=== PATIENT | female | born 1950 | race Caucasian/White ===

== ENCOUNTER 2019-06-12 11:58 | Outpatient (CLI) | payer MEDICARE, MEDICAID, SELFPAY ==
--- NOTE | 2019-06-12 12:01 | US_ITS ---
WS: [id number] ULTRASOUND-GUIDED LEFT BREAST BIOPSY CLINICAL INFORMATION: ABNORMAL MAMMOGRAM COMPARISON: None. FINDINGS: The procedure including risks, benefits, and complications were discussed with the patient who agreed to proceed. Using sterile technique patient was prepped and draped in the usual sterile fashion. Aft er 1% lidocaine utilizing real-time ultrasound guidance 7 14-gauge cores were obtained of the left br east lesion at the 10 o'clock position. Subsequently a titanium clip was placed in the biopsy cavity. No immediate complications. Area of biopsy was noted to be in the area of prior surgery with dense s car tissue in this area. Pathology demonstrates benign breast tissue and dense fibrosis. No malignancy identified. US/[place] [id number] IMPRESSION: 1. Uncomplicated ultrasound-guided left breast biopsy. 2. The pathology demonstrates benign breast tissue and dense fibrosis. No alba gnancy identified. Recommend 6 month follow-up diagnostic mammogram and ultraso und postbiopsy. BI-RADS: 3-Probably Benign FOLLOW UP: 6 Month Follow-up
[2019-06-12 12:35] LABS: INR 1.02 (0.8-1.2)
== END 2019-06-12 11:59 | disposition home or self-care (01) ==
LOC: RAD 11:58
PROVIDERS: Family Provider Family Medicine; PCP Family Medicine; Visit Provider Surgery
DX: Z01.812 Encounter for preprocedural laboratory examination (principal); R92.8 Other abnormal and inconclusive findings on diagnostic imaging of breast; N63.22 Unspecified lump in the left breast, upper inner quadrant
CPT/HCPCS: 19083; 36415; 85610; 88305; J2001

== ENCOUNTER → 2019-06-19 13:59 | Outpatient (BNVA) | payer MEDICARE, MEDICAID, SELFPAY | PROVIDERS: Family Provider Family Medicine; PCP Family Medicine; Visit Provider Anesthesiology | DX: M48.062 Spinal stenosis, lumbar region with neurogenic claudication (principal); M43.10 Spondylolisthesis, site unspecified; M54.2 Cervicalgia; M62.830 Muscle spasm of back; M79.671 Pain in right foot; M79.672 Pain in left foot; M17.12 Unilateral primary osteoarthritis, left knee; M25.561 Pain in right knee; Z79.891 Long term (current) use of opiate analgesic | CPT/HCPCS: 99214 ==

== ENCOUNTER → 2019-07-09 14:09 | Outpatient (BNVA) | payer MEDICARE, MEDICAID, SELFPAY | PROVIDERS: Family Provider Family Medicine; PCP Family Medicine; Visit Provider Family Medicine | DX: R19.7 Diarrhea, unspecified (principal) | CPT/HCPCS: 87493; 87505 ==

== ENCOUNTER → 2019-07-13 16:11 | Outpatient (BNVA) | payer MEDICARE, MEDICAID, SELFPAY | PROVIDERS: Family Provider Family Medicine; PCP Family Medicine; Visit Provider Family Medicine | DX: R19.7 Diarrhea, unspecified (principal) | CPT/HCPCS: 87505 ==

== ENCOUNTER → 2019-07-24 09:23 | Outpatient (BNVA) | payer MEDICARE, MEDICAID, SELFPAY | PROVIDERS: Family Provider Family Medicine; PCP Family Medicine; Visit Provider Family Medicine | DX: E03.9 Hypothyroidism, unspecified (principal); I10 Essential (primary) hypertension; E78.5 Hyperlipidemia, unspecified; Z87.39 Personal history of other diseases of the musculoskeletal system and connective tissue; K21.9 Gastro-esophageal reflux disease without esophagitis | CPT/HCPCS: 80053; 80061; 82044; 84443; 84550; 85025 ==

== ENCOUNTER → 2019-08-07 09:46 | Outpatient (BNVA) | payer MEDICARE, MEDICAID, SELFPAY | PROVIDERS: Family Provider Family Medicine; PCP Family Medicine; Visit Provider Nurse Practitioner | DX: Z76.89 Persons encountering health services in other specified circumstances (principal) | CPT/HCPCS: 99213 ==

== ENCOUNTER → 2019-11-27 13:20 | Outpatient (BNVA) | payer MEDICARE, MEDICAID, SELFPAY | PROVIDERS: Family Provider Family Medicine; PCP Family Medicine; Visit Provider Anesthesiology | DX: M54.41 Lumbago with sciatica, right side (principal); M48.062 Spinal stenosis, lumbar region with neurogenic claudication; M54.2 Cervicalgia; M43.10 Spondylolisthesis, site unspecified; Z79.891 Long term (current) use of opiate analgesic | CPT/HCPCS: 99214 ==

== ENCOUNTER → 2020-01-04 14:52 | Outpatient (BNVA) | payer MEDICARE, MEDICAID, SELFPAY | PROVIDERS: Family Provider Family Medicine; PCP Family Medicine; Referring Provider Surgery; Visit Provider Internal Medicine | DX: E03.9 Hypothyroidism, unspecified (principal); I10 Essential (primary) hypertension; I95.2 Hypotension due to drugs; R00.2 Palpitations; R11.0 Nausea | CPT/HCPCS: 84439; 84443; 99204 ==

== ENCOUNTER 2020-01-04 15:49 | Outpatient (CLI) | payer MEDICARE, MEDICAID, SELFPAY ==
[2020-01-04 17:09] LABS: Free T4 Free Thyroxine 1.66 ng/dL (0.82-1.77); Thyroid Stimulating Hormone 1.79 uIU/mL (0.27-4.20)
== END 2020-01-04 15:50 | disposition home or self-care (01) ==
LOC: LAB 15:54
PROVIDERS: PCP Family Medicine; Visit Provider Internal Medicine
DX: E03.9 Hypothyroidism, unspecified (principal)
CPT/HCPCS: 84439; 84443; 86376

== ENCOUNTER → 2020-01-15 13:39 | Outpatient (BNVA) | payer MEDICARE, MEDICAID, SELFPAY | PROVIDERS: PCP Family Medicine; Visit Provider Family Medicine | DX: I10 Essential (primary) hypertension (principal) | CPT/HCPCS: 80053; 80061 ==

== ENCOUNTER → 2020-01-27 13:26 | Outpatient (BNVA) | payer MEDICARE, MEDICAID, SELFPAY | PROVIDERS: Family Provider Family Medicine; PCP Family Medicine; Visit Provider Nurse Practitioner | DX: M48.062 Spinal stenosis, lumbar region with neurogenic claudication (principal); M54.41 Lumbago with sciatica, right side; M54.42 Lumbago with sciatica, left side; M54.2 Cervicalgia; M43.6 Torticollis; M25.561 Pain in right knee; M25.562 Pain in left knee; Z79.891 Long term (current) use of opiate analgesic | CPT/HCPCS: 99213; 99214 ==

== ENCOUNTER → 2020-01-29 15:08 | Outpatient (BNVA) | payer MEDICARE, MEDICAID, SELFPAY | PROVIDERS: Family Provider Family Medicine; PCP Family Medicine; Visit Provider Surgery | DX: Z20.828 Contact with and (suspected) exposure to other viral communicable diseases (principal) | CPT/HCPCS: 87635 ==

== ENCOUNTER 2020-01-30 13:43 | Inpatient (IN) | payer MEDICARE, MEDICAID, SELFPAY ==
[2020-01-30] VITALS (10 sets, daily range): BP systolic 103–121; BP diastolic 63–85; PULSE 68–168; RESP 16–96; TEMP 36.4–37.7; O2SAT 92–98; BMI 29.0
--- NOTE | 2020-01-30 13:55 | CTR_ITS ---
PROCEDURE INFORMATION: Exam: CT Angiography Abdomen and Pelvis With Contrast Exam date and time: 01/30/2020 2:34 PM Age: 69 years old Clinical indication: Abnormal findings; Abnormal lab test; Prior surgery; Surgery date: 6+ months; Surgery type: Hyst; Patient HX: C/O lower abd/pelvic pain w low h&h; Additional info: Abdominal pain TECHNIQUE: Imaging protocol: Computed tomographic angiography of the abdomen and pelvis with intravenous contrast material. 3D rendering (Not supervised by radiologist): MIP and/or 3D reconstructed images were created by the technologist. Radiation optimization: All CT scans at this facility use at least one of these dose optimization techniques: automated exposure control; mA and/or kV adjustment per patient size (includes targeted exams where dose is matched to clinical indication); or iterative reconstruction. Contrast material: OMNI 350; Contrast volume: 95 ml; Contrast route: INTRAVENOUS (IV); COMPARISON: No relevant prior studies available. RADIATION DOSE METRICS: Total DLP (mGy-cm): 1004.33 FINDINGS: Aorta: Scattered atherosclerotic plaque. No aortic aneurysm. No aortic dissection. Celiac trunk and mesenteric arteries: There is mild atherosclerotic plaque at the origin of the inferior mesenteric artery without significant stenosis or occlusion. No occlusion or significant stenosis. Renal arteries: No occlusion or significant stenosis. Right iliac arteries: No occlusion or significant stenosis. Left iliac arteries: No occlusion or significant stenosis. Liver: No mass. Gallbladder and bile ducts: Unremarkable. No calcified stones. No ductal dilation. Pancreas: Unremarkable. No mass. No ductal dilation. Spleen: Unremarkable. No splenomegaly. Adrenals: Unremarkable. No mass. Kidneys and ureters: Unremarkable. No solid mass. No hydronephrosis. Stomach and bowel: Multiple colonic diverticula. There is bowel wall thickening descending and rectosigmoid colon with adjacent mesenteric stranding. Appendix: No evidence of appendicitis. Intraperitoneal space: Unremarkable. No free air. No significant fluid collection. Lymph nodes: Unremarkable. No enlarged lymph nodes. Bladder: There is a small focus of air in the bladder, likely iatrogenic in nature. Reproductive: The uterus is not visualized, consistent with hysterectomy. Bones/joints: There are severe degenerative changes in the visualized spine. Lumbar levoscoliosis. Multilevel lumbar disc osteophyte complexes contribute to canal and bilateral neural foraminal narrowing. Soft tissues: Tiny fat containing umbilical hernia. Small fat containing right inguinal hernia. CT/CT angio abdomen pelvis [id number] IMPRESSION: There is bowel wall thickening of the descending and rectosigmoid colon. In the setting of a low H&H, submucosal hemorrhage is a consideration. Differential includes nonspecific colitis as well. Radiation Dose CTDIVOL = (mGy): DLP = 1004.33 (mGy-cm)
--- NOTE | 2020-01-30 14:10 | W.ED.NAVMDI ---
HPI - Nausea/Vomiting/Diarrhea General: Chief complaint: Nausea/Vomiting/Diarrhea Stated complaint: abd pain/n Time Seen by Provider: 01/30/20 13:47 Source: patient Mode of arrival: ambulatory Limitations: no limitations History of Present Illness: HPI Narrative: Lexii maxwell 69-year-old female who comes in complaining of nausea along with diarrhea and abdominal pain. Patient states her diarrhea has been loose and mucus in nature. She is had no blood in her stool but she has hemorrhoids and blood on the toilet paper when she wipes. She is not been vomiting. She denies any fevers or chills. She does not report any urinary symptoms such as dysuria or urinary frequency/urgency. She has not reported any vaginal discharge or bleeding. Patient states approximately 1 year ago she had shigellosis and was treated with antibiotics but since that time she has had problems with her bowels. The to live in the past 3 days that things have gotten worse. She is scheduled for a follow-up colonoscopy but has not had this done yet. States she has abdominal cramping with this that is intermittent in nature. It waxes and wanes in intensity when it comes on. She is unaware of anything at home that makes her symptoms better or worse. Associated nausea: Yes Associated symtoms: Reports nausea; Denies change in vision, chest pain, diaphoresis, dizziness, dysuria, fatigue, headache(s), malaise, palpitations or syncope Review of Systems Const: Denies: fever(s), chills, body aches, fatigue, malaise or diaphoresis Eyes: Denies: change in vision, blurry vision, photophobia, eye discomfort, eye discharge, eye redness or yellow eyes ENMT: Denies: throat pain, odynophagia, hoarseness, swelling of lips/tongue, ear or mastoid pain, ear discharge, change in hearing or nasal discharge Card: Denies: chest pain, palpitations, irregular heart rhythm, edema, lightheadedness, syncope, pre-syncope, dyspnea on exertion or orthopnea Resp: Denies: dyspnea, productive cough, non-productive cough, wheezing, hemoptysis or chest congestion GI: Reports: abdominal pain, nausea and diarrhea; Denies: vomiting, hematemesis, coffee ground emesis, heartburn, constipation, GI cramping, hematochezia or melena : Denies: flank pain, dysuria, urinary frequency, urinary urgency or hematuria Musc: Denies: neck pain, back pain, extremity pain, extremity swelling, joint pain, joint swelling, joint redness, joint warmth or joint stiffness Skin/Breast: Denies: rash, pruritus, erythema, skin pain or skin tenderness Neuro: Denies: headache(s), numbness in extremities, weakness in extremities, sensory changes, lack of coordination, difficulty walking, dizziness, vertigo, confusion, Slurred speech present or seizure-like activity Zach/Lymph: Denies: easy bruising, easy bleeding, petechiae, purpura or enlarged lymph nodes All/Imm: Denies: urticaria, throat swelling, tongue swelling, facial swelling or acute wheezing PFSH ED PFSH: Medical History (Updated 01/30/20 @ 22:32 by Daxa Mcmahon) Abnormal mammogram Acute bilateral knee pain Acute neck pain Arthritis of knee, left Benign essential HTN Bilateral foot pain Bladder incontinence Constipation Diverticular disease Dyslipidemia Encounter for long-term use of opiate analgesic History of gout History of shingles Hx of diabetes mellitus HX: breast cancer Hypothyroidism Lumbar paraspinal muscle spasm Pain amplification syndrome Polyneuropathy, unspecified Restless legs syndrome Retrolisthesis of vertebrae Shigellosis, unspecified Spinal stenosis, lumbar region with neurogenic claudication Surgical History H/O colonoscopy H/O: hysterectomy History of lumpectomy of left breast Hx of arthroscopy of knee Hx of cataract surgery Family History Other Cancer Diabetes Denies family history of Anesthesia complication Bleeding disorder Social History Smoking and tobacco status: former smoker Second hand smoke exposure: No Alcohol intake: never Lives independently: Yes Marital status: Single Current occupational status: retired History of recent travel: No Physical Exam Const: COMMON NORMALS: no acute distress, patient oriented x3, no limitations and alert GENERAL APPEARANCE: cooperative HENMT: COMMON NORMALS: normocephalic, atraumatic, external ears normal, EAC's normal and Normal external nose present HEAD & SCALP: normal to inspection, normocephalic and atraumatic FACE & SINUS: normal facial exam and face symmetric NOSE: Normal external nose present and Normal nares present EXTERNAL EAR: Yes external ears normal EXTERNAL AUDITORY CANAL: EAC's normal MOUTH: Normal oral and palatal mucosa present, lip normal and tongue normal Eye: COMMON NORMALS: Equal, round and reactive pupils present and conjunctivae normal GENERAL EYE: appearance normal, both eyes and all related structures ALIGNMENT: Yes alignment normal PERIORBITAL: periorbital findings normal EYELID: eyelids normal CONJUNCTIVA: Yes conjunctivae normal SCLERA: sclerae normal PUPIL: Yes Equal, round and reactive pupils present Neck/C-Spine: COMMON NORMALS: full ROM, no lymphadenopathy, supple, no meningeal signs and no JVD GENERAL: Yes normal visual inspection and Yes trachea midline Chest: COMMONS NORMALS: normal inspection of the chest and normal palpation of entire chest wall Resp: COMMON NORMALS: normal respiratory effort, No retractions, No use of accessory muscles and clear to auscultation bilaterally EFFORT & INSPECTION: Yes able to speak in complete sentences and Yes symmetric chest movement AUSCULTATION: clear to auscultation bilaterally, no crackles, no rales, no rhonchi and no wheezes Cardio: COMMON NORMALS: no JVD, regular rate, regular rhythm, S1 normal heart sound present and S2 normal heart sound present RATE: regular rate RHYTHM: regular rhythm HEART SOUNDS: S1 normal heart sound present, S2 normal heart sound present, no click, no gallops, no murmurs and no rubs GI: COMMON NORMALS: Soft to palpation and No hepatosplenomegaly present PALPATION: Yes Soft to palpation, Yes Tenderness to palpation present (GI) (Mild tenderness in the left upper quadrant and left lower quadrant. No rebound or guarding.), No Guarding due to palpation present (GI), No Rigid due to palpation, Yes No hepatosplenomegaly present, No Hernia present, No Palpable mass present and No Pulsatile mass present RECTAL EXAM: heme positive stool (Stool was light brown in color there was no gross blood present.) trace and External hemorrhoid(s) present : COMMON NORMALS: Yes no CVA tenderness BLADDER/KIDNEY EXAM: Yes no CVA tenderness EXTERNAL FEMALE EXAM: No Hernia present Back/Pelvis: COMMON NORMALS: no CVA tenderness, thoracic and lumbar spine normal to inspection, no thoracic nor lumbar tenderness and thoraco-lumbar ROM normal Extremity: COMMON NORMALS: normal to inspection, full ROM, capillary refill normal, no joint enlargement, no clubbing, cyanosis or edema and no calf tenderness Neuro: COMMON NORMALS: patient oriented x3, CN's II-XII intact bilaterally, moves all extremities, no focal motor deficits and no sensory deficits noted SENSORIUM/ORIENTATION: Yes alert MENINGEAL SIGNS: Yes no meningeal signs SPEECH: speech normal Psych: COMMON NORMALS: mental status grossly normal, Normal thought process present, cooperative, normal affect, speech normal and activity/motor behavior normal SPEECH: Yes normal speech THOUGHT PROCESS: Normal thought process present Skin: COMMON NORMALS: no rashes or lesions noted, turgor normal, no jaundice, no petechiae and no mottling GENERAL SKIN EXAM: no rashes or lesions noted and turgor normal Course ED course: 1530 -patient states she felt palpitations when she came back from CT. She felt the start when her the IV dye was given. Patient was found to be in SVT on the monitor. We tried vagal maneuvers but she did not respond. After 6 mg of adenosine her heart converted back to normal sinus rhythm. Patient denied any chest pain or shortness of breath with this but she did feel the palpitations. When she was converted she states all of her palpitations were gone. 0 -patient has a delta of 19 on her cardiac enzymes. 30 EKG shows no sign of ST segment elevation. Patient has no chest pain. I believe this elevation is likely due to the SVT that she had. I informed Dr. Gibbs that he is aware. Vital Signs: Vital signs: Vital Signs Temperature 99.8 F H 01/30/20 22:00 Pulse Rate 72 01/30/20 22:19 Respiratory Rate 18 01/30/20 22:19 Blood Pressure 116/64 01/30/20 22:19 Pulse Oximetry 98 01/30/20 22:19 MDM - Nausea/Vomiting/Diarrhea MDM Narrative: Medical decision making narrative: The patient was going to be discharged but she states she cannot handle the nausea and she is too weak. The case was discussed with Dr. Krause he agreed to come evaluate the patient for possible admission. He is aware about the patient's SVT and conversion. Lab Data: Labs: Lab Results 01/30/20 01/30/20 01/30/20 Range/Units 14:23 14:23 14:23 WBC 8.9 (4.0-10.0) 10^3/ uL RBC 4.44 (4.1-5.3) 10^6/u L Hgb 11.1 L (11.5-15.3) g/dL Hct 35.1 L (37.0-47.0) % MCV 79.1 L (81-99) fL MCH 25.0 L (28.0-34.0) pg MCHC 31.6 (30.0-36.0) g/dL RDW 15.9 H (12.1-15.1) % Plt Count 448 H (130-400) 10^3/c mm MPV 8.7 (7.4-10.4) fL Neut % (Auto) 74.5 % Lymph % (Auto) 8.8 % [place] % (Auto) 13.1 % Eos % (Auto) 2.3 % Baso % (Auto) 0.8 % Neut # (Auto) 6.63 (1.8-7.7) 10^3/u L Lymph # (Auto) 0.8 (0.8-4.8) 10^3/u L [place] # (Auto) 1.2 H (0.2-0.9) 10^3/u L Eos # (Auto) 0.2 (0.0-0.8) 10^3/u L Baso # (Auto) 0.1 (0.0-0.1) 10^3/u L Nucleated RBC % (a uto) 0 % Nucleated RBCs # 0.0 /100WBC Sodium 133 L (136-145) mmol/L Potassium 3.8 (3.5-5.1) mmol/L Chloride 98 (98-107) mmol/L Carbon Dioxide 25 (22-29) mmol/L Anion Gap 13.8 (5-19) BUN 11 (8-23) mg/dL Creatinine 1.0 H (0.5-0.9) mg/dL GFR Calculation 55.0 L (90-130) mL/min Glucose 133 H (65-115) mg/dL Estimat Average Gl ucose Hemoglobin A1c (4.0-6.0) % Calculated Osmolal ity 277 L (285-295) mOsm/k g Lactic Acid 1.1 (0.5-2.2) mmol/L Calcium 9.0 (8.5-10.5) mg/dL Magnesium 2.0 (1.7-2.3) mg/dL Total Bilirubin 0.3 (0.15-1.2) mg/dL AST 9 (0-32) U/L ALT 8 (0-33) U/L Alkaline Phosphata se 100 (35-105) IU/L Troponin T Baselin e (0-10) ng/L Troponin T 120 Min [place] band (0-10) ng/L Delta Troponin T (0-10) ABS# Total Protein 7.6 (6.6-8.7) g/dL Albumin 3.2 L (3.5-5.2) g/dL Globulin 4.4 (1.3-4.6) g/dL Lipase 13 (13-60) U/L Urine Color (Yellow) Urine Appearance (CLEAR) Urine pH (5-7) Ur Specific Gravit y (1.005-1.030) Urine Protein (Negative) Urine Glucose (UA) (Normal) Urine Ketones (Negative) Urine Blood (Negative) Urine Nitrate (Negative) Urine Bilirubin (Negative) Urine Urobilinogen (Negative) mg/dL Ur Leukocyte Carol ase (Negative) Urine RBC (0-2) /hpf Urine WBC (0-5) /hpf Ur Squamous Epith Cells (0-5) /hpf Amorphous Sediment Urine Bacteria (NONE) /hpf 01/30/20 01/30/20 01/30/20 Range/Units 14:23 14:23 16:08 WBC (4.0-10.0) 10^3/ uL RBC (4.1-5.3) 10^6/u L Hgb (11.5-15.3) g/dL Hct (37.0-47.0) % MCV (81-99) fL MCH (28.0-34.0) pg MCHC (30.0-36.0) g/dL RDW (12.1-15.1) % Plt Count (130-400) 10^3/c mm MPV (7.4-10.4) fL Neut % (Auto) % Lymph % (Auto) % [place] % (Auto) % Eos % (Auto) % Baso % (Auto) % Neut # (Auto) (1.8-7.7) 10^3/u L Lymph # (Auto) (0.8-4.8) 10^3/u L [place] # (Auto) (0.2-0.9) 10^3/u L Eos # (Auto) (0.0-0.8) 10^3/u L Baso # (Auto) (0.0-0.1) 10^3/u L Nucleated RBC % (a uto) % Nucleated RBCs # /100WBC Sodium (136-145) mmol/L Potassium (3.5-5.1) mmol/L Chloride (98-107) mmol/L Carbon Dioxide (22-29) mmol/L Anion Gap (5-19) BUN (8-23) mg/dL Creatinine (0.5-0.9) mg/dL GFR Calculation (90-130) mL/min Glucose (65-115) mg/dL Estimat Average Gl ucose 123 Hemoglobin A1c 5.9 (4.0-6.0) % Calculated Osmolal ity (285-295) mOsm/k g Lactic Acid (0.5-2.2) mmol/L Calcium (8.5-10.5) mg/dL Magnesium (1.7-2.3) mg/dL Total Bilirubin (0.15-1.2) mg/dL AST (0-32) U/L ALT (0-33) U/L Alkaline Phosphata se (35-105) IU/L Troponin T Baselin e 6 (0-10) ng/L Troponin T 120 Min [place] band (0-10) ng/L Delta Troponin T (0-10) ABS# Total Protein (6.6-8.7) g/dL Albumin (3.5-5.2) g/dL Globulin (1.3-4.6) g/dL Lipase (13-60) U/L Urine Color Straw (Yellow) Urine Appearance Hazy A (CLEAR) Urine pH 7 (5-7) Ur Specific Gravit y 1.000 L (1.005-1.030) Urine Protein Neg (Negative) Urine Glucose (UA) Norm (Normal) Urine Ketones 1+ H (Negative) Urine Blood 2+ H (Negative) Urine Nitrate Positive H (Negative) Urine Bilirubin Neg (Negative) Urine Urobilinogen Norm (Negative) mg/dL Ur Leukocyte Carol ase Negative (Negative) Urine RBC 0-4 H (0-2) /hpf Urine WBC 10-15 H (0-5) /hpf Ur Squamous Epith Cells 0-4 H (0-5) /hpf Amorphous Sediment Not Reportable Urine Bacteria 3+ H (NONE) /hpf 01/30/20 Range/Units 16:22 WBC (4.0-10.0) 10^3/ uL RBC (4.1-5.3) 10^6/u L Hgb (11.5-15.3) g/dL Hct (37.0-47.0) % MCV (81-99) fL MCH (28.0-34.0) pg MCHC (30.0-36.0) g/dL RDW (12.1-15.1) % Plt Count (130-400) 10^3/c mm MPV (7.4-10.4) fL Neut % (Auto) % Lymph % (Auto) % [place] % (Auto) % Eos % (Auto) % Baso % (Auto) % Neut # (Auto) (1.8-7.7) 10^3/u L Lymph # (Auto) (0.8-4.8) 10^3/u L [place] # (Auto) (0.2-0.9) 10^3/u L Eos # (Auto) (0.0-0.8) 10^3/u L Baso # (Auto) (0.0-0.1) 10^3/u L Nucleated RBC % (a uto) % Nucleated RBCs # /100WBC Sodium (136-145) mmol/L Potassium (3.5-5.1) mmol/L Chloride (98-107) mmol/L Carbon Dioxide (22-29) mmol/L Anion Gap (5-19) BUN (8-23) mg/dL Creatinine (0.5-0.9) mg/dL GFR Calculation (90-130) mL/min Glucose (65-115) mg/dL Estimat Average Gl ucose Hemoglobin A1c (4.0-6.0) % Calculated Osmolal ity (285-295) mOsm/k g Lactic Acid (0.5-2.2) mmol/L Calcium (8.5-10.5) mg/dL Magnesium (1.7-2.3) mg/dL Total Bilirubin (0.15-1.2) mg/dL AST (0-32) U/L ALT (0-33) U/L Alkaline Phosphata se (35-105) IU/L Troponin T Baselin e (0-10) ng/L Troponin T 120 Min [place] band 6.27 (0-10) ng/L Delta Troponin T 0.27 (0-10) ABS# Total Protein (6.6-8.7) g/dL Albumin (3.5-5.2) g/dL Globulin (1.3-4.6) g/dL Lipase (13-60) U/L Urine Color (Yellow) Urine Appearance (CLEAR) Urine pH (5-7) Ur Specific Gravit y (1.005-1.030) Urine Protein (Negative) Urine Glucose (UA) (Normal) Urine Ketones (Negative) Urine Blood (Negative) Urine Nitrate (Negative) Urine Bilirubin (Negative) Urine Urobilinogen (Negative) mg/dL Ur Leukocyte Carol ase (Negative) Urine RBC (0-2) /hpf Urine WBC (0-5) /hpf Ur Squamous Epith Cells (0-5) /hpf Amorphous Sediment Urine Bacteria (NONE) /hpf EKG Data^: EKG 1: Attestation: I personally reviewed and interpreted this EKG as follows: EKG interpretation date: 01/30/20 EKG interpretation time: 15:28 Interpretation: Supraventricular tachycardia with a ventricular rate of 173 beats a minute, normal axis, normal QTC. EKG 2: Attestation: I personally reviewed and interpreted this EKG as follows: EKG interpretation date: 01/30/20 EKG interpretation time: 15:58 Interpretation: Ectopic atrial rhythm with ventricular rate of 79 beats a minute, nonspecific ST and T wave changes. Discharge Plan Discharge Patient Disposition: Placed in Observation Admit Provider: Willie Krause Clinical Impression: Colitis, SVT (supraventricular tachycardia) Condition: Stable Referrals: Adela Phillips DO [Primary Care Provider] - 1-3 days Patient Instructions: Infectious Colitis (ED) Additional Instructions: Please return to the ER immediately for any of the signs or symptoms listed on your discharge instruction sheets, worsening/changing of your symptoms, you are not getting better as quickly as expected, or for ANY other cause or concerns. Stop your tizanidine while you are taking the ciprofloxacin for your bowel infection. Return your stool sample to the hospital so analysis can be performed. Follow a clear liquid diet and advance it as you can tolerate as your pain resolves. Follow-up with Dr. Phillips for results of your stool studies and for recheck of your symptoms. Return to the ER for fever, vomiting, increased pain, blood in your stools, or for any other cause for concern. Interventions: ED Discharge Assessment Last Done: 01/30/20 22:19 ED Charges Last Done: 01/30/20 22:19 Discharge Date/Time: 01/30/20 22:10 Coding Level of Care Code ED Enterprise Software Engineer for Chg Fwd Exam Comprehensive
[2020-01-30 14:32] LABS: Basophils # 0.1 10^3/uL (0.0-0.1); Basophils % 0.8 %; Eosinophils # 0.2 10^3/uL (0.0-0.8); Eosinophils % 2.3 %; Hematocrit 35.1 % (37.0-47.0); Hemoglobin 11.1 g/dL (11.5-15.3); Lymphocytes # 0.8 10^3/uL (0.8-4.8); Lymphocytes % 8.8 %; Mean Corpuscular HGB Conc 31.6 g/dL (30.0-36.0); Mean Corpuscular Volume 79.1 fL (81-99); Mean Platelet Volume 8.7 fL (7.4-10.4); Monocytes # 1.2 10^3/uL (0.2-0.9); Monocytes % 13.1 %; Neutrophils # 6.63 10^3/uL (1.8-7.7); Neutrophils % 74.5 %; Nucleated Red Blood Cells % 0 %; Platelet Count 448 10^3/cmm (130-400); Red Blood Count 4.44 10^6/uL (4.1-5.3); Red Cell Distribution Width 15.9 % (12.1-15.1); White Blood Count 8.9 10^3/uL (4.0-10.0)
[2020-01-30] MEDS: morphine 4 mg/mL SDV 1 mL IVP ×2 (14:46→17:24)
[2020-01-30] MEDS: ondansetron 2 mg/ML SDV 2 mL 4 MG IVP ×3 (14:46→17:25)
[2020-01-30] MEDS: sodium chloride 0.9% 1,000 ML 100 ML IV ×2 (14:47→23:48)
[2020-01-30] MEDS: iohexol 350 mg/mL 100 mL Btl IV (14:54)
[2020-01-30 14:56] LABS: Alanine Aminotransferase 8 U/L (0-33); Albumin Level 3.2 g/dL (3.5-5.2); Alkaline Phosphatase 100 IU/L (35-105); Anion Gap 13.8 (5-19); Aspartate Amino Transferase 9 U/L (0-32); Blood Urea Nitrogen 11 mg/dL (8-23); Carbon Dioxide 25 mmol/L (22-29); Chloride 98 mmol/L (98-107); Globulin 4.4 g/dL (1.3-4.6); Glucose 133 mg/dL (65-115); Lipase 13 U/L (13-60); Osmolality Calculated 277 mOsm/kg (285-295); Potassium 3.8 mmol/L (3.5-5.1); Sodium 133 mmol/L (136-145); Total Bilirubin 0.3 mg/dL (0.15-1.2); Total Protein 7.6 g/dL (6.6-8.7)
--- NOTE | 2020-01-30 15:18 | ECG_ITS ---
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 Measurements Intervals [place] Rate: 173 P: ND: -1 QRS: 38 QRSD: 90 T: 33 QT: 250 QTc: 425 Interpretive Statements SUPRAVENTRICULAR TACHYCARDIA MODERATE ST DEPRESSION [0.05+ mV ST DEPRESSION] No previous ECG available for comparison Electronically Signed On 01-30-2020 17:19:36 CDT by Ras Chambers M.D. [id number]
[2020-01-30] MEDS: sodium chloride 0.9% 1,000 ML 999 ML IV ×2 (15:21→16:00)
--- NOTE | 2020-01-30 15:23 | PC.NURSE ---
Place Electrode, rate 1698-175, informed Dr Mcmahon
[2020-01-30 15:24] LABS: Lactic Sepsis W/Reflex 1.1 mmol/L (0.5-2.2)
[2020-01-30 15:37] LABS: Troponin(5th) Baseline 6 ng/L (0-10)
[2020-01-30] MEDS: adenosine 3 mg/mL SDV 2mL 6 MG IVP (16:11)
[2020-01-30 16:29] LABS: Add Urine Microscopic? YES; Bilirubin Urine Neg (Negative); Blood Urine 2+ (Negative); Glucose Urine UA Norm (Normal); Ketones Urine 1+ (Negative); Leukocyte Esterase Urine Negative (Negative); Nitrate Urine Positive (Negative); Protein Urine Neg (Negative); Urine Appearance Hazy (CLEAR); Urine Color Straw (Yellow); Urobilinogen Urine Norm (Negative); pH Urine 7 (5-7)
[2020-01-30 16:41] LABS: Add Urine Culture? Yes; Bacteria Urine 3+ /hpf; RBC Urine 0-4 /hpf (0-2); Squamous Epithelial Cell Urine 0-4 /hpf (0-5)
[2020-01-30 17:01] LABS: Troponin 5 2HR 6.27 ng/L (0-10); Troponin 5 2HR Delta 0.27 ABS# (0-10)
--- NOTE | 2020-01-30 17:18 | ECG_ITS ---
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 Measurements Intervals [place] Rate: 79 P: -85 [place]: 156 QRS: 29 QRSD: 99 T: -77 QT: 377 QTc: 432 Interpretive Statements ECTOPIC ATRIAL RHYTHM LOW QRS VOLTAGE IN EXTREMITY LEADS [QRS DEFLECTION < 0.5 mV IN LIMB LEADS] ABNORMAL QRS-T ANGLE [QRS-T AXIS DIFFERENCE > 60] Compared to ECG 01/30/2020 15:28:38 Ectopic atrial rhythm now present Low QRS voltage now present Supraventricular tachycardia no longer present ST (T wave) deviation no longer present Electronically Signed On 01-30-2020 18:00:47 CDT by Ras Chambers M.D. [id number]
[2020-01-30] MEDS: metroNIDAZOLE 500 MG Tablet PO (17:23)
[2020-01-30] MEDS: ciprofloxacin 500 mg Tablet PO (17:23)
[2020-01-30] MEDS: piperacillin-tazobactam 3.375 GM in sodium chloride 0.9% (plus) 50 ML IV (17:24)
--- NOTE | 2020-01-30 18:01 | PC.NURSE ---
Dr Ramos in room
--- NOTE | 2020-01-30 18:11 | P.HP_ITS ---
Providers/Chief Complaint Primary Care Provider: Adela Phillips DO Chief Complaint: abd pain/n History of Present Illness Nicolette Smallwood is a 69 year old female with history of abdominal discomfort for the last year, worse in the last week. She describes nausea, passing of mucus with some flecks of blood. She states she passes the mucus about 10 times a day, and sometimes it is uncontrollable. She states bowel movements with stool are less frequent. She did have loose bowel movements over the last for 3 days. Prior to that she would pass hard stools about every 5 days. Last bowel movement this morning, hard ball of stool. She states she is so nauseated lately she cannot keep any solids down, and can only drink liquids. She had a fever about a week ago but none recently. No vomiting, hematemesis, bright red blood in stool, or black or tarry stools. She states 1 year ago she has a history of Shigella, and a colonoscopy following this was normal. She reports that surgery is planning on doing a colonoscopy on her next week. Review of Systems General: Reports: 10 or more systems reviewed and unremarkable except in HPI and below Const: Denies: fever(s) or chills Eyes: Denies: change in vision ENMT: Denies: throat pain Card: Denies: chest pain Resp: Denies: dyspnea GI: Reports: abdominal pain, nausea and constipation; Denies: vomiting : Denies: flank pain Musc: Denies: neck pain Skin/Breast: Denies: rash Neuro: Denies: headache(s) Psych: Denies: anxiety Endo: Denies: polyuria Zach/Lymph: Denies: easy bruising All/Imm: Denies: urticaria Medications/Allergies Home Medications Medication Instructions Recorded Confirmed Last Taken Type allopurinol 100 mg tablet 100 mg PO DAILY 06/19/19 01/30/20 01/29/20 History bimatoprost 0.01 % eye drops 2 drop OPHTHALMIC (EYE) BEDTIME 08/07/19 01/30/20 01/29/20 History levothyroxine 137 mcg tablet 137 mcg PO DAILY #90 tab 01/05/20 01/30/20 01/30/20 Rx hydrocodone 10 mg-acetaminophen 1 tab PO TID PRN 30 Days #90 tab 01/27/20 01/30/20 01/30/20 07:30 Rx 325 mg tablet tizanidine 4 mg tablet 4 mg PO TID PRN #90 tab 01/27/20 01/30/20 Unknown Rx esomeprazole magnesium 40 mg 40 mg PO DAILY #90 cap 01/28/20 01/30/20 01/29/20 Rx capsule,delayed release furosemide 20 mg tablet 20 mg PO DAILY PRN #30 tab 01/28/20 01/30/20 Unknown Rx montelukast 10 mg tablet 10 mg PO DAILY #90 tab 01/28/20 01/30/20 01/29/20 Rx potassium chloride 10 mEq 10 meq PO DAILY #90 tab 01/28/20 01/30/20 01/30/20 Rx tablet,extended release(part/cryst) solifenacin 10 mg tablet 10 mg PO DAILY #90 tab 01/28/20 01/30/20 01/30/20 Rx ciprofloxacin HCl [Cipro] 500 mg PO BID #20 tab 01/30/20 Unknown Rx dicyclomine 20 mg PO QID 10 Days #40 tab 01/30/20 Unknown Rx loratadine 10 mg PO DAILY 01/30/20 01/30/20 01/30/20 History losartan 50 mg PO DAILY 01/30/20 01/30/20 Unknown History metronidazole [Flagyl] 500 mg PO TID 10 Days #30 tab 01/30/20 Unknown Rx promethazine 25 mg PO Q4H PRN #20 tab 01/30/20 Unknown Rx Allergies Allergy/AdvReac Type Severity Reaction Status Date / Time meloxicam [From Mobic] Allergy myalgia Verified 01/30/20 15:10 pneumococcal 7-valent Allergy ALGY-Joint Verified 01/30/20 15:10 conjugate to Pain PFSH Acute PFSH: Medical History (Updated 01/30/20 @ 18:20 by Willie Krause MD) Abnormal mammogram Acute bilateral knee pain Acute neck pain Arthritis of knee, left Benign essential HTN Bilateral foot pain Bladder incontinence Constipation Diverticular disease Dyslipidemia Encounter for long-term use of opiate analgesic History of gout History of shingles Hx of diabetes mellitus HX: breast cancer Hypothyroidism Lumbar paraspinal muscle spasm Pain amplification syndrome Polyneuropathy, unspecified Restless legs syndrome Retrolisthesis of vertebrae Shigellosis, unspecified Spinal stenosis, lumbar region with neurogenic claudication Surgical History H/O colonoscopy H/O: hysterectomy History of lumpectomy of left breast Hx of arthroscopy of knee Hx of cataract surgery Family History Other Cancer Diabetes Denies family history of Anesthesia complication Bleeding disorder Social History Smoking and tobacco status: former smoker Second hand smoke exposure: No Alcohol intake: never Lives independently: Yes Marital status: Single Current occupational status: retired History of recent travel: No Vitals/I&O/Wt Last Vital Signs Temp 97.6 F 01/30/20 13:49 Pulse 86 01/30/20 17:22 Resp 18 01/30/20 17:24 BP 104/69 01/30/20 17:22 Pulse Ox 95 01/30/20 17:22 01/30/20 01/30/20 01/30/20 06:59 14:59 22:59 Intake Total 649.35 / 649.35 Balance 649.35 / 649.35 Weight last 48 hrs Weight 81.647 kg Physical Exam Narrative: EXAM NARRATIVE: General exam is a white female, complaining of lower abdominal pain. HEENT: Pupils equally round. Oropharynx clear. Neck is supple no lymphadenopathy or thyromegaly Cardiovascular regular rate and rhythm, no murmur Lungs clear Abdomen soft. No organomegaly. Tenderness below umbilicus bilaterally. No rebound. Positive bowel sounds. was deferred Extremities no cyanosis clubbing or edema, cap refill brisk Skin no rash Neuro no focal deficits. Data : 01/30/20 14:23 01/30/20 14:23 Other data: Lactate, LFTs, troponin all normal. Urinalysis demonstrates 10-15 whites and 0-4 reds. 3+ bacteria and positive nitrates. She has a screening nasal COVID for surgery that is pending. Chest x-ray demonstrates normal sinus rhythm, equivocal axis. Nonspecific ST-T wave flattening inferiorly CT demonstrates bowel thickening of the distal descending and rectosigmoid colon possible colitis. Diverticuli are noted. A&P Assessment and plan (1) Abdominal pain: This could be secondary to her UTI, or secondary to her constipation. There is some concerns of colitis on CT so I suppose this is possible as well. She has quite a few diverticuli. We will go ahead and get a surgery consult. She has been seeing Dr. Mjeia with a colonoscopy planned next week. Status: Acute (2) Colitis: Initiation of Cipro, Flagyl Clear liquids Status: Acute (3) Constipation: MiraLAX twice daily Colace twice daily Status: Acute (4) UTI (urinary tract infection): Cipro should cover urinary tract infection Urine culture Status: Acute (5) Anemia: Mild. Monitor. Status: Acute Additional A&P Information Mild dehydration/acute kidney injury. Fluids overnight. Chronic pain, on chronic narcotics History of hypertension. Continue home medicines Hypothyroidism continue Synthroid GERD. Protonix twice daily Gout Past history of diabetes, now diet controlled Full code Low risk for DVT. No prophylaxis currently. Observation patient. Attestations Medical Necessity Statement*: Will need less than 2 midnight stay for evaluation and treatment of abdominal pain, colitis, UTI. 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
[2020-01-30 21:14] LABS: Troponin 5 6HR 25.09 ng/L (0-10)
[2020-01-30 21:24] LABS: Troponin 5 6HR Delta 19.09 ng/L (0-12)
[2020-01-30 22:14] LABS: Estmated Average Glucose 123; Hemoglobin A1C 5.9 % (4.0-6.0)
[2020-01-30] MEDS: metroNIDAZOLE IV 500 MG/100 ML PREMIX 100 MG IV (23:51)
[2020-01-31] VITALS (7 sets, daily range): BP systolic 92–120; BP diastolic 59–76; PULSE 65–76; RESP 17–20; TEMP 36.1–37.2; O2SAT 92–97
[2020-01-31] MEDS: HYDROcodone-acetaminophen 10-325 mg Tablet 1 TAB PO ×3 (00:12→18:14)
[2020-01-31] MEDS: ondansetron 2 mg/ML SDV 2 mL 4 MG IVP ×3 (00:20→15:14)
[2020-01-31] MEDS: ciprofloxacin 400 MG/200 ML PREMIX 200 MG IV ×2 (01:08→14:18)
[2020-01-31 04:26] LABS: Basophils # 0.1 10^3/uL (0.0-0.1); Basophils % 0.9 %; Eosinophils # 0.3 10^3/uL (0.0-0.8); Eosinophils % 4.3 %; Hematocrit 29.6 % (37.0-47.0); Hemoglobin 9.3 g/dL (11.5-15.3); Lymphocytes # 0.7 10^3/uL (0.8-4.8); Lymphocytes % 10.6 %; Mean Corpuscular HGB Conc 31.4 g/dL (30.0-36.0); Mean Corpuscular Hemoglobin 25.5 pg (28.0-34.0); Mean Corpuscular Volume 81.1 fL (81-99); Mean Platelet Volume 8.7 fL (7.4-10.4); Monocytes # 1.1 10^3/uL (0.2-0.9); Monocytes % 16.9 %; Neutrophils # 4.38 10^3/uL (1.8-7.7); Neutrophils % 67.1 %; Nucleated Red Blood Cells % 0 %; Platelet Count 367 10^3/cmm (130-400); Red Blood Count 3.65 10^6/uL (4.1-5.3); Red Cell Distribution Width 15.8 % (12.1-15.1); White Blood Count 6.5 10^3/uL (4.0-10.0)
[2020-01-31] MEDS: metroNIDAZOLE IV 500 MG/100 ML PREMIX 100 MG IV ×3 (04:33→21:56)
[2020-01-31 04:49] LABS: Alanine Aminotransferase 6 U/L (0-33); Albumin Level 2.5 g/dL (3.5-5.2); Alkaline Phosphatase 75 IU/L (35-105); Anion Gap 12.8 (5-19); Aspartate Amino Transferase 7 U/L (0-32); Blood Urea Nitrogen 8 mg/dL (8-23); Calcium 7.6 mg/dL (8.5-10.5); Carbon Dioxide 24 mmol/L (22-29); Chloride 103 mmol/L (98-107); Creatinine Clr Calc Pharmacy 71.4967; Globulin 3.5 g/dL (1.3-4.6); Glucose 90 mg/dL (65-115); Osmolality Calculated 280 mOsm/kg (285-295); Potassium 3.8 mmol/L (3.5-5.1); Sodium 136 mmol/L (136-145); Total Bilirubin 0.3 mg/dL (0.15-1.2)
--- NOTE | 2020-01-31 06:35 | P.CONIM_ITS ---
Providers/Reason For Consult Consulting Physican/Specialty*: David Mejia MD Reason for Consult*: Colitis and abdominal pain Attending Physician: Willie Krause MD Primary Care Provider: Adela Phillips DO History of Present Illness History of Present Illness Chief Complaint: I am hurting History of present illness: Nicolette Smallwood is a 69 year old female known to me from previous clinical encounters, presents to the emergency department with worsening abdominal pain particularly on the left side patient has been having mucousy discharge per rectum and she is well known to have history of chronic constipation. Patient is scheduled by me to get a colonoscopy this coming Saturday CT scan of the abdomen and pelvis showed: FINDINGS: Aorta: Scattered atherosclerotic plaque. No aortic aneurysm. No aortic dissection. Celiac trunk and mesenteric arteries: There is mild atherosclerotic plaque at the origin of the inferior mesenteric artery without significant stenosis or occlusion. No occlusion or significant stenosis. Renal arteries: No occlusion or significant stenosis. Right iliac arteries: No occlusion or significant stenosis. Left iliac arteries: No occlusion or significant stenosis. Liver: No mass. Gallbladder and bile ducts: Unremarkable. No calcified stones. No ductal dilation. Pancreas: Unremarkable. No mass. No ductal dilation. Spleen: Unremarkable. No splenomegaly. Adrenals: Unremarkable. No mass. Kidneys and ureters: Unremarkable. No solid mass. No hydronephrosis. Stomach and bowel: Multiple colonic diverticula. There is bowel wall thickening descending and rectosigmoid colon with adjacent mesenteric stranding. Appendix: No evidence of appendicitis. Intraperitoneal space: Unremarkable. No free air. No significant fluid collection. Lymph nodes: Unremarkable. No enlarged lymph nodes. Bladder: There is a small focus of air in the bladder, likely iatrogenic in nature. Reproductive: The uterus is not visualized, consistent with hysterectomy. Bones/joints: There are severe degenerative changes in the visualized spine. Lumbar levoscoliosis. Multilevel lumbar disc osteophyte complexes contribute to canal and bilateral neural foraminal narrowing. Soft tissues: Tiny fat containing umbilical hernia. Small fat containing right inguinal hernia. CT/CT angio abdomen pelvis [address] IMPRESSION: There is bowel wall thickening of the descending and rectosigmoid colon. In the setting of a low H&H, submucosal hemorrhage is a consideration. Differential includes nonspecific colitis as well. General surgery was consulted for further evaluation Patient reports that her pain mostly on the left side nothing seems to make it better except by laying down, is not being referred and being dull aching, associated with nausea and passage of blood-streaked mucousy stools and she denies any other complaints except for fever about a week ago and that subsided. Review of Systems General: Reports: 10 or more systems reviewed and unremarkable except in HPI and below Meds/Allergies Home Medications and Allergies Home Medications Medication Instructions Recorded Confirmed Last Taken Type allopurinol 100 mg tablet 100 mg PO DAILY 06/19/19 01/30/20 01/29/20 History bimatoprost 0.01 % eye drops 2 drop OPHTHALMIC (EYE) BEDTIME 08/07/19 01/30/20 01/29/20 History levothyroxine 137 mcg tablet 137 mcg PO DAILY #90 tab 01/05/20 01/30/20 01/30/20 Rx hydrocodone 10 mg-acetaminophen 1 tab PO TID PRN 30 Days #90 tab 01/27/20 01/30/20 01/30/20 07:30 Rx 325 mg tablet tizanidine 4 mg tablet 4 mg PO TID PRN #90 tab 01/27/20 01/30/20 Unknown Rx esomeprazole magnesium 40 mg 40 mg PO DAILY #90 cap 01/28/20 01/30/20 01/29/20 Rx capsule,delayed release furosemide 20 mg tablet 20 mg PO DAILY PRN #30 tab 01/28/20 01/30/20 Unknown Rx montelukast 10 mg tablet 10 mg PO DAILY #90 tab 01/28/20 01/30/20 01/29/20 Rx potassium chloride 10 mEq 10 meq PO DAILY #90 tab 01/28/20 01/30/20 01/30/20 Rx tablet,extended release(part/cryst) solifenacin 10 mg tablet 10 mg PO DAILY #90 tab 01/28/20 01/30/20 01/30/20 Rx ciprofloxacin HCl [Cipro] 500 mg PO BID #20 tab 01/30/20 Unknown Rx dicyclomine 20 mg PO QID 10 Days #40 tab 01/30/20 Unknown Rx loratadine 10 mg PO DAILY 01/30/20 01/30/20 01/30/20 History losartan 50 mg PO DAILY 01/30/20 01/30/20 Unknown History metronidazole [Flagyl] 500 mg PO TID 10 Days #30 tab 01/30/20 Unknown Rx promethazine 25 mg PO Q4H PRN #20 tab 01/30/20 Unknown Rx Allergies Allergy/AdvReac Type Severity Reaction Status Date / Time meloxicam [From Mobic] Allergy myalgia Verified 01/31/20 07:03 pneumococcal 7-valent Allergy ALGY-Joint Verified 01/31/20 07:03 conjugate to Pain Current Medications Current Medications Generic Name Dose Route Start Last Admin Trade Name Freq PRN Reason Stop Dose Admin Hydrocodone Bitart/Acetaminophen 1 tab 01/30/20 22:39 01/31/20 00:12 [place] 10-325 Mg PO 1 tab TID PRN Administration pain Bimatoprost 2 drop 01/30/20 22:39 01/30/20 23:42 [place] EYE-BOTH 2 drop BEDTIME MASSIEL Administration Sodium Chloride 1,000 mls @ 100 mls/hr 01/30/20 14:00 01/30/20 23:48 Sodium Chloride 0.9% IV 100 mls/hr .Q10H MASSIEL Administration Ciprofloxacin/Dextrose 400 mg in 200 mls @ 200 mls/hr 01/30/20 22:39 01/31/20 01:08 Cipro IV 200 mls/hr Q12H MASSIEL Administration Protocol Metronidazole 500 mg in 100 mls @ 100 mls/hr 01/30/20 22:39 01/31/20 04:33 Flagyl Iv IV 100 mls/hr Q6H MASSIEL Administration Protocol Ondansetron HCl 4 mg 01/30/20 22:39 01/31/20 00:20 Zofran IVP 4 mg Q6H PRN Administration vomiting, or N/V if npo PFSH Acute PFSH: Medical History (Updated 01/31/20 @ 07:06 by David Mejia MD) Abnormal mammogram Acute bilateral knee pain Acute neck pain Arthritis of knee, left Benign essential HTN Bilateral foot pain Bladder incontinence Constipation Diverticular disease Dyslipidemia Encounter for long-term use of opiate analgesic History of gout History of shingles Hx of diabetes mellitus HX: breast cancer Hypothyroidism Lumbar paraspinal muscle spasm Pain amplification syndrome Polyneuropathy, unspecified Restless legs syndrome Retrolisthesis of vertebrae Shigellosis, unspecified Spinal stenosis, lumbar region with neurogenic claudication Surgical History H/O colonoscopy H/O: hysterectomy History of lumpectomy of left breast Hx of arthroscopy of knee Hx of cataract surgery Family History Other Cancer Diabetes Denies family history of Anesthesia complication Bleeding disorder Social History Smoking and tobacco status: former smoker Second hand smoke exposure: No Alcohol intake: never Lives independently: Yes Marital status: Single Current occupational status: retired History of recent travel: No Vitals/I&O/Wt Last Vital Signs Temp 97.6 F 01/31/20 04:00 Pulse 68 01/31/20 04:00 Resp 17 01/31/20 04:00 BP 120/76 01/31/20 04:00 Pulse Ox 97 01/31/20 04:00 01/30/20 01/30/20 01/31/20 14:59 22:59 06:59 Intake Total 649.35 / 649.35 1121.667 / 1771.017 Output Total 400 / 400 Balance 649.35 / 649.35 721.667 / 1371.017 Weight last 48 hrs Weight 180 lb Physical Exam Narrative: EXAM NARRATIVE: Patient is conscious alert oriented X3 BMI 29 Head and neck examination PERRLA no masses no cervical lymphadenopathy no jaundice Cardiac examination audible S1-S2 no murmurs no gallops no arrhythmias Chest is clear bilateral,abscence of Rhonchi or wheezes,no surgical emphysema Abdomen left sided tenderess nondistended soft no organomegaly guarding or rigidity/no signs of peritonitis Extremities no cyanosis no clubbing no edema A&P Assessment and plan (1) Colitis: After history taking physical examination and reviewing the chart and images with my personal interpretation. Ciprofloxacin and Flagyl We will postpone the colonoscopy for 6 to 8 weeks out after this episode Continue clear liquid diet for now may advance to full liquid diet through the day depends on the clinical picture No surgical intervention at at this time, once patient tolerates well p.o. intake and has no fevers can be discharged home on oral antibiotics and follow- up with me at surgery office in 2 weeks or so. Thank you for consulting general surgery to participate taking care Ms. Smallwood Assurance and education All questions have been answered and all concerns have been addressed to patient's satisfaction. Status: Acute (2) Diverticular disease: Plan of care; Review the pathology with the patient Avoid constipation Avoid seeds nuts and popcorn High Fiber diet; As Fiber softens the stool and helps prevent constipation. It also can help decrease pressure in the colon and help prevent flare-ups of diverticulitis. High-fiber foods include: ? Beans and legumes ? Bran, whole wheat bread and whole grain cereals such as oatmeal ? Brown and wild rice ? Fruits such as apples, bananas and pears ? Vegetables such as broccoli, carrots, corn and squash ? Whole wheat pasta The target is to eat 25 to 30 grams of fiber daily. Drink at least 8 cups of fluid daily. Fluid will help soften your stool.Exercise also promotes bowel movement and helps prevent constipation. Weight management Assurance and education All questions have been answered Status: Acute Consult Attestations Medical Necessity Statement: Continue hospitalization to monitor patient's abdominal pain and response to treatment Time Spent in Patient Care: (>than 50% of time spent in counselling and/or direct pt care on unit) . 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
[2020-01-31] MEDS: allopurinol 100 mg Tablet PO (09:33)
[2020-01-31] MEDS: docusate sodium 100 mg Capsule PO ×2 (09:34→18:15)
[2020-01-31] MEDS: levothyroxine 25 mcg Tablet PO (09:34)
[2020-01-31] MEDS: pantoprazole DR 40 mg Tablet PO ×2 (09:34→18:15)
[2020-01-31] MEDS: levothyroxine 112 mcg Tablet PO (09:34)
[2020-01-31] MEDS: calcium polycarbophil 625 mg Tablet PO ×2 (09:49→18:15)
[2020-01-31] MEDS: polyethylene glycol 3350 Pkt 17 gm PO (09:50)
--- NOTE | 2020-01-31 10:19 | PC.CHAP ---
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 Relational/Emotional Strength [] Patient feels connected with others/family/visitors/staff [] Distress [] Loneliness/isolation [] Abandonment Spirituality of Patient [] Person of Brigida [] Attends Voodoo of their Brigida [] Believes in Prayer [] Reads Bible or Moravian materials [] There are Spiritual issues to be addressed Stogie Packer Interventions [] Prayer [] Active listening [] Non-anxious presence [] Spiritual/emotional support [] Crisis/trauma care [] Spiritual counseling [] Bereavement support [] Provided bereavement packet [] Provided Bible/devotional materials [] Provided toy/stuffed animal, coloring book to patient or family member [] Provided Communion [] Anointing/[place] [] Salvation [] Completed spiritual assessment [] Other: Impact on Illness or Injury [] Angry [] Fearful [] Anxious [] Often cries [] Exhaustion [] Unable to work [] Unable to attend hindu [] Unable to walk/stand [] Unable to read [] Unable to drive [] Unable to eat/drink [] Unable to sleep [] Unable to be with family [] Patient intubated [] Other: Summary Patient needs follow up visit. Time spent with patient 2 minutes.
--- NOTE | 2020-01-31 11:45 | P.PN_ITS ---
Subjective Subjective: Interval history: Nicolette reports she is only minimally better. She has had several bowel movements. She reports that with the bowel movements her abdomen does feel better. Still nauseated. Medications: Reviewed: Yes Vitals/I&O/Wt Last Vital Signs Temp 99.0 F 01/31/20 11:43 Pulse 76 01/31/20 11:43 Resp 18 01/31/20 11:43 BP 99/59 01/31/20 11:43 Pulse Ox 96 01/31/20 11:43 01/30/20 01/31/20 01/31/20 22:59 06:59 14:59 Intake Total 649.35 / 649.35 1221.667 / 1871.017 240 / 240 Output Total 400 / 400 Balance 649.35 / 649.35 821.667 / 1471.017 240 / 240 Weight last 48 hrs Weight 81.647 kg Physical Exam Narrative: EXAM NARRATIVE: General exam is a white female Cardiovascular regular rate and rhythm, no murmur Lungs clear Abdomen soft. No organomegaly. Tenderness below umbilicus bilaterally. No rebound. Positive bowel sounds. Extremities no cyanosis clubbing or edema Data : 01/31/20 03:56 01/31/20 03:56 A&P Assessment and plan (1) Abdominal pain: This could be secondary to her UTI, or secondary to her constipation. There is some concerns of colitis on CT so I suppose this is possible as well. She has quite a few diverticuli. Appreciate surgical consultation Continue Flagyl, Cipro Status: Acute (2) Colitis: Initiation of Cipro, Flagyl Clear liquids currently. As improves diet can be advanced. Status: Acute (3) Constipation: MiraLAX twice daily Colace twice daily Status: Acute (4) UTI (urinary tract infection): Cipro should cover urinary tract infection Urine culture Status: Acute (5) Anemia: Mild. Monitor. Status: Acute Additional A&P Information Mild dehydration/acute kidney injury. Continue fluids Elevated troponin. Patient did not have chest discomfort. However had significant palpitations after receiving contrast for CT scan and went into SVT, requiring adenosine. This explains her elevated troponin with equivocal delta. Telemetry. Chronic pain, on chronic narcotics History of hypertension. Continue home medicines Hypothyroidism continue Synthroid GERD. Protonix twice daily Gout Past history of diabetes, now diet controlled Full code Low risk for DVT. No prophylaxis currently. Not significantly better. Continue clear liquid diet, IV antibiotics secondary to colitis not significantly improved will change to regular admission. Attestations Medical Necessity Statement*: Needs continued hospital stay for IV antibiotics secondary to colitis. 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
[2020-01-31] MEDS: sodium chloride 0.9% 1,000 ML 100 ML IV (14:19)
[2020-01-31] MEDS: scopolamine 1.5 Patch 1 PATCH TRANSDERMA (19:07)
[2020-02-01] VITALS (7 sets, daily range): BP systolic 102–126; BP diastolic 64–80; PULSE 58–74; RESP 16–18; TEMP 36.2–37.2; O2SAT 93–96
[2020-02-01] MEDS: ciprofloxacin 400 MG/200 ML PREMIX 200 MG IV ×2 (01:37→12:50)
[2020-02-01] MEDS: metroNIDAZOLE IV 500 MG/100 ML PREMIX 100 MG IV ×3 (03:11→14:39)
[2020-02-01] MEDS: ondansetron 2 mg/ML SDV 2 mL 4 MG IVP ×3 (03:14→19:37)
[2020-02-01] MEDS: sodium chloride 0.9% 1,000 ML 100 ML IV ×2 (03:14→19:43)
[2020-02-01 03:33] LABS: Basophils # 0.1 10^3/uL (0.0-0.1); Basophils % 1.1 %; Eosinophils # 0.4 10^3/uL (0.0-0.8); Eosinophils % 5.8 %; Hematocrit 29.4 % (37.0-47.0); Hemoglobin 9.2 g/dL (11.5-15.3); Lymphocytes # 0.6 10^3/uL (0.8-4.8); Lymphocytes % 9.7 %; Mean Corpuscular HGB Conc 31.3 g/dL (30.0-36.0); Mean Corpuscular Hemoglobin 24.8 pg (28.0-34.0); Mean Corpuscular Volume 79.2 fL (81-99); Mean Platelet Volume 8.7 fL (7.4-10.4); Monocytes # 0.9 10^3/uL (0.2-0.9); Monocytes % 13.9 %; Neutrophils # 4.33 10^3/uL (1.8-7.7); Neutrophils % 69.2 %; Nucleated Red Blood Cells % 0 %; Platelet Count 381 10^3/cmm (130-400); Red Blood Count 3.71 10^6/uL (4.1-5.3); White Blood Count 6.3 10^3/uL (4.0-10.0)
[2020-02-01 04:03] LABS: Anion Gap 11.4 (5-19); Blood Urea Nitrogen 5 mg/dL (8-23); Calcium 8.3 mg/dL (8.5-10.5); Carbon Dioxide 22 mmol/L (22-29); Chloride 105 mmol/L (98-107); Creatinine Clr Calc Pharmacy 71.4967; Glucose 113 mg/dL (65-115); Osmolality Calculated 278 mOsm/kg (285-295); Potassium 3.4 mmol/L (3.5-5.1); Sodium 135 mmol/L (136-145)
--- NOTE | 2020-02-01 05:44 | P.PN_ITS ---
Subjective Subjective: Interval history: Patient complains of nausea and required IV antinausea medication in addition to scopolamine patch. Patient reports loose stools and her abdominal pain is less she seems to feel better with that regard Vitals/I&O/Wt Last Vital Signs Temp 97.2 F L 02/01/20 04:00 Pulse 69 02/01/20 04:00 Resp 16 02/01/20 04:00 BP 102/66 02/01/20 04:00 Pulse Ox 95 02/01/20 04:00 01/31/20 01/31/20 02/01/20 14:59 22:59 06:59 Intake Total 1580 / 1580 320 / 1900 1100 / 3000 Balance 1580 / 1580 320 / 1900 1100 / 3000 Weight last 48 hrs Weight 180 lb Physical Exam Narrative: EXAM NARRATIVE: Patient is conscious alert oriented X3 BMI 29 Head and neck examination PERRLA no masses no cervical lymphadenopathy no jaundice Abdomen left sided tenderess less in comparison to yesterday examination nondistended soft no organomegaly guarding or rigidity/no signs of peritonitis Data : 02/01/20 03:10 02/01/20 03:10 A&P Assessment and plan (1) Colitis: On morning rounds 5:40 AM patient was on bedside commode will come later through the day for rounding. I came back at 6:20 AM to reevaluate the patient and overall from surgical standpoint of view there is no indication for surgical intervention at this point. I do believe that the patient chronic constipation related to her c hronic narcotic therapy for her musculoskeletal chronic pains will continue because an issue for the patient unless she is weaned off per pain management team. We will plan to postpone the colonoscopy due to the bout of colitis for at least 6 to 8 weeks from such an episode. Emphasis on PPI therapy to be continued as an outpatient Patient can be advanced to full liquid diet We will continue to follow on the patient's progress as an outpatient setting I would recommend to continue Cipro floxacillin and Flagyl for 10 days after discharge. Thank you for consulting general surgery to participate taking care of Ms. Smallwood Status: Acute (2) Diverticular disease: Plan of care; Review the pathology with the patient Avoid constipation Avoid seeds nuts and popcorn High Fiber diet; As Fiber softens the stool and helps prevent constipation. It also can help decrease pressure in the colon and help prevent flare-ups of diverticulitis. High-fiber foods include: ? Beans and legumes ? Bran, whole wheat bread and whole grain cereals such as oatmeal ? Brown and wild rice ? Fruits such as apples, bananas and pears ? Vegetables such as broccoli, carrots, corn and squash ? Whole wheat pasta The target is to eat 25 to 30 grams of fiber daily. Drink at least 8 cups of fluid daily. Fluid will help soften your stool.Exercise also promotes bowel movement and helps prevent constipation. Weight management Assurance and education All questions have been answered Status: Acute Attestations Medical Necessity Statement*: Will require ongoing hospitalization until resolution of nausea and tolerance of p.o. intake Time Spent in Patient Care: (>than 50% of time spent in counselling and/or direct pt care on unit) . 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
[2020-02-01] MEDS: levothyroxine 25 mcg Tablet PO (08:19)
[2020-02-01] MEDS: levothyroxine 112 mcg Tablet PO (08:19)
[2020-02-01] MEDS: pantoprazole DR 40 mg Tablet PO ×2 (08:20→17:44)
[2020-02-01] MEDS: allopurinol 100 mg Tablet PO (08:20)
[2020-02-01] MEDS: docusate sodium 100 mg Capsule PO ×2 (08:20→17:44)
--- NOTE | 2020-02-01 09:00 | PC.NURSE ---
Notified Dr Pfeiffer, patient refused Miralax and Fiber-lax and held Losartan because patient's blood pressure is 103/64.
--- NOTE | 2020-02-01 10:46 | PC.CHAP ---
Pastoral Care Encounter/Spiritual Assessment Type of Contact [] Declined market research analyst visit [] Patient/Family/Request visit [] Outpatient visit [] Follow-up visit [] Physician referral [] Code/Alert [] Routine visit [] Staff referral [] Actively dying [x] Patient sleeping [] Family support [] [] Out of room [] Palliative care [] [] Receiving care in room [] Pre-surgical visit [] Trauma [] Long length of stay [] ICU visit [] Other: Relational/Emotional Strength [] Patient feels connected with others/family/visitors/staff [] Distress [] Loneliness/isolation [] Abandonment Spirituality of Patient [] Person of Brigida [] Attends Mandaeism of their Brigida [] Believes in Prayer [] Reads Bible or Shinto materials [] There are Spiritual issues to be addressed Entry Processor Interventions [] Prayer [] Active listening [] Non-anxious presence [] Spiritual/emotional support [] Crisis/trauma care [] Spiritual counseling [] Bereavement support [] Provided bereavement packet [] Provided Bible/devotional materials [] Provided toy/stuffed animal, coloring book to patient or family member [] Provided Communion [] Anointing/[place] [] Salvation [] Completed spiritual assessment [] Other: Impact on Illness or Injury [] Angry [] Fearful [] Anxious [] Often cries [] Exhaustion [] Unable to work [] Unable to attend holiness [] Unable to walk/stand [] Unable to read [] Unable to drive [] Unable to eat/drink [] Unable to sleep [] Unable to be with family [] Patient intubated [] Other: Summary Patient was sleeping at the time of the market research analyst visit. Referred patient to the next market research analyst for a follow-up visit. Time spent with patient 3 minutes
[2020-02-01] MEDS: HYDROcodone-acetaminophen 10-325 mg Tablet 1 TAB PO (10:57)
--- NOTE | 2020-02-01 15:34 | PC.NURSE ---
rcvd verbal order from Dr Pfeiffer for GI Soft diet. senior copywriter entered diet change
--- NOTE | 2020-02-01 16:20 | PM.PN ---
Subjective Subjective: Interval history: The patient reports feeling a little better today. However she reports nausea and one episode of vomiting. She suspects that it coincided with metronidazole administration. She denies any abdominal pain. Had a bowel movement without blood in the stool. Denies fevers or chills. No chest pain, shortness of breath, cough, palpitations. Medications: Reviewed: Yes Medication Review Details: Generic Name Dose Route Start Last Admin Trade Name Freq PRN Reason Stop Dose Admin Allopurinol 100 mg 01/31/20 09:00 02/01/20 08:20 Zyloprim PO 100 mg DAILY MASSIEL Administration Bimatoprost 2 drop 01/30/20 22:39 01/31/20 20:07 Lumigan EYE-BOTH 2 drop BEDTIME MASSIEL Administration Calcium Polycarbop hil 625 mg 01/31/20 09:00 02/01/20 08:20 Fiber-Lax PO Not Given BID MASSIEL Docusate Sodium 100 mg 01/31/20 09:00 02/01/20 08:20 Colace PO 100 mg BID MASSIEL Administration Sodium Chloride 1,000 mls @ 70 ml s/hr 01/30/20 14:00 02/01/20 03:14 Sodium Chloride 0.9% IV 100 mls/hr .[id number] MASSIEL Administration Levothyroxine Sodi um 25 mcg 01/31/20 09:00 02/01/20 08:19 Synthroid PO 25 mcg DAILY MASSIEL Administration Levothyroxine Sodi um 112 mcg 01/31/20 09:00 02/01/20 08:19 Synthroid PO 112 mcg DAILY MASSIEL Administration Losartan Potassium 50 mg 01/31/20 09:00 02/01/20 08:20 Cozaar PO Not Given DAILY MASSIEL Ondansetron HCl 4 mg 01/30/20 22:39 02/01/20 09:16 Zofran IVP 4 mg Q6H PRN Administration vomiting, or N/V if npo Pantoprazole Sodiu m 40 mg 01/31/20 09:00 02/01/20 08:20 Protonix PO 40 mg BID MASSIEL Administration Polyethylene Glyco l 17 gm 01/31/20 09:00 02/01/20 08:20 Miralax PO Not Given BID MASSIEL Vitals/I&O/Wt Last Vital Signs Temp 98.4 F 02/01/20 15:20 Pulse 58 L 02/01/20 15:20 Resp 18 02/01/20 15:20 BP 126/78 02/01/20 15:20 Pulse Ox 96 02/01/20 15:20 02/01/20 02/01/20 02/01/20 06:59 14:59 22:59 Intake Total 1400 / 3300 400 / 400 Output Total 2500 / 2500 Balance -1100 / 800 400 / 400 Physical Exam Narrative: EXAM NARRATIVE: Awake alert oriented. No acute distress. Mood and affect are appropriate. Skin is warm and dry. Moist mucous membranes. Eyes PERRLA,EOMintact. Neck supple. No JVD Lungs clear bilaterally. No respiratory distress Heart S1, S2, regular Abdomen is soft, nontender, bowel sounds are present. No guarding. No rebound. Normal speech. Extremities no cyanosis, calf tenderness, edema. Moves all extremities. Data : 02/01/20 03:10 02/01/20 03:10 Micro: Microbiology 01/30/20 16:08 Urine Culture - Preliminary Urine,Clean Catch Gram Negative Rods A&P Assessment and plan (1) Abdominal pain: This could be secondary to her UTI, or secondary to her constipation. There is some concerns of colitis on CT so I suppose this is possible as well. She has quite a few diverticuli. Appreciate surgical consultation Continue Flagyl, Cipro Status: Acute (2) Colitis: Initiation of Cipro, Flagyl Clear liquids currently. As improves diet can be advanced. Status: Acute (3) Constipation: MiraLAX twice daily Colace twice daily Status: Acute (4) UTI (urinary tract infection): Cipro should cover urinary tract infection Urine culture Status: Acute (5) Anemia: Mild. Monitor. Status: Acute Additional A&P Information Mild dehydration/acute kidney injury. Continue fluids Elevated troponin. Patient did not have chest discomfort. However had significant palpitations after receiving contrast for CT scan and went into SVT, requiring adenosine. This explains her elevated troponin with equivocal delta. Telemetry. Chronic pain, on chronic narcotics History of hypertension. Continue home medicines Hypothyroidism continue Synthroid GERD. Protonix twice daily Gout Past history of diabetes, now diet controlled Full code Low risk for DVT. No prophylaxis currently. Not significantly better. Continue clear liquid diet, IV antibiotics secondary to colitis not significantly improved will change to regular admission. [place] Colitis. Overall she is doing better. However developed nausea with Flagyl. We will stop Cipro and Flagyl and start her on Zosyn. We will see how she does with diet. Will use as needed nausea medications. Will consider possibly discharging her home tomorrow. Dehydration. Will decrease IV fluid rate. We will continue monitoring her electrolytes and kidney function. SVT. Resolved. Will arrange outpatient cardiology referral. Elevated cardiac enzymes on presentation. No chest pain. Most likely was related to SVT. We will discharge her on aspirin. DVT prophylaxis. Teds and SCDs. Hyponatremia. Probably secondary to dehydration. Monitor. Hypokalemia. Replace and monitor. Anemia. Monitor. Stable. Might need outpatient follow-up. Discussed with the patient. She verbalized understanding and agreement. Discussed with Dr. Vázquez. Discussed with multidisciplinary team. Attestations Medical Necessity Statement*: Hopefully home tomorrow. 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
[2020-02-01] MEDS: potassium chloride ER 10 mEq Tablet 20 MEQ PO (17:44)
--- NOTE | 2020-02-01 17:56 | PC.NURSE ---
Patient requesting something else for nausea and stated Tramadol makes me sick notified Dr Pfeiffer. Per Dr Pfeiffer, order Phenergan 25mg PO Q6H PRN for Nausea, Stop Tramadol, Order [place] 5mg PO Q6H PRN. Wholesale Account Manager put orders in as requested.
[2020-02-01] MEDS: HYDROcodone-acetaminophen 5-325 mg Tablet 1 TAB PO (19:37)
[2020-02-01] MEDS: promethazine 25 mg Tablet PO (19:37)
[2020-02-01] MEDS: piperacillin-tazobactam 3.375 GM in sodium chloride 0.9% (plus) 50 ML IV (22:05)
[2020-02-02] VITALS (9 sets, daily range): BP systolic 107–135; BP diastolic 69–84; PULSE 59–86; RESP 16–18; TEMP 36.4–37.3; O2SAT 90–96
[2020-02-02 02:52] LABS: Basophils # 0.1 10^3/uL (0.0-0.1); Basophils % 0.9 %; Eosinophils # 0.3 10^3/uL (0.0-0.8); Eosinophils % 4.6 %; Hematocrit 31.5 % (37.0-47.0); Hemoglobin 9.7 g/dL (11.5-15.3); Lymphocytes # 0.7 10^3/uL (0.8-4.8); Lymphocytes % 10.9 %; Mean Corpuscular HGB Conc 30.8 g/dL (30.0-36.0); Mean Corpuscular Hemoglobin 25.1 pg (28.0-34.0); Mean Corpuscular Volume 81.6 fL (81-99); Mean Platelet Volume 8.6 fL (7.4-10.4); Monocytes # 0.8 10^3/uL (0.2-0.9); Monocytes % 12.3 %; Neutrophils # 4.49 10^3/uL (1.8-7.7); Neutrophils % 70.8 %; Nucleated Red Blood Cells % 0 %; Platelet Count 421 10^3/cmm (130-400); Red Blood Count 3.86 10^6/uL (4.1-5.3); Red Cell Distribution Width 16.1 % (12.1-15.1); White Blood Count 6.3 10^3/uL (4.0-10.0)
[2020-02-02 03:10] LABS: Albumin Level 2.5 g/dL (3.5-5.2); Anion Gap 13.4 (5-19); Blood Urea Nitrogen 4 mg/dL (8-23); Calcium 8.4 mg/dL (8.5-10.5); Carbon Dioxide 23 mmol/L (22-29); Chloride 105 mmol/L (98-107); Creatinine Clr Calc Pharmacy 71.4967; Glomerular Filtration Rate 71.1 mL/min (90-130); Glucose 104 mg/dL (65-115); Phosphorus 2.8 mg/dL (2.5-4.5); Potassium 3.4 mmol/L (3.5-5.1); Sodium 138 mmol/L (136-145)
[2020-02-02] MEDS: piperacillin-tazobactam 3.375 GM in sodium chloride 0.9% (plus) 50 ML IV (05:42)
[2020-02-02] MEDS: pantoprazole DR 40 mg Tablet PO ×2 (08:18→16:48)
[2020-02-02] MEDS: docusate sodium 100 mg Capsule PO ×2 (08:18→16:48)
[2020-02-02] MEDS: losartan 50 mg Tablet PO (08:18)
[2020-02-02] MEDS: promethazine 25 mg Tablet PO ×2 (08:19→16:48)
[2020-02-02] MEDS: levothyroxine 112 mcg Tablet PO (08:19)
[2020-02-02] MEDS: calcium polycarbophil 625 mg Tablet PO ×2 (08:19→16:48)
[2020-02-02] MEDS: levothyroxine 25 mcg Tablet PO (08:19)
[2020-02-02] MEDS: allopurinol 100 mg Tablet PO (08:19)
--- NOTE | 2020-02-02 08:45 | PC.NURSE ---
Patient complains of nausea throughout the night. technical writer and editor gave Phenergan this morning. Patient said her diarrhea has slowed down by still there. Patient refused Miralax this morning. Patient stated I'm eating my breakfast slow so the nausea don't get worse. Patient resting in bed, call light within reach.
[2020-02-02] MEDS: sodium chloride 0.9% 1,000 ML 100 ML IV (09:36)
[2020-02-02] MEDS: ondansetron 2 mg/ML SDV 2 mL 4 MG IVP (11:51)
[2020-02-02] MEDS: HYDROcodone-acetaminophen 5-325 mg Tablet 1 TAB PO ×2 (11:52→20:45)
[2020-02-02] MEDS: metroNIDAZOLE IV 500 MG/100 ML PREMIX 100 MG IV ×2 (13:53→20:45)
[2020-02-02] MEDS: potassium chloride premix 40 MEQ/100 ML PREMIX 25 MEQ IV (13:53)
[2020-02-02] MEDS: cefTRIAXone 1,000 MG in sodium chloride 0.9% (plus) 50 ML 100 MG IV (14:57)
[2020-02-02] MEDS: lactated ringers 1,000 ML 75 ML IV (14:58)
--- NOTE | 2020-02-02 15:56 | P.PN_ITS ---
Subjective Subjective: Interval history: The patient feels a little better. However her nausea still persists despite the fact that her antibiotics were changed. No vomiting. She is tolerating diet okay. Diarrhea. No rectal blood. No fevers or chills. No significant abdominal pain Medications: Reviewed: Yes Medication Review Details: Generic Name Dose Route Start Last Admin Trade Name Freq PRN Reason Stop Dose Admin Hydrocodone Bitart /Acetaminophen 1 tab 02/01/20 17:50 02/02/20 11:52 [place] 5-325 Mg PO 1 tab Q6H PRN Administration MODERATE PAIN Allopurinol 100 mg 01/31/20 09:00 02/02/20 08:19 Zyloprim PO 100 mg DAILY MASSIEL Administration Bimatoprost 2 drop 01/30/20 22:39 02/01/20 19:38 Lumigan EYE-BOTH 2 drop BEDTIME MASSIEL Administration Calcium Polycarbop hil 625 mg 01/31/20 09:00 02/02/20 08:19 Fiber-Lax PO 625 mg BID MASSIEL Administration Docusate Sodium 100 mg 01/31/20 09:00 02/02/20 08:18 Colace PO 100 mg BID MASSIEL Administration Potassium Chloride 40 meq in 100 mls @ 25 mls/hr 02/02/20 12:00 02/02/20 13:53 K-Yvon IV 02/02/20 15:59 25 mls/hr ONCE ONE Administration Ceftriaxone Sodium 1,000 mg/ 50 mls @ 100 mls/ hr 02/02/20 12:15 02/02/20 14:57 Sodium Chloride IV 100 mls/hr Q24H MASSIEL Administration Protocol Metronidazole 500 mg in 100 mls @ 100 mls/hr 02/02/20 12:15 02/02/20 13:53 Flagyl Iv IV 100 mls/hr Q8H MASSIEL Administration Protocol Lactated Ringer's 1,000 mls @ 75 ml s/hr 02/02/20 12:45 02/02/20 14:58 Lactated Ringers IV 75 mls/hr .[id number] MASSIEL Administration Levothyroxine Sodi um 25 mcg 01/31/20 09:00 02/02/20 08:19 Synthroid PO 25 mcg DAILY MASSIEL Administration Levothyroxine Sodi um 112 mcg 01/31/20 09:00 02/02/20 08:19 Synthroid PO 112 mcg DAILY MASSIEL Administration Losartan Potassium 50 mg 01/31/20 09:00 02/02/20 08:18 Cozaar PO 50 mg DAILY MASSIEL Administration Ondansetron HCl 4 mg 01/30/20 22:39 02/02/20 11:51 Zofran IVP 4 mg Q6H PRN Administration vomiting, or N/V if npo Pantoprazole Sodiu m 40 mg 01/31/20 09:00 02/02/20 08:18 Protonix PO 40 mg BID MASSIEL Administration Polyethylene Glyco l 17 gm 01/31/20 09:00 02/02/20 08:17 Miralax PO Not Given BID MASSIEL Promethazine HCl 25 mg 02/01/20 17:53 02/02/20 08:19 Phenergan PO 25 mg Q6H PRN Administration NAUSEA Vitals/I&O/Wt Last Vital Signs Temp 98.5 F 02/02/20 11:25 Pulse 59 L 02/02/20 11:25 Resp 16 02/02/20 11:25 BP 132/81 02/02/20 11:25 Pulse Ox 94 02/02/20 11:25 02/02/20 02/02/20 02/02/20 06:59 14:59 22:59 Intake Total 1050 / 2970 Output Total 400 / 400 Balance 1050 / 2770 -400 / -400 Physical Exam Narrative: EXAM NARRATIVE: Awake alert oriented. No acute distress. Mood and affect are appropriate. Skin is warm and dry. Moist mucous membranes. Eyes PERRLA,EOMintact. Neck supple. No JVD Lungs clear bilaterally. No respiratory distress Heart S1, S2, regular Abdomen is soft, nontender, bowel sounds are present. No guarding. No rebound. Normal speech. Extremities no cyanosis, calf tenderness, edema. Moves all extremities. Data : 02/02/20 02:40 02/02/20 02:40 Micro: Microbiology 01/30/20 16:08 Urine Culture - Final Urine,Clean Catch Escherichia coli 02/01/20 01:30 C.difficile Toxin B Gene (PCR) - Final Stool Routine Collection 01/30/20 23:35 Stool Lactoferrin - Final Stool - Stool Aspirate A&P Assessment and plan (1) Abdominal pain: This could be secondary to her UTI, or secondary to her constipation. There is some concerns of colitis on CT so I suppose this is possible as well. She has quite a few diverticuli. Appreciate surgical consultation Continue Flagyl, Cipro Status: Acute (2) Colitis: Initiation of Cipro, Flagyl Clear liquids currently. As improves diet can be advanced. Status: Acute (3) Constipation: MiraLAX twice daily Colace twice daily Status: Acute (4) UTI (urinary tract infection): Cipro should cover urinary tract infection Urine culture Status: Acute (5) Anemia: Mild. Monitor. Status: Acute Additional A&P Information Mild dehydration/acute kidney injury. Continue fluids Elevated troponin. Patient did not have chest discomfort. However had significant palpitations after receiving contrast for CT scan and went into SVT, requiring adenosine. This explains her elevated troponin with equivocal delta. Telemetry. Chronic pain, on chronic narcotics History of hypertension. Continue home medicines Hypothyroidism continue Synthroid GERD. Protonix twice daily Gout Past history of diabetes, now diet controlled Full code Low risk for DVT. No prophylaxis currently. Not significantly better. Continue clear liquid diet, IV antibiotics secondary to colitis not significantly improved will change to regular admission. [place] Colitis. Overall she is improving. Nausea has not changed significantly after we stopped Flagyl. This makes me think that Flagyl was not the cause of her nausea. I will go ahead and stop her Zosyn and start her on Rocephin and Flagyl. Rocephin would be better coverage for her urinary tract infection based on the sensitivities. UTI. Rocephin. Dehydration. Since still having diarrhea I will continue IV fluids at decreased rate. We will continue monitoring electrolytes and kidney function. SVT. Resolved. Will arrange outpatient cardiology referral. Elevated cardiac enzymes on presentation. No chest pain. Most likely was related to SVT. We will discharge her on aspirin. DVT prophylaxis. Teds and SCDs. Hyponatremia. Probably secondary to dehydration. Monitor. Hypokalemia. Replace and monitor. Anemia. Monitor. Stable. Might need outpatient follow-up. Discussed with the patient. She verbalized understanding and agreement. Attestations Medical Necessity Statement*: Plan of care requires inpatient hospitalization. 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
[2020-02-03 02:54] LABS: Basophils # 0.1 10^3/uL (0.0-0.1); Basophils % 1.3 %; Eosinophils # 0.3 10^3/uL (0.0-0.8); Eosinophils % 6.2 %; Hematocrit 30.7 % (37.0-47.0); Hemoglobin 9.8 g/dL (11.5-15.3); Mean Corpuscular HGB Conc 31.9 g/dL (30.0-36.0); Mean Corpuscular Hemoglobin 25.1 pg (28.0-34.0); Mean Corpuscular Volume 78.7 fL (81-99); Mean Platelet Volume 8.6 fL (7.4-10.4); Monocytes # 0.7 10^3/uL (0.2-0.9); Neutrophils # 3.24 10^3/uL (1.8-7.7); Neutrophils % 59.2 %; Nucleated Red Blood Cells % 0 %; Platelet Count 417 10^3/cmm (130-400); Red Cell Distribution Width 16.1 % (12.1-15.1); White Blood Count 5.5 10^3/uL (4.0-10.0)
[2020-02-03 03:15] LABS: Albumin Level 2.7 g/dL (3.5-5.2); Anion Gap 10.9 (5-19); Blood Urea Nitrogen 5 mg/dL (8-23); Calcium 7.7 mg/dL (8.5-10.5); Carbon Dioxide 25 mmol/L (22-29); Chloride 107 mmol/L (98-107); Creatinine Clr Calc Pharmacy 71.4967; Glucose 92 mg/dL (65-115); Phosphorus 2.5 mg/dL (2.5-4.5); Potassium 3.9 mmol/L (3.5-5.1); Sodium 139 mmol/L (136-145)
[2020-02-03 03:41] VITALS: BP 119/73; PULSE 59; RESP 18; TEMP 36.8; O2SAT 96
[2020-02-03] MEDS: lactated ringers 1,000 ML 75 ML IV (04:12)
[2020-02-03] MEDS: metroNIDAZOLE IV 500 MG/100 ML PREMIX 100 MG IV (04:12)
[2020-02-03 07:52] VITALS: BP 129/78; PULSE 54; RESP 18; TEMP 37.1; O2SAT 54
[2020-02-03] MEDS: levothyroxine 112 mcg Tablet PO (08:50)
[2020-02-03] MEDS: pantoprazole DR 40 mg Tablet PO (08:50)
[2020-02-03 08:51] VITALS: BP 129/78
[2020-02-03] MEDS: calcium polycarbophil 625 mg Tablet PO (08:51)
[2020-02-03] MEDS: losartan 50 mg Tablet PO (08:51)
[2020-02-03] MEDS: levothyroxine 25 mcg Tablet PO (08:52)
[2020-02-03] MEDS: allopurinol 100 mg Tablet PO (08:52)
[2020-02-03] MEDS: docusate sodium 100 mg Capsule PO (08:52)
[2020-02-03] MEDS: ondansetron 2 mg/ML SDV 2 mL 4 MG IVP (08:58)
[2020-02-03] MEDS: polyethylene glycol 3350 Pkt 17 gm PO (09:00)
[2020-02-03] MEDS: tizanidine 4 mg Tablet PO (09:15)
[2020-02-03 09:18] VITALS: PULSE 75; O2SAT 97
--- NOTE | 2020-02-03 09:22 | PC.SOCIAL ---
IMM Update Pg. 2 of IMM given and explained to patient who verbalized understanding. Original placed in chart.
[2020-02-03 10:45] VITALS: BP 107/70; PULSE 63; RESP 18; TEMP 37.2; O2SAT 91
[2020-02-03] MEDS: cefTRIAXone 1,000 MG in sodium chloride 0.9% (plus) 50 ML 100 MG IV (11:09)
--- NOTE | 2020-02-03 11:34 | P.DS_ITS ---
Discharge Providers Date of Admission: 01/31/20 11:50 Date of Discharge: February 03, 2020 Attending Provider at Admission: Willie Krause MD Attending Provider at Discharge: Edilson Pfeiffer Primary Care Provider: Adela Phillips DO Diagnoses at Discharge Discharge Diagnosis (1) Abdominal pain: Status: Acute (2) Colitis: Status: Acute (3) Constipation: Status: Acute (4) UTI (urinary tract infection): Status: Acute (5) Anemia: Status: Acute Reason for Visit Reason for Visit: abd pain/n Hospital Course Discharge Summary: this is a 69-year-old female who presented to emergency room with complaints of abdominal discomfort, diarrhea, nausea and vomiting. She was diagnosed with colitis. Failed outpatient treatments. Currently she is feeling better. Symptoms have significantly improved. Nausea and vomiting have resolved. no rectal blood. There is no fever or chills. She is eager to go home. discharge diagnoses and problem list Colitis. Overall improved. she is being discharged on Omnicef and metronidazole for additional 10 days. I chose Omnicef due to presence of UTI and the fact that urine Escherichia coli is not sensitive to Cipro.she will see Dr. Vázquez for follow-up. She will need outpatient colonoscopy for diagnosis. UTI. as above. Symptoms have resolved. Dehydration. due to diarrhea. Dehydration is resolved. She is eating and drinking. Able to maintain oral hydration. SVT. Resolved. she is being provided with outpatient referral to see Dr. Washington. Elevated cardiac enzymes on presentation. No chest pain. Most likely was related to SVT. We will discharge her on aspirin. Hyponatremia. resolved. Hypokalemia. replaced. Anemia. Stable. Outpatient monitoring by the primary care physician. Discussed with the patient. She verbalized understanding and agreement. Physical Exam Narrative: EXAM NARRATIVE: vital signs are reviewed and are stable. A febrile. Awake alert oriented. No acute distress. Mood and affect are appropriate. Skin is warm and dry. Moist mucous membranes. Eyes PERRLA,EOMintact. Neck supple. No JVD Lungs clear bilaterally. No respiratory distress Heart S1, S2, regular Abdomen is soft, nontender, bowel sounds are present. No guarding. No rebound. Normal speech. Extremities no cyanosis, calf tenderness, edema. Moves all extremities. Discharge Data Data Completed and Pending: Completed Studies During Hospitalization Category Date Time Status CT angio abdomen pelvis [id number] Stat Cat Scan 01/30/20 13:55 Completed Pending at discharge Category Date Time Status Enteric Bacterial Panel by PCR Rout ine Lab 01/30/20 23:35 Results Enteric Parasite Panel by PCR Routi ne Lab 01/30/20 23:35 Results Labs from last 24 hours 02/03/20 02/03/20 02/03/20 02:45 02:45 02:45 WBC 5.5 RBC 3.90 L Hgb 9.8 L Hct 30.7 L MCV 78.7 L MCH 25.1 L MCHC 31.9 RDW 16.1 H Plt Count 417 H MPV 8.6 Neut % (Auto) 59.2 Lymph % (Auto) 19.0 [place] % (Auto) 13.0 Eos % (Auto) 6.2 Baso % (Auto) 1.3 Neut # (Auto) 3.24 Lymph # (Auto) 1.0 [place] # (Auto) 0.7 Eos # (Auto) 0.3 Baso # (Auto) 0.1 Nucleated RBC % (a uto) 0 Nucleated RBCs # 0.0 Sodium 139 Potassium 3.9 Chloride 107 Carbon Dioxide 25 Anion Gap 10.9 BUN 5 L Creatinine 0.7 GFR Calculation 83.0 L Glucose 92 Calcium 7.7 L Phosphorus 2.5 Magnesium 2.0 Albumin 2.7 L Vitals: Last Vital Signs Temp 98.9 F 02/03/20 10:45 Pulse 63 02/03/20 10:45 Resp 18 02/03/20 10:45 BP 107/70 02/03/20 10:45 Pulse Ox 91 02/03/20 10:45 Discharge Plan Discharge Patient Disposition: Home Condition: Stable Prescriptions: New Flagyl 500 mg tablet 500 mg PO TID 10 Days Qty: 30 RF: 0 Fiber-Lax 625 mg Tablet 625 mg PO BID 30 Days Qty: 60 RF: 0 docusate sodium 100 mg Capsule 100 mg PO BID 10 Days Qty: 20 RF: 0 cefdinir 300 mg capsule 300 mg PO BID 10 Days Qty: 20 RF: 0 Zofran 4 mg tablet 4 mg PO Q6H PRN (Reason: nausea and vomiting) Qty: 20 RF: 0 Continued allopurinol 100 mg tablet 100 mg PO DAILY RF: 0 levothyroxine 137 mcg tablet 137 mcg PO DAILY Qty: 90 RF: 3 Lumigan 0.01 % drops 2 drop ophthalmic (eye) BEDTIME RF: 0 tizanidine 4 mg tablet 4 mg PO TID PRN (Reason: muscle spasticity) Qty: 90 RF: 0 hydrocodone-acetaminophen 10-325 mg tablet 1 tab PO TID PRN (Reason: pain) 30 Days Qty: 90 RF: 0 montelukast 10 mg tablet 10 mg PO DAILY Qty: 90 RF: 1 potassium chloride 10 mEq tablet,ER particles/crystals 10 meq PO DAILY Qty: 90 RF: 1 solifenacin [Vesicare] 10 mg tablet 10 mg PO DAILY Qty: 90 RF: 1 esomeprazole magnesium [Nexium] 40 mg capsule,delayed release(DR/EC) 40 mg PO DAILY Qty: 90 RF: 1 furosemide [Lasix] 20 mg tablet 20 mg PO DAILY PRN (Reason: edema) Qty: 30 RF: 0 losartan 50 mg tablet 50 mg PO DAILY RF: 0 loratadine 10 mg capsule 10 mg PO DAILY RF: 0 Discharge Orders: Discharge Order (Routine); Ordered 02/03/20 Ordered By: Edilson Pfeiffer Other Ambulatory Orders: Basic Metabolic Panel (Routine) Timeframe: 1 Week Facility: [facility] - Location: Lab - Main Lab Ordered By: Edilson Pfeiffer Complete Blood Count w/Auto (Routine) Timeframe: 1 Week Location: Determined by Patient Ordered By: Edilsno Pfeiffer Referrals: David Mejia MD [Physician] - 6 Weeks (for colonoscopy) Dipak Washington MD [Physician] - 1 week (for evaluation of episode of SVT) Adela Phillips DO [Primary Care Provider] - 1-3 days ([facility] should call you Saturday with an appointment. If you do not hear from them please call [phone]. ) Patient Instructions: Infectious Colitis (ED) Activity Restrictions/Additional Instructions: Please return to the ER immediately for any of the signs or symptoms listed on your discharge instruction sheets, worsening/changing of your symptoms, you are not getting better as quickly as expected, or for ANY other cause or concerns. Stop your tizanidine while you are taking the ciprofloxacin for your bowel infection. Return your stool sample to the hospital so analysis can be perf ormed. Follow a clear liquid diet and advance it as you can tolerate as your pain resolves. Follow-up with Dr. Phillips for results of your stool studies and for recheck of your symptoms. Return to the ER for fever, vomiting, increased pain, blood in your stools, or for any other cause for concern. Avoid constipation Avoid seeds nuts and popcorn High Fiber diet; As Fiber softens the stool and helps prevent constipation. It also can help decrease pressure in the colon and help prevent flare-ups of diverticulitis. High-fiber foods include: ? Beans and legumes ? Bran, whole wheat bread and whole grain cereals such as oatmeal ? Brown and wild rice ? Fruits such as apples, bananas and pears ? Vegetables such as broccoli, carrots, corn and squash ? Whole wheat pasta The target is to eat 25 to 30 grams of fiber daily. Drink at least 8 cups of fluid daily. Fluid will help soften your stool.Exercise also promotes bowel movement and helps prevent constipation. 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
--- NOTE | 2020-02-03 12:48 | PC.NURSE ---
discharge instructions given to patient and patient verbalized understanding of instructions. IV removed. Patient wants to shower prior to going home. shower set up.
--- NOTE | 2020-02-03 14:15 | PC.NURSE ---
patient walked to private vehicle by staff.
[2020-02-03 14:17] VITALS: BP 107/70; PULSE 63; RESP 18; TEMP 37.2; O2SAT 91
--- NOTE | 2020-02-04 09:53 | PC.NURSE ---
patient called and stated [facility] C[facility] didn't receive script for Flagyl. 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
== END 2020-02-03 14:17 | disposition home or self-care (01) | DRG 392 ==
LOC: ER 19:01 → MEDSURG 20:01
PROVIDERS: Admitting Provider Internal Medicine; Emergency Provider Emergency Medicine; PCP Family Medicine; Visit Provider Internal Medicine
DX: K52.9 Noninfective gastroenteritis and colitis, unspecified (principal); N39.0 Urinary tract infection, site not specified; N17.9 Acute kidney failure, unspecified; E87.1 Hypo-osmolality and hyponatremia; I47.1 Supraventricular tachycardia; M17.12 Unilateral primary osteoarthritis, left knee; I10 Essential (primary) hypertension; R32 Unspecified urinary incontinence; K59.09 Other constipation; K57.90 Diverticulosis of intestine, part unspecified, without perforation or abscess without bleeding; E78.5 Hyperlipidemia, unspecified; Z79.891 Long term (current) use of opiate analgesic; M10.9 Gout, unspecified; E11.9 Type 2 diabetes mellitus without complications; Z85.3 Personal history of malignant neoplasm of breast; E03.9 Hypothyroidism, unspecified; G25.81 Restless legs syndrome; Z87.891 Personal history of nicotine dependence; D64.9 Anemia, unspecified; E86.0 Dehydration; G89.29 Other chronic pain; E87.6 Hypokalemia; K21.9 Gastro-esophageal reflux disease without esophagitis
CPT/HCPCS: 12345; 36415; 74174; 80048; 80053; 80069; 81001; 83036; 83605; 83630; 83690; 83735; 84484; 85025; 87077; 87086; 87186; 87493; 87506; 87635; 93005; 96375; 99284; G0378; J0153; J0696; J0744; J2270; J2405; J2543; J3480; J7030; Q0169; Q9967; S0030

== ENCOUNTER → 2020-02-17 14:24 | Outpatient (BNVA) | payer MEDICARE, MEDICAID, SELFPAY | PROVIDERS: PCP Family Medicine; Visit Provider Family Medicine | DX: K52.9 Noninfective gastroenteritis and colitis, unspecified (principal); D64.9 Anemia, unspecified | CPT/HCPCS: 80048; 85025 ==

== ENCOUNTER → 2020-02-19 15:46 | Outpatient (BNVA) | payer MEDICARE, MEDICAID, SELFPAY | PROVIDERS: PCP Family Medicine; Visit Provider Family Medicine | DX: D64.9 Anemia, unspecified (principal) | CPT/HCPCS: 82728; 83550 ==

== ENCOUNTER → 2020-02-26 10:59 | Outpatient (BNVA) | payer MEDICARE, MEDICAID, SELFPAY | PROVIDERS: Family Provider Family Medicine; PCP Family Medicine; Visit Provider Anesthesiology | DX: M48.062 Spinal stenosis, lumbar region with neurogenic claudication (principal); M43.10 Spondylolisthesis, site unspecified; M54.2 Cervicalgia; M62.830 Muscle spasm of back; Z79.891 Long term (current) use of opiate analgesic; N30.01 Acute cystitis with hematuria; Z68.30 Body mass index [BMI] 30.0-30.9, adult; F17.211 Nicotine dependence, cigarettes, in remission; Z71.89 Other specified counseling | CPT/HCPCS: 81000; 99213; 99214 ==

== ENCOUNTER 2020-03-04 14:07 | Outpatient (CLI) | payer MEDICARE, MEDICAID, SELFPAY ==
[2020-03-04 14:55] LABS: Free T4 Free Thyroxine 1.43 ng/dL (0.82-1.77); Thyroid Stimulating Hormone 1.87 uIU/mL (0.27-4.20)
== END 2020-03-04 14:08 | disposition home or self-care (01) ==
PROVIDERS: PCP Family Medicine; Visit Provider Internal Medicine
DX: E03.9 Hypothyroidism, unspecified (principal)
CPT/HCPCS: 36415; 84439; 84443

== ENCOUNTER → 2020-03-07 15:04 | Outpatient (BNVA) | payer MEDICARE, MEDICAID, SELFPAY | PROVIDERS: PCP Family Medicine; Visit Provider Internal Medicine | DX: E03.9 Hypothyroidism, unspecified (principal); I10 Essential (primary) hypertension; I47.1 Supraventricular tachycardia | CPT/HCPCS: 99214 ==

== ENCOUNTER 2020-03-23 13:04 | Outpatient (CLI) | payer MEDICARE, MEDICAID, SELFPAY ==
--- NOTE | 2020-03-23 12:45 | USCV_ITS ---
Nicolette Smallwood Age: 69 Gender: F : 1950 Exam Date: 03/23/2020 13:28 Ordering Phys: Shiva Keith MD ([email or web address]) Technologist: Ebonie Espinoza [place] [facility] [place]: [place] BP: 126 / 74 HR: 65 Rhythm: Sinus Technical Quality: Adequate MEASUREMENTS (Male / Female) Normal Values 2D ECHO LV Diastolic Diameter PLAX 2.9 cm 4.2 - 5.9 / 3.9 - 5.3 cm LV Systolic Diameter PLAX 2.6 cm LV Chamber Size 3.8 cm IVS Diastolic Thickness 1.3 cm 0.6 - 1.0 / 0.6 - 0.9 cm IVS Systolic Thickness 1.1 cm LVPW Diastolic Thickness 1.6 cm 0.6 - 1.0 / 0.6 - 0.9 cm LVPW Systolic Thickness 2.5 cm RV Chamber Size 3.5 cm LVOT Diameter 2.0 cm LV Ejection Fraction 2D Teich 25.2 % LV Ejection Fraction MOD 2C 57.9 % LV Ejection Fraction 2C AL 56.6 % LA Diameter 3.0 cm LA Width 2.3 cm LA Height 3.3 cm RA Width 3.4 cm RA Height 3.4 cm Aorta at Sinotubular Diameter 3.1 cm M-MODE LV Diastolic Diameter MM 5.0 cm 4.2 - 5.9 / 3.9 - 5.3 cm LV Systolic Diameter MM 3.9 cm LV Ejection Fraction MM Teich 45.3 % IVS Diastolic Thickness MM 0.7 cm 0.6 - 1.0 / 0.6 - 0.9 cm IVS Systolic Thickness MM 1.0 cm LVPW Diastolic Thickness MM 1.1 cm 0.6 - 1.0 / 0.6 - 0.9 cm LVPW Systolic Thickness MM 1.1 cm Aortic Annulus Diameter 2.9 cm LA Ao Ratio MM 1.1 MV E Point Septal Separation 0.5 cm DOPPLER AV Peak Velocity 111.0 cm/s LVOT Peak Velocity 95.0 cm/s AV Area Cont Eq vti 3.1 cm squared AV Area Cont Eq pk 2.8 cm squared MV Area PHT 2.2 cm squared Mitral E to A Ratio 0.8 MV E' Velocity 28.5 cm/s Mitral E to MV E' Ratio 8.4 Mitral E to LV E' Lateral Ratio 7.4 Mitral E to LV E' Septal Ratio 9.7 TR Peak Velocity 175.5 cm/s TR Peak Gradient 12.3 mmHg TV Peak E Velocity 44.0 cm/s Right Atrial Pressure 3.0 mmHg Pulmonary Artery Systolic Pressu 15.3 mmHg PV Peak Velocity 47.0 cm/s RV Acceleration Time 0.2 s RV Ejection Time 0.4 s RV AcT/ET 0.4 FINDINGS Left Ventricle Diffuse hypokinesis of the left ventricle with ejection fraction of 45%.mild left ventricular hypertrophy.Grade I/IV diastolic dysfunction (abnormal relaxation filling pattern), normal to mildly elevated filling pressures. Right Ventricle Normal right ventricular size and systolic function. Right Atrium The right atrium is normal in size. Left Atrium The left atrium is normal in size. Mitral Valve No gross abnormalities noted Aortic Valve Thickened aortic valve. Tricuspid Valve No gross abnormalities noted Pulmonic Valve No gross abnormalities noted Pericardium Normal pericardium without effusion. Aorta Normal ascending aorta dimension. CONCLUSIONS Diffuse hypokinesis of the left ventricle with ejection fraction of 45%.mild left ventricular hypertrophy. Grade I/IV diastolic dysfunction (abnormal relaxation filling pattern), normal to mildly elevated filling pressures. Minimally thickened aortic valve There is no pericardial effusion. There are no intracardiac masses. Compared to the previous study from 02/09/2013, the drop in the LV ejection fraction appears to be new Dr Shiva Keith MD [facility] (Electronically Signed) Final Date: 23 March 2020 18:49 S
== END 2020-03-23 13:05 | disposition home or self-care (01) ==
LOC: RAD 13:09
PROVIDERS: PCP Family Medicine; Visit Provider Internal Medicine Cardiovascular Disease
DX: R01.1 Cardiac murmur, unspecified (principal)
CPT/HCPCS: 93306

== ENCOUNTER → 2020-04-06 15:45 | Outpatient (BNVA) | payer MEDICARE, MEDICAID, SELFPAY | PROVIDERS: PCP Family Medicine; Visit Provider Nurse Practitioner Family | DX: R35.0 Frequency of micturition (principal); R39.9 Unspecified symptoms and signs involving the genitourinary system; R10.9 Unspecified abdominal pain | CPT/HCPCS: 81000; 87077; 87086; 87184 ==

== ENCOUNTER 2020-04-15 07:48 | Outpatient (CLI) | payer MEDICARE, MEDICAID, SELFPAY ==
[2020-04-15 07:54] VITALS: BMI 29.8
--- NOTE | 2020-04-15 07:54 | ECG_ITS ---
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 Interpretive Statements NAME OF STUDY: LEXISCAN SESTAMIBI STRESS TEST INDICATION: Abnormal echo, PROCEDURE: At the baseline, the EKG revealed sinus bradycardia with a heart rate of 54 bpm. Poor R wave progression. The baseline blood pressure was 152/106 mm Hg with a heart rate of 54 beats/min. Lexiscan was infused over a period of 20 seconds. A total of 0.4 milligrams of Lexiscan was infused. The stress phase was continued for a total of 5 minutes. Heart rate at the end of the stress phase was 67 with a blood pressure 159/96. The EKG at the peak infusion revealed no significant changes. Sestamibi was injected 20 seconds after the Lexiscan infusion. Blood pressure at the end of the recovery phase was 159/96 with a heart rate of 67 per minute. CONCLUSION: 1. No significant EKG changes with the LexiScan infusion 2. No LexiScan induced chest pain or cardiac arrhythmia 3. Normal blood pressure and heart rate response 4. Sestamibi/sestamibi perfusion scan pending; see separate report. Electronically Signed On 04-15-2020 16:52:23 LINING MACHINE OPERATOR by Shiva Keith M.D. [id number]
--- NOTE | 2020-04-15 07:55 | NMCV_ITS ---
NM magali perf SPECT r/s* [id number] Nicolette Smallwood Age: 69 Gender: F : 1950 Exam Date: 04/15/2020 08:42 Ordering Phys: Shiva Keith MD ([email or web address]) Technologist: LISA Collins Exam Location: [facility] Indications: ABNORMAL FINDINGS STRESS TEST [facility] IMAGE PROTOCOL Rest/Stress 1 Lexiscan Day Radiopharmaceutical Dose (mCi) Administration Site Administered by Rest: Tc-99m 10.7 IV LISA Johnson Sestamibi Stress:Tc-99m 32.4 IV LISA Collins Sestamibita Rest: 15-Apr-2020 60 Discovery 630 Stress: 15-Apr-2020 30 Discovery 630 0.4mg Lexiscan. Supine position only as patient was unable to lay prone. SPECT RESULTS Technical Quality: Excellent Raw Data Analysis: Normal Image Corrections: No attenuation or motion correction applied Summed Stress Score: 3 Summed Rest Score: 4 Summed Difference Score: 1 PERFUSION FINDINGS Small area of decreased aseptic was noted in the mid and apical inferior and apical lateral regions. Subtle area of reversibility was noted in the apical lateral region FUNCTIONAL RESULTS (calculated via Gated SPECT) Stress Image LV EF (%): 70 Stress EDV (mL):112 TID: 1.11 Stress ESV (mL):34 FUNCTIONAL FINDINGS: Segmental wall motion analysis revealing no gross wall motion normalities IMPRESSIONS 1. Myocardial perfusion may revealing a small area of decreased tracer uptake in the inferior and lateral region with a subtle area of reversibility in the apical inferolateral region, suggesting myocardial scarring with the subtle area of jeff-infarction ischemia in the distribution of the right coronary artery. 2. Normal LV ejection fraction of 70%. 3. LV wall motion analysis revealing no gross wall motion normalities. 4. Normal LV volume. No similar previous studies are available for comparison Dr Shiva Keith MD [facility] (Electronically Signed) Final Date: 15 April 2020 15:53 S
[2020-04-15] MEDS: regadenoson 0.4 Mg/5 ml Syringe IVP (09:43)
[2020-04-15 10:05] VITALS: BP 165/98; PULSE 70
== END 2020-04-15 07:49 | disposition home or self-care (01) ==
LOC: CDL 07:52
PROVIDERS: PCP Family Medicine; Visit Provider Internal Medicine Cardiovascular Disease
DX: R93.1 Abnormal findings on diagnostic imaging of heart and coronary circulation (principal)
CPT/HCPCS: 78452; 93017; A9500; J2785

== ENCOUNTER → 2020-04-27 13:32 | Outpatient (BNVA) | payer MEDICARE, MEDICAID, SELFPAY | PROVIDERS: PCP Family Medicine; Visit Provider Nurse Practitioner | DX: M48.062 Spinal stenosis, lumbar region with neurogenic claudication (principal); M43.10 Spondylolisthesis, site unspecified; M54.2 Cervicalgia; M43.6 Torticollis; M62.830 Muscle spasm of back; Z79.891 Long term (current) use of opiate analgesic | CPT/HCPCS: 99213 ==

== ENCOUNTER → 2020-04-29 14:15 | Outpatient (BNVA) | payer MEDICARE, MEDICAID, SELFPAY | PROVIDERS: PCP Family Medicine; Visit Provider Obstetrics & Gynecology | DX: R10.2 Pelvic and perineal pain (principal); Z90.710 Acquired absence of both cervix and uterus | CPT/HCPCS: 76830 ==

== ENCOUNTER → 2020-05-02 13:13 | Outpatient (BNVA) | payer MEDICARE, MEDICAID, SELFPAY | PROVIDERS: PCP Family Medicine; Visit Provider Anesthesiology Pain Medicine | DX: M47.816 Spondylosis without myelopathy or radiculopathy, lumbar region (principal); M48.062 Spinal stenosis, lumbar region with neurogenic claudication; Z79.891 Long term (current) use of opiate analgesic | CPT/HCPCS: 64635; 64636; J1030 ==

== ENCOUNTER → 2020-05-07 14:53 | Outpatient (BNVA) | payer MEDICARE, MEDICAID, SELFPAY | PROVIDERS: PCP Family Medicine; Visit Provider Nurse Practitioner Family | DX: R19.8 Other specified symptoms and signs involving the digestive system and abdomen (principal); N39.0 Urinary tract infection, site not specified | CPT/HCPCS: 81000; 87077; 87086; 87184 ==

== ENCOUNTER → 2020-05-09 12:44 | Outpatient (BNVA) | payer MEDICARE, MEDICAID, SELFPAY | PROVIDERS: PCP Family Medicine; Visit Provider Anesthesiology Pain Medicine | DX: M47.816 Spondylosis without myelopathy or radiculopathy, lumbar region (principal); M48.062 Spinal stenosis, lumbar region with neurogenic claudication; Z79.891 Long term (current) use of opiate analgesic | CPT/HCPCS: 64635; 64636; J1030 ==

== ENCOUNTER 2020-05-11 12:54 | Outpatient (CLI) | payer MEDICARE, MEDICAID, SELFPAY ==
--- NOTE | 2020-05-11 13:00 | MM_ITS ---
WS: [id number] BILATERAL DIGITAL DIAGNOSTIC MAMMOGRAM MAMMOGRAPHY WITH CAD CLINICAL INFORMATION: left breast lump;Hx Lt breast ca COMPARISON: TECHNIQUE: Bilateral CC, MLO, and ML views. FINDINGS: Scattered fibroglandular densities bilaterally. Vascular calcification. Previous biopsy site with par enchymal fibrosis and punctate calcifications. Lucent centered calcifications. This is unchanged in a ppearance compared to previous. Right breast is unchanged and unremarkable. Biopsy clip as visualized . Ultrasound is pending. ULTRASOUND BREAST LEFT TECHNIQUE: Ultrasound left breast focused area of concern. CLINICAL INFORMATION: left breast lump;Hx Lt breast ca COMPARISON: and June 12, 2019 FINDINGS: Ultrasound left breast at the biopsy site. Previous biopsy demonstrated benign breast tissue and dens e fibrosis. Dense scar tissue in the area of previous biopsy. This is unchanged in appearance compare d to previous. Stable hypoechoic densely shadowing 5 x 9 mm lesion which corresponds to the previous biopsy site. Small punctate calcifications. This is unchanged. MM/[place] [id number] IMPRESSION: BI-RADS: 2-Benign FOLLOW UP: 1 Year Follow-up Recommend return to annual diagnostic mammography.
--- NOTE | 2020-05-11 14:15 | US_ITS ---
WS: [id number] BILATERAL DIGITAL DIAGNOSTIC MAMMOGRAM MAMMOGRAPHY WITH CAD CLINICAL INFORMATION: left breast lump;Hx Lt breast ca COMPARISON: TECHNIQUE: Bilateral CC, MLO, and ML views. FINDINGS: Scattered fibroglandular densities bilaterally. Vascular calcification. Previous biopsy site with par enchymal fibrosis and punctate calcifications. Lucent centered calcifications. This is unchanged in a ppearance compared to previous. Right breast is unchanged and unremarkable. Biopsy clip as visualized . Ultrasound is pending. ULTRASOUND BREAST LEFT TECHNIQUE: Ultrasound left breast focused area of concern. CLINICAL INFORMATION: left breast lump;Hx Lt breast ca COMPARISON: and June 12, 2019 FINDINGS: Ultrasound left breast at the biopsy site. Previous biopsy demonstrated benign breast tissue and dens e fibrosis. Dense scar tissue in the area of previous biopsy. This is unchanged in appearance compare d to previous. Stable hypoechoic densely shadowing 5 x 9 mm lesion which corresponds to the previous biopsy site. Small punctate calcifications. This is unchanged. US/US breast LT limited* [id number] IMPRESSION: BI-RADS: 2-Benign FOLLOW UP: 1 Year Follow-up Recommend return to annual diagnostic mammography.
== END 2020-05-11 12:55 | disposition home or self-care (01) ==
LOC: RADSHAW 12:59
PROVIDERS: PCP Family Medicine; Visit Provider Obstetrics & Gynecology
DX: N63.20 Unspecified lump in the left breast, unspecified quadrant (principal); Z85.3 Personal history of malignant neoplasm of breast; E03.9 Hypothyroidism, unspecified
CPT/HCPCS: 36415; 76642; 77066; 84439; 84443

== ENCOUNTER 2020-05-11 14:15 | Outpatient (CLI) | payer MEDICARE, MEDICAID, SELFPAY ==
[2020-05-11 15:20] LABS: Free T4 Free Thyroxine 1.04 ng/dL (0.82-1.77); Thyroid Stimulating Hormone 10.31 uIU/mL (0.27-4.20)
== END 2020-05-11 14:16 | disposition home or self-care (01) ==
PROVIDERS: PCP Family Medicine; Visit Provider Internal Medicine
DX: E03.9 Hypothyroidism, unspecified (principal)
CPT/HCPCS: 36415; 84439; 84443

== ENCOUNTER → 2020-05-25 13:09 | Outpatient (BNVA) | payer MEDICARE, MEDICAID, SELFPAY | PROVIDERS: PCP Family Medicine; Visit Provider Internal Medicine | DX: E03.9 Hypothyroidism, unspecified (principal); I10 Essential (primary) hypertension; I47.1 Supraventricular tachycardia; R35.0 Frequency of micturition | CPT/HCPCS: 81000; 81003; 87086; 99214 ==

== ENCOUNTER → 2020-06-13 15:54 | Outpatient (BNVA) | payer MEDICARE, MEDICAID, SELFPAY | PROVIDERS: PCP Family Medicine; Visit Provider Nurse Practitioner Family | DX: N39.0 Urinary tract infection, site not specified (principal) | CPT/HCPCS: 87077; 87086; 87184 ==

== ENCOUNTER 2020-06-15 10:25 | Outpatient (CLI) | payer MEDICARE, MEDICAID, SELFPAY ==
--- NOTE | 2020-06-15 10:45 | FL_ITS ---
WS: [id number] INDICATION: Barium enema. Change in bowel habits. Constipation. TECHNIQUE: Single contrast barium enema FINDINGS: Normal rapid filling of the sigmoid colon with extensive diverticulosis. No evidence of hig h-grade narrowing or obstruction. Normal hepatic and splenic flexures. Normal ileocecal valve. No gustavo dence of high-grade obstruction or filling defects to the cecum. Additional descending colon and hepa tic flexure diverticulosis. Advanced osteopenia. Moderate spondylitic changes lumbar spine. Normal postevacuation images. FL/FL barium enema [id number] IMPRESSION: 1. Unremarkable barium enema. No evidence of high-grade stricture or obstructi ng mass. 2. Extensive sigmoid diverticulosis. No strictures. 3. No suspicious findings.
== END 2020-06-15 10:26 | disposition home or self-care (01) ==
LOC: RADWPI 10:26
PROVIDERS: PCP Family Medicine; Visit Provider Surgery
DX: R19.4 Change in bowel habit (principal); K57.30 Diverticulosis of large intestine without perforation or abscess without bleeding
CPT/HCPCS: 74270

== ENCOUNTER → 2020-06-22 10:38 | Outpatient (BNVA) | payer MEDICARE, MEDICAID, SELFPAY | PROVIDERS: PCP Family Medicine; Visit Provider Nurse Practitioner | DX: M50.90 Cervical disc disorder, unspecified, unspecified cervical region (principal); M48.062 Spinal stenosis, lumbar region with neurogenic claudication; M25.561 Pain in right knee; M25.562 Pain in left knee; M62.830 Muscle spasm of back; M43.10 Spondylolisthesis, site unspecified; Z79.891 Long term (current) use of opiate analgesic | CPT/HCPCS: 99214 ==

== ENCOUNTER 2020-06-30 14:57 | Outpatient (CLI) | payer MEDICARE, MEDICAID, SELFPAY ==
[2020-06-30 15:41] LABS: Thyroid Stimulating Hormone 6.55 uIU/mL (0.27-4.20)
== END 2020-06-30 14:58 | disposition home or self-care (01) ==
LOC: LAB 15:00
PROVIDERS: PCP Family Medicine; Visit Provider Internal Medicine
DX: E03.9 Hypothyroidism, unspecified (principal)
CPT/HCPCS: 36415; 84439; 84443

== ENCOUNTER → 2020-07-20 14:26 | Outpatient (BNVA) | payer MEDICARE, MEDICAID, SELFPAY | PROVIDERS: PCP Family Medicine; Visit Provider Urology | DX: N39.0 Urinary tract infection, site not specified (principal) | CPT/HCPCS: 81003; 87077; 87086; 87184 ==

== ENCOUNTER 2020-07-22 12:39 | Outpatient (CLI) | payer MEDICARE, MEDICAID, SELFPAY ==
--- NOTE | 2020-07-22 13:00 | MR_ITS ---
WS: [id number] MRI CERVICAL SPINE NONCONTRAST TECHNIQUE: Sagittal T1, T2 and STIR imaging. Axial T2, gradient, and fiesta imaging. CLINICAL INFORMATION: M50.90 - Cervical disc disorder, unspecified, unspecified cervical region COMPARISON: None. FINDINGS: Mild exaggeration normal cervical lordosis. No high-grade central canal stenosis. Cord signal is norm al. C2-C3: Normal. C3-C4: Mild disc osteophyte complex with endplate ridging. Mild central canal stenosis. Slight contac t of the cervical cord. Mild left greater than right bony foraminal narrowing. Mild facet arthropathy . C4-C5: Disc osteophyte complex with endplate ridging. Moderate central canal stenosis. Slight contact and compression of the cervical cord. Moderate left and mild right foraminal narrowing. Moderate fac et arthropathy. C5-C6: Disc osteophyte complex with endplate ridging. Spinal canal is patent. Moderate right foramina l narrowing. Moderate facet arthropathy. C6-C7: Disc osteophyte complex with endplate ridging. Mild central canal stenosis. Moderate left and mild right bony foraminal narrowing. Mild facet arthropathy. C7-T1: Normal. Visualized brain stem structures: Normal. Prevertebral soft tissues: Normal. MR/MR cervical spin wo con* [id number] IMPRESSION: 1. Moderate spondylitic changes cervical spine. Cord signal is normal. 2. Mild to moderate central canal stenosis C3-C4 C4-C5 and C6-C7 worse at C4-C 5 with slight indentation on the cervical cord. 3. Multilevel moderate bony foraminal narrowing worse at left C4-5, right C5-6 , and left C6-7.
== END 2020-07-22 12:40 | disposition home or self-care (01) ==
LOC: RADSHAW 12:41
PROVIDERS: PCP Family Medicine; Visit Provider Nurse Practitioner
DX: M50.90 Cervical disc disorder, unspecified, unspecified cervical region (principal); M48.00 Spinal stenosis, site unspecified
CPT/HCPCS: 72141

== ENCOUNTER 2020-07-25 14:17 | Outpatient (CLI) | payer MEDICARE, MEDICAID, SELFPAY ==
[2020-07-25 15:07] LABS: Free T4 Free Thyroxine 1.36 ng/dL (0.82-1.77); Thyroid Stimulating Hormone 7.47 uIU/mL (0.27-4.20)
== END 2020-07-25 14:18 | disposition home or self-care (01) ==
PROVIDERS: PCP Family Medicine; Visit Provider Internal Medicine
DX: E03.9 Hypothyroidism, unspecified (principal); I10 Essential (primary) hypertension; I47.1 Supraventricular tachycardia
CPT/HCPCS: 84439; 84443; 99215

== ENCOUNTER → 2020-08-19 13:06 | Outpatient (BNVA) | payer MEDICARE, MEDICAID, SELFPAY | PROVIDERS: PCP Family Medicine; Visit Provider Nurse Practitioner | DX: M48.062 Spinal stenosis, lumbar region with neurogenic claudication (principal); M54.2 Cervicalgia; M43.10 Spondylolisthesis, site unspecified; M17.0 Bilateral primary osteoarthritis of knee; M79.671 Pain in right foot; M79.672 Pain in left foot; M62.830 Muscle spasm of back; Z79.891 Long term (current) use of opiate analgesic | CPT/HCPCS: 99212 ==

== ENCOUNTER → 2020-09-07 15:51 | Outpatient (BNVA) | payer MEDICARE, MEDICAID, SELFPAY | PROVIDERS: PCP Family Medicine; Visit Provider Urology | DX: N39.0 Urinary tract infection, site not specified (principal) | CPT/HCPCS: 81003; 87077; 87086; 87184 ==

== ENCOUNTER → 2020-10-19 14:08 | Outpatient (BNVA) | payer MEDICARE, MEDICAID, SELFPAY | PROVIDERS: PCP Family Medicine; Visit Provider Urology | DX: N39.0 Urinary tract infection, site not specified (principal) | CPT/HCPCS: 81003 ==

== ENCOUNTER → 2020-10-26 12:52 | Outpatient (BNVA) | payer MEDICARE, MEDICAID, SELFPAY | PROVIDERS: PCP Family Medicine; Visit Provider Nurse Practitioner | DX: M48.062 Spinal stenosis, lumbar region with neurogenic claudication (principal); M54.2 Cervicalgia; M25.561 Pain in right knee; M25.562 Pain in left knee; M62.830 Muscle spasm of back; M43.10 Spondylolisthesis, site unspecified; M17.0 Bilateral primary osteoarthritis of knee; Z79.891 Long term (current) use of opiate analgesic; Z87.891 Personal history of nicotine dependence | CPT/HCPCS: 99212; 99213 ==

== ENCOUNTER 2020-12-09 12:17 | Outpatient (CLI) | payer MEDICARE, MEDICAID, SELFPAY ==
--- NOTE | 2020-12-09 12:45 | USCV_ITS ---
Nicolette Smallwood Age: 70 Gender: F : 1950 Exam Date: 12/09/2020 12:35 Ordering Phys: Shiva Keith MD ([email or web address]) Technologist: Miriam Salas Exam Location: [facility] [place] Indication: AMAUROSIS FUGAX Risk Factors: Unknown Previous Vascular Surgery: None Right Brachial BP: / Left Brachial BP: / Right Left Velocity (cm/s) Spectral Plaque Velocity (cm/s) Spectral Plaque Syst/Diast Broadening Syst/Diast Broadening 63.90/ 14.30 Prox CCA 62.60 / 20.40 59.50/ 17.60 Mid CCA 83.70 / 26.40 52.00/ 16.30 Distal CCA 75.40 / 27.10 53.50/ 20.50 Prox ICA 59.00 / 23.30 67.40/ 28.60 Mid ICA 53.60 / 27.20 59.40/ 25.90 Distal ICA 58.90 / 27.60 54.40 ECA 46.30 1.13 ICA/CCA 0.71 Antegrade Vertebral Antegrade 55.10/ 24.10 cm/s 47.30/ 13.80 cm/s Bi Subclavian Tri 77.70 49.40 FINDINGS Comparison: none available. No significant elevation of systolic or diastolic velocities. Waveforms are normal. Mild bilateral atherosclerotic plaque. CONCLUSIONS Bilateral ICA stenosis less than 50%. Dr. Radha Pandya DO (Electronically Signed) Final Date: 16 December 2020 08:17 S
== END 2020-12-09 12:18 | disposition home or self-care (01) ==
LOC: RAD 12:20
PROVIDERS: PCP Family Medicine; Visit Provider Internal Medicine Cardiovascular Disease
DX: G45.3 Amaurosis fugax (principal); H53.9 Unspecified visual disturbance
CPT/HCPCS: 93880

== ENCOUNTER 2020-12-10 11:34 | Emergency (ER) | payer MEDICARE, MEDICAID, SELFPAY ==
[2020-12-10 12:41] VITALS: BP 113/60; PULSE 67; RESP 19; TEMP 36.7; O2SAT 98; BMI 28.5
--- NOTE | 2020-12-10 13:04 | CTR_ITS ---
PROCEDURE INFORMATION: Exam: CT Abdomen And Pelvis Without Contrast Exam date and time: 12/10/2020 1:04 PM Age: 70 years old Clinical indication: Abdominal pain/colic. Prior hysterectomy. History of breast cancer and diverticulitis. TECHNIQUE: Imaging protocol: Computed tomography of the abdomen and pelvis without contrast. Radiation optimization: All CT scans at this facility use at least one of these dose optimization techniques: automated exposure control; mA and/or kV adjustment per patient size (includes targeted exams where dose is matched to clinical indication); or iterative reconstruction. COMPARISON: CT angio abdomen pelvis [id number] 01/30/2020 2:41 PM RADIATION DOSE METRICS: Total DLP (mGy-cm): 1690.6 FINDINGS: Lungs: There is minimal scarring or atelectasis at the lung bases. Very small pericardial effusion. No hiatal hernia. Liver: The liver is unremarkable. Gallbladder and bile ducts: The gallbladder is unremarkable. Pancreas: The pancreas is unremarkable. Spleen: Multiple calcified splenic granulomata are noted. Adrenal glands: The adrenal glands are unremarkable. Kidneys and ureters: The kidneys are unremarkable. Stomach and bowel: The stomach and small bowel are unremarkable.; There is wall thickening involving the descending colon, sigmoid colon and rectum compatible with proctocolitis. Colonic diverticulosis is seen without definite evidence of acute diverticulitis. Appendix: The appendix is unremarkable. Intraperitoneal space: No free intraperitoneal air is seen. Vasculature: No abdominal aortic aneurysm. Lymph nodes: No retroperitoneal lymphadenopathy. Urinary bladder: The bladder is partially decompressed. Reproductive: There has been prior hysterectomy. Bones/joints: No acute fracture is seen. Soft tissues: Small fat containing umbilical hernia. CT/CT abdomen pelvis wo con [id number] IMPRESSION: 1. There is wall thickening involving the descending/sigmoid colon and rectum with surrounding edema compatible with proctocolitis. 2. Colonic diverticulosis is seen without definite evidence of acute diverticulitis. 3. Very small pericardial effusion. Radiation Dose CTDIVOL = (mGy): DLP = 1690.6 (mGy-cm)
--- NOTE | 2020-12-10 13:06 | W.ED.ABDPA2 ---
HPI - Abdominal Pain General: Chief Complaint: Abdominal Pain Stated Complaint: Nausea, weak, Time Seen by Provider: 12/10/20 12:48 History of Present Illness: HPI narrative: The patient is a 70-year-old female with past medical history of diverticulosis, chronic pain syndrome comes to the ER complaining of abdominal crampy pain. She says she has had Shigella about a year ago and then after she recovered from that started getting episodes of diverticulitis. She saw her primary care doctor recently and was placed on amoxicillin and Flagyl she thinks. She says she has not been eating or drinking very much and is losing weight. She complains of increased constipation and external hemorrhoids as well. MD elicited complaint: abdominal pain Pertinent past history: diverticulitis Location: Diffuse Severity: moderate Quality: cramping Radiation: none Exacerbating factors: eating Relieving factors: nothing Associated Symptoms: Reports constipation and GI cramping; Denies nausea and vomiting Review of Systems General: Reports: 10 or more systems reviewed and unremarkable except in HPI and below Const: Denies: fatigue Eyes: Denies: change in vision, blurry vision or eye redness ENMT: Denies: throat pain, swelling of lips/tongue, ear or mastoid pain or nasal congestion Card: Denies: chest pain, palpitations, irregular heart rhythm, edema, dyspnea on exertion or orthopnea Resp: Denies: dyspnea, productive cough or non-productive cough GI: Reports: abdominal pain, constipation and GI cramping; Denies: nausea or vomiting : Denies: flank pain, difficulty voiding, urinary frequency or urinary urgency Musc: Denies: neck pain, back pain, extremity pain, joint pain, joint redness, limited range of motion or muscle weakness Skin/Breast: Denies: rash, pruritus, erythema, skin pain or skin tenderness Neuro: Denies: headache(s), numbness in extremities, weakness in extremities, sensory changes, difficulty walking, dizziness, confusion or Slurred speech present Psych: Denies: anxiety or depression Endo: Denies: polyuria All/Imm: Denies: urticaria, throat swelling or tongue swelling PFSH ED PFSH: Medical History Abnormal cardiovascular stress test Abnormal mammogram Acute bilateral knee pain Acute neck pain Arthritis of knee, left Benign essential HTN Bilateral foot pain Bladder incontinence Bloody diarrhea Change in bowel habit Constipation Diverticular disease Dyslipidemia Elevated blood pressure reading Encounter for long-term use of opiate analgesic Heart murmur Hemorrhoids History of DVT (deep vein thrombosis) History of gout History of shingles Hx of diabetes mellitus HX: breast cancer Hypothyroidism Leg swelling Lumbar paraspinal muscle spasm Pain amplification syndrome Polyneuropathy, unspecified Restless legs syndrome Retrolisthesis of vertebrae Shigellosis, unspecified Spinal stenosis, lumbar region with neurogenic claudication Supraventricular tachycardia Surgical History H/O colonoscopy H/O: hysterectomy History of lumpectomy of left breast Hx of arthroscopy of knee Hx of cataract surgery Family History Mother Diabetes Family/Other Diabetes maternal aunt, nephew Thyroid condition cousin Breast cancer maternal aunt, diagnosed in her 70's or 80's Father Throat cancer Other Cancer Denies family history of Colon cancer Ovarian cancer Clotting disorder Heart disease Hyperlipidemia Anesthesia complication Bleeding disorder Hypertension Uterine cancer Stroke Social History Smoking and tobacco status: never smoked Alcohol intake: never History of recent travel: No Physical Exam Const: COMMON NORMALS: no acute distress, average body habitus, patient oriented x3, no limitations, healthy appearing, alert and well nourished GENERAL APPEARANCE: cooperative, comfortable, well kempt and well developed ORIENTATION/CONSCIOUSNESS: Yes awake, Yes oriented to person, Yes oriented to place and Yes oriented to time HENMT: COMMON NORMALS: normocephalic, external ears normal and Normal external nose present HEAD & SCALP: normal to inspection and normocephalic NOSE: Normal external nose present EXTERNAL EAR: Yes external ears normal MOUTH: Normal oral and palatal mucosa present THROAT: posterior oropharynx normal Eye: COMMON NORMALS: Equal, round and reactive pupils present and EOMs intact bilaterally GENERAL EYE: appearance normal, both eyes and all related structures PUPIL: Yes Equal, round and reactive pupils present Neck/C-Spine: COMMON NORMALS: full ROM, no lymphadenopathy, no meningeal signs and no JVD GENERAL: Yes normal visual inspection Lymph: LYMPHATIC: no lymphadenopathy noted Chest: COMMONS NORMALS: normal inspection of the chest and normal palpation of entire chest wall Resp: COMMON NORMALS: normal respiratory effort, No retractions, No use of accessory muscles, clear to auscultation bilaterally and percussion normal EFFORT & INSPECTION: Yes able to speak in complete sentences AUSCULTATION: clear to auscultation bilaterally PERCUSSION: percussion normal Cardio: COMMON NORMALS: no JVD, regular rate, regular rhythm, S1 normal heart sound present, S2 normal heart sound present and Peripheral pulses 2+ throughout RATE: regular rate RHYTHM: regular rhythm HEART SOUNDS: S1 normal heart sound present and S2 normal heart sound present PERIPHERAL PULSES: Peripheral pulses 2+ throughout GI: COMMON NORMALS: Normal to inspection, nondistended, normoactive bowel sounds present, Soft to palpation, non-tender and no masses INSPECTION: Yes normal to inspection PALPATION: Yes Soft to palpation : COMMON NORMALS: Yes no CVA tenderness BLADDER/KIDNEY EXAM: Yes no CVA tenderness Back/Pelvis: COMMON NORMALS: no CVA tenderness, thoracic and lumbar spine normal to inspection, no thoracic nor lumbar tenderness and thoraco-lumbar ROM normal Extremity: COMMON NORMALS: normal to inspection, full ROM, capillary refill normal, no joint enlargement and no pedal edema GENERAL: Yes normal exam except as noted Neuro: COMMON NORMALS: patient oriented x3, CN's II-XII intact bilaterally, moves all extremities, no focal motor deficits, no sensory deficits noted and gait normal SENSORIUM/ORIENTATION: Yes alert, Yes oriented to person, Yes oriented to place and Yes oriented to time MENINGEAL SIGNS: Yes no meningeal signs Psych: COMMON NORMALS: mental status grossly normal, Normal thought process present, cooperative, normal affect and speech normal APPEARANCE: Yes well kempt ATTITUDE: Yes calm SPEECH: Yes normal speech THOUGHT PROCESS: Normal thought process present Skin: COMMON NORMALS: no rashes or lesions noted GENERAL SKIN EXAM: no rashes or lesions noted Course Vital Signs: Vital signs: Vital Signs Temperature 98.1 F 12/10/20 12:41 Pulse Rate 66 12/10/20 17:11 Respiratory Rate 13 12/10/20 17:11 Blood Pressure 113/60 12/10/20 12:41 Pulse Oximetry 96 12/10/20 17:11 MDM - Abdominal Pain MDM Narrative: Medical decision making narrative: The patient came in with abdominal pain nonspecific and constipation as well as complaining of external hemorrhoids. She does have external hemorrhoids on exam and I will send her home with Anusol. Recommended she follow-up with a GI doctor. Placed a case management referral to help her get an appointment. Also CT shows she has colitis. She has diverticulitis in the past. I recommended she take Cipro and Flagyl for 10 days and return to the ER with worsening symptoms. Follow-up with primary care doctor next week and set up with GI within a couple weeks. Lab Data: Labs: Lab Results 12/10/20 12/10/20 12/10/20 Range/Units 12:00 13:25 13:25 WBC 8.9 (4.0-10.0) 10^3/ uL RBC 4.84 (4.1-5.3) 10^6/u L Hgb 12.7 (11.5-15.3) g/dL Hct 39.8 (37.0-47.0) % MCV 82.2 (81-99) fL MCH 26.2 L (28.0-34.0) pg MCHC 31.9 (30.0-36.0) g/dL RDW 15.4 H (12.1-15.1) % Plt Count 437 H (130-400) 10^3/c mm MPV 9.1 (7.4-10.4) fL Neut % (Auto) 77.2 % Lymph % (Auto) 9.7 % Grainger % (Auto) 9.2 % Eos % (Auto) 2.2 % Baso % (Auto) 0.9 % Neut # (Auto) 6.90 (1.8-7.7) 10^3/u L Lymph # (Auto) 0.9 (0.8-4.8) 10^3/u L Grainger # (Auto) 0.8 (0.2-0.9) 10^3/u L Eos # (Auto) 0.2 (0.0-0.8) 10^3/u L Baso # (Auto) 0.1 (0.0-0.1) 10^3/u L Nucleated RBC % (a uto) 0 % Nucleated RBCs # 0.0 /100WBC Sodium 137 (136-145) mmol/L Potassium 4.5 (3.5-5.1) mmol/L Chloride 99 (98-107) mmol/L Carbon Dioxide 26 (22-29) mmol/L Anion Gap 16.5 (5-19) BUN 10 (8-23) mg/dL Creatinine 0.8 (0.5-0.9) mg/dL GFR Calculation 70.9 L (90-130) mL/min Glucose 83 (65-115) mg/dL Calculated Osmolal ity 282 L (285-295) mOsm/k g Lactate (0.5-2.2) mmol/L Calcium 8.8 (8.5-10.5) mg/dL Total Bilirubin 0.3 (0.15-1.2) mg/dL AST 15 (0-32) U/L ALT 14 (0-33) U/L Alkaline Phosphata se 94 (35-105) IU/L Total Protein 6.7 (6.6-8.7) g/dL Albumin 3.4 L (3.5-5.2) g/dL Globulin 3.3 (1.3-4.6) g/dL Lipase 14 (13-60) U/L Urine Color (Yellow) Urine Appearance (CLEAR) Urine pH (5-7) Ur Specific Gravit y (1.005-1.030) Urine Protein (Negative) Urine Glucose (UA) (Normal) Urine Ketones (Negative) Urine Blood (Negative) Urine Nitrate (Negative) Urine Bilirubin (Negative) Urine Urobilinogen (Negative) mg/dL Ur Leukocyte Carol ase (Negative) Urine RBC (0-2) /hpf Urine WBC (0-5) /hpf Ur Squamous Epith Cells (0-5) /hpf Amorphous Sediment Urine Bacteria (NONE) /hpf Hyaline Casts /lpf Urine Mucus /hpf SARS-CoV-2 Ag (Rap id) Negative (Negative) 12/10/20 12/10/20 Range/Units 13:25 15:06 WBC (4.0-10.0) 10^3/ uL RBC (4.1-5.3) 10^6/u L Hgb (11.5-15.3) g/dL Hct (37.0-47.0) % MCV (81-99) fL MCH (28.0-34.0) pg MCHC (30.0-36.0) g/dL RDW (12.1-15.1) % Plt Count (130-400) 10^3/c mm MPV (7.4-10.4) fL Neut % (Auto) % Lymph % (Auto) % Grainger % (Auto) % Eos % (Auto) % Baso % (Auto) % Neut # (Auto) (1.8-7.7) 10^3/u L Lymph # (Auto) (0.8-4.8) 10^3/u L Grainger # (Auto) (0.2-0.9) 10^3/u L Eos # (Auto) (0.0-0.8) 10^3/u L Baso # (Auto) (0.0-0.1) 10^3/u L Nucleated RBC % (a uto) % Nucleated RBCs # /100WBC Sodium (136-145) mmol/L Potassium (3.5-5.1) mmol/L Chloride (98-107) mmol/L Carbon Dioxide (22-29) mmol/L Anion Gap (5-19) BUN (8-23) mg/dL Creatinine (0.5-0.9) mg/dL GFR Calculation (90-130) mL/min Glucose (65-115) mg/dL Calculated Osmolal ity (285-295) mOsm/k g Lactate 0.8 (0.5-2.2) mmol/L Calcium (8.5-10.5) mg/dL Total Bilirubin (0.15-1.2) mg/dL AST (0-32) U/L ALT (0-33) U/L Alkaline Phosphata se (35-105) IU/L Total Protein (6.6-8.7) g/dL Albumin (3.5-5.2) g/dL Globulin (1.3-4.6) g/dL Lipase (13-60) U/L Urine Color Yellow (Yellow) Urine Appearance Hazy A (CLEAR) Urine pH 7 (5-7) Ur Specific Gravit y 1.010 (1.005-1.030) Urine Protein Neg (Negative) Urine Glucose (UA) Norm (Normal) Urine Ketones 1+ H (Negative) Urine Blood 2+ H (Negative) Urine Nitrate Negative (Negative) Urine Bilirubin 1+ H (Negative) Urine Urobilinogen 1 H (Negative) mg/dL Ur Leukocyte Carol ase Trace H (Negative) Urine RBC 10-15 H (0-2) /hpf Urine WBC 5-10 H (0-5) /hpf Ur Squamous Epith Cells 0-4 H (0-5) /hpf Amorphous Sediment Not Reportable Urine Bacteria 1+ H (NONE) /hpf Hyaline Casts 5-10 H /lpf Urine Mucus 2+ /hpf SARS-CoV-2 Ag (Rap id) (Negative) Discharge Plan Discharge Patient Disposition: Home Clinical Impression: Colitis Condition: Stable Prescriptions: New ciprofloxacin HCl 500 mg tablet 500 mg PO Q12H Qty: 20 RF: 0 Flagyl 500 mg tablet 500 mg PO Q8H 10 Days Qty: 30 RF: 0 Anusol-HC 2.5 % cream with perineal applicator 1 applic IA Q8H PRN (Reason: hemorrhoids) 21 Days RF: 0 Held tizanidine 4 mg tablet 4 mg PO TID PRN (Reason: muscle spasticity) Qty: 90 RF: 1 Hold Instructions: Resume on 12/20/20. hold while taking ciprofloxacin Discontinued cefuroxime axetil 500 mg tablet 500 mg PO BID Qty: 60 RF: 2 No Action docusate sodium [Colace] 100 mg capsule 100 mg PO DAILY RF: 0 Adult Probiotic 3 billion cell capsule 3,000 mmu cells PO DAILY RF: 0 aspirin [Adult Low Dose Aspirin] 81 mg tablet,delayed release (DR/EC) 81 mg PO DAILY 30 Days Qty: 30 RF: 3 ibuprofen 800 mg tablet 800 mg PO TID PRN (Reason: fever or pain) RF: 0 levothyroxine 112 mcg capsule 112 mcg PO DAILY RF: 0 flecainide 50 mg tablet 50 mg PO Q12H 30 Days Qty: 60 RF: 5 metoprolol tartrate 50 mg tablet 50 mg PO BID 30 Days Qty: 60 RF: 5 hydrocodone-acetaminophen 10-325 mg tablet 1 tab PO TID PRN (Reason: pain) 30 Days Qty: 90 RF: 0 hydrocodone-acetaminophen 10-325 mg tablet 1 tab PO TID PRN (Reason: pain) 30 Days Qty: 90 RF: 0 Lumigan 0.01 % drops 2 drop ophthalmic (eye) BEDTIME RF: 0 furosemide [Lasix] 20 mg tablet 20 mg PO DAILY PRN (Reason: edema) Qty: 30 RF: 2 loratadine 10 mg capsule 10 mg PO DAILY Qty: 90 RF: 2 esomeprazole magnesium [Nexium] 40 mg capsule,delayed release(DR/EC) 40 mg PO DAILY Qty: 30 RF: 5 montelukast 10 mg tablet 10 mg PO DAILY Qty: 30 RF: 5 solifenacin [Vesicare] 10 mg tablet 10 mg PO DAILY Qty: 30 RF: 5 allopurinol 100 mg tablet 100 mg PO DAILY Qty: 30 RF: 0 potassium chloride 10 mEq tablet,ER particles/crystals 10 meq PO DAILY Qty: 30 RF: 0 Discharge Orders: Discharge ED (Routine); Ordered 12/10/20 Ordered By: Santiago Boyer Referrals: Dandre Mcintyre MD [Primary Care Provider] - Discharge Diet: Advance as tolerated Discharge Activity: Resume usual activity Patient Instructions: Opioid Safety Activity Restrictions/Additional Instructions: You have belly pain which is most likely caused by colitis and hemorrhoids. Please use the Anusol as directed to help with your symptoms for the hemorrhoids and follow-up with a GI doctor to discuss further. You must keep your stool soft as even one constipated bowel will cause them to flareup. Return to the ER at any times with worsening symptoms. Also you have a infection of your colon called colitis. Please take the ciprofloxacin and Flagyl to help with this infection and discuss with your primary care doctor next week. Return to the ER at anytime with worsening symptoms. 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
[2020-12-10 14:00] LABS: Basophils # 0.1 10^3/uL (0.0-0.1); Basophils % 0.9 %; Eosinophils # 0.2 10^3/uL (0.0-0.8); Eosinophils % 2.2 %; Hematocrit 39.8 % (37.0-47.0); Hemoglobin 12.7 g/dL (11.5-15.3); Lymphocytes # 0.9 10^3/uL (0.8-4.8); Lymphocytes % 9.7 %; Mean Corpuscular HGB Conc 31.9 g/dL (30.0-36.0); Mean Corpuscular Hemoglobin 26.2 pg (28.0-34.0); Mean Corpuscular Volume 82.2 fL (81-99); Mean Platelet Volume 9.1 fL (7.4-10.4); Monocytes # 0.8 10^3/uL (0.2-0.9); Monocytes % 9.2 %; Neutrophils % 77.2 %; Nucleated Red Blood Cells % 0 %; Platelet Count 437 10^3/cmm (130-400); Red Blood Count 4.84 10^6/uL (4.1-5.3); Red Cell Distribution Width 15.4 % (12.1-15.1); White Blood Count 8.9 10^3/uL (4.0-10.0)
[2020-12-10 14:28] LABS: Alanine Aminotransferase 14 U/L (0-33); Albumin Level 3.4 g/dL (3.5-5.2); Alkaline Phosphatase 94 IU/L (35-105); Anion Gap 16.5 (5-19); Aspartate Amino Transferase 15 U/L (0-32); Blood Urea Nitrogen 10 mg/dL (8-23); Calcium 8.8 mg/dL (8.5-10.5); Carbon Dioxide 26 mmol/L (22-29); Chloride 99 mmol/L (98-107); Globulin 3.3 g/dL (1.3-4.6); Glomerular Filtration Rate 70.9 mL/min (90-130); Glucose 83 mg/dL (65-115); Lactate (Lactic Acid level) 0.8 mmol/L (0.5-2.2); Lipase 14 U/L (13-60); Osmolality Calculated 282 mOsm/kg (285-295); Potassium 4.5 mmol/L (3.5-5.1); Sodium 137 mmol/L (136-145); Total Bilirubin 0.3 mg/dL (0.15-1.2); Total Protein 6.7 g/dL (6.6-8.7)
[2020-12-10 16:05] LABS: Urine Appearance Hazy (CLEAR); Urine Color Yellow (Yellow); pH Urine 7 (5-7)
[2020-12-10 16:06] LABS: Add Urine Microscopic? YES; Bilirubin Urine 1+ (Negative); Blood Urine 2+ (Negative); Glucose Urine UA Norm (Normal); Ketones Urine 1+ (Negative); Leukocyte Esterase Urine Trace (Negative); Nitrate Urine Negative (Negative); Protein Urine Neg (Negative); Urobilinogen Urine 1 mg/dL (Negative)
[2020-12-10 16:08] LABS: Mucus Urine 2+ /hpf; Squamous Epithelial Cell Urine 0-4 /hpf (0-5)
[2020-12-10 16:09] LABS: Add Urine Culture? Yes; Bacteria Urine 1+ /hpf
[2020-12-10 17:01] LABS: SARS Covid-2 Antigen Negative (Negative)
[2020-12-10] MEDS: metroNIDAZOLE 500 MG Tablet PO (17:06)
[2020-12-10] MEDS: ciprofloxacin 500 mg Tablet PO (17:06)
[2020-12-10 17:11] VITALS: PULSE 66; RESP 13; O2SAT 96
--- NOTE | 2020-12-12 16:20 | DCPLANNER ---
automotive center manager had message to schedule a follow up appointment for patient with general surgery. automotive center manager emailed patients information to both Cheryl and Anastasia at [facility] General Surgery. Patients information will be printed and reviewed. Clinic will call patient with appointment information.
--- NOTE | 2020-12-14 13:03 | DCPLANNER ---
probation manager had message to schedule a follow up appointment with Dr. Ulloa. probation manager called the office of Dr. Ulloa, spoke with Catherine a follow up appointment was scheduled for December at 2:[address] Ulloa. Clinic will call patient with appointment information.
== END 2020-12-10 17:17 | disposition home or self-care (01) ==
PROVIDERS: Emergency Provider Family Medicine; PCP Family Medicine
DX: K52.9 Noninfective gastroenteritis and colitis, unspecified (principal); K64.4 Residual hemorrhoidal skin tags; I10 Essential (primary) hypertension; E78.5 Hyperlipidemia, unspecified; E03.9 Hypothyroidism, unspecified; E11.9 Type 2 diabetes mellitus without complications
CPT/HCPCS: 74176; 80053; 81001; 83605; 83690; 85025; 87086; 87426; 99283

== ENCOUNTER 2020-12-12 11:50 | Emergency (ER) | payer MEDICARE, MEDICAID, SELFPAY ==
--- NOTE | 2020-12-12 12:08 | XRR_ITS ---
PROCEDURE INFORMATION: Exam: XR Chest Exam date and time: 12/12/2020 12:08 PM Age: 70 years old Clinical indication: Prior surgery; Patient HX: Cough, irregular heartbeat, HX of breast cancer TECHNIQUE: Imaging protocol: XR of the chest. Views: 1 view. COMPARISON: CT abdomen pelvis con [id number] 12/10/2020 3:09 PM FINDINGS: Lungs: Unremarkable. No consolidation. Pleural spaces: Unremarkable. No pleural effusion. No pneumothorax. Heart/Mediastinum: Stable cardiomediastinal silhouette. Bones/joints: Degenerative changes of the spine seen. XR/XR chest 1V portable [id number] IMPRESSION: No acute findings.
--- NOTE | 2020-12-12 12:09 | ECG_ITS ---
[facility] ED Test Date: 2020-12-12 Pat Name: Nicolette Smallwood Department: Room: Gender: Female [employer] Worker: : 1950 Requested By: Edison Rosenthal Order Number: [id number] [place] MD: Sabi Laguna M.D. Measurements Intervals [place] Rate: 137 P: 249 AR: 162 QRS: 29 QRSD: 116 T: 70 QT: 298 QTc: 451 Interpretive Statements SUPRAVENTRICULAR TACHYCARDIA MODERATE INTRAVENTRICULAR CONDUCTION DELAY [110+ ms QRS DURATION] ABNORMAL RHYTHM ECG Compared to ECG 01/30/2020 15:58:23 Intraventricular conduction delay now present Ectopic atrial rhythm no longer present Electronically Signed On 12-30-2020 18:23:10 CDT by Sabi Laguna M.D. [email or web address]
[2020-12-12 12:11] VITALS: BP 137/100; PULSE 146; RESP 28; TEMP 36.6; O2SAT 100; BMI 28.2
--- NOTE | 2020-12-12 12:12 | ED_ITS ---
HPI - Chest Pain General: Chief Complaint: Chest Pain Stated Complaint: Chest Pain, weak Time Seen by Provider: 12/12/20 12:02 History of Present Illness: HPI narrative: This patient is a 70-year-old female with a history of sinus tachycardia presents to the emergency department for palpitations shortness of breath. Patient states she has felt nauseous for the past couple days but did not take her morning medications which included metoprolol and flecainide for SVT. Patient states around 11 she started having some SVT symptoms and palpitations and at that time she did take her medications. Upon arrival in the emergency department patient had a sinus tachycardic rhythm on EKG with a heart rate of 137. And the rate would get into the around 140. P.o. tablets and IV and lab draw. Patient's heart rate spontaneously converted now is a sinus rhythm with a heart rate of 70. Patient states she normally takes her medications first thing in the morning but did not this morning because of nausea did not take them till about an hour ago. We will do medical evaluation treat as needed we will continue to monitor the patient's heart rate. MD complaint: chest discomfort Pertinent past history: coronary artery disease Timing of current episode: constant Prior episodes: Yes Pain radiation: none Severity: moderate Relieving factors: medication-other Exacerbating factors: nothing Associated symptoms: Reports dyspnea and palpitations; Deny abdominal pain, fever(s), nausea or vomiting Treatment prior to arrival: none Review of Systems General: Reports: 10 or more systems reviewed and unremarkable except in HPI and below Const: Denies: fever(s), chills, body aches or fatigue Eyes: Denies: change in vision or blurry vision ENMT: Denies: throat pain, hoarseness or mouth pain Card: Reports: palpitations and dyspnea on exertion Resp: Reports: dyspnea GI: Denies: abdominal pain, nausea or vomiting : Denies: flank pain, difficulty voiding, dysuria, urinary frequency, urinary urgency or urinary hesitancy Musc: Denies: neck pain, back pain, extremity pain, extremity swelling, joint pain, joint swelling, joint redness, joint warmth or limited range of motion Skin/Breast: Denies: rash, pruritus, erythema or skin tenderness Neuro: Denies: headache(s), numbness in extremities or weakness in extremities Psych: Denies: anxiety or depression PFSH ED PFSH: Medical History Abnormal cardiovascular stress test Abnormal mammogram Acute bilateral knee pain Acute neck pain Arthritis of knee, left Benign essential HTN Bilateral foot pain Bladder incontinence Bloody diarrhea Change in bowel habit Constipation Diverticular disease Dyslipidemia Elevated blood pressure reading Encounter for long-term use of opiate analgesic Heart murmur Hemorrhoids History of DVT (deep vein thrombosis) History of gout History of shingles Hx of diabetes mellitus HX: breast cancer Hypothyroidism Leg swelling Lumbar paraspinal muscle spasm Pain amplification syndrome Polyneuropathy, unspecified Restless legs syndrome Retrolisthesis of vertebrae Shigellosis, unspecified Spinal stenosis, lumbar region with neurogenic claudication Supraventricular tachycardia Surgical History H/O colonoscopy H/O: hysterectomy History of lumpectomy of left breast Hx of arthroscopy of knee Hx of cataract surgery Family History Mother Diabetes Family/Other Diabetes maternal aunt, nephew Thyroid condition cousin Breast cancer maternal aunt, diagnosed in her 70's or 80's Father Throat cancer Other Cancer Denies family history of Colon cancer Ovarian cancer Clotting disorder Heart disease Hyperlipidemia Anesthesia complication Bleeding disorder Hypertension Uterine cancer Stroke Social History Smoking and tobacco status: never smoked Alcohol intake: never History of recent travel: No Physical Exam Const: COMMON NORMALS: no acute distress, average body habitus, patient oriented x3, no limitations, healthy appearing, alert and well nourished HENMT: COMMON NORMALS: normocephalic, atraumatic, hearing grossly normal bilaterally, external ears normal, EAC's normal, TM's normal bilaterally, Normal external nose present, Normal nasal mucous membranes and turbinates present, moist oral mucous membranes, oropharynx normal, dentition normal and gingiva normal HEAD & SCALP: normocephalic and atraumatic NOSE: Normal external nose present and Normal nasal mucous membranes and turbinates present EXTERNAL EAR: Yes external ears normal EXTERNAL AUDITORY CANAL: EAC's normal TYMPANIC MEMBRANE: TM's normal bilaterally Neck/C-Spine: COMMON NORMALS: full ROM, no lymphadenopathy, supple, no meningeal signs, no JVD, Thyroid normal and No carotid bruits THYROID: Thyroid normal Chest: COMMONS NORMALS: normal inspection of the chest, normal palpation of entire chest wall, normal inspection of the breasts and normal palpation of the breasts Breast/axilla inspection: Yes normal inspection of the breasts BREAST/AXILLA PALPATION: Yes normal palpation of the breasts Resp: COMMON NORMALS: normal respiratory effort, No retractions, No use of accessory muscles, clear to auscultation bilaterally and percussion normal AUSCULTATION: clear to auscultation bilaterally PERCUSSION: percussion normal Cardio: COMMON NORMALS: no JVD, regular rhythm, S1 normal heart sound present, S2 normal heart sound present, No gallops present (Cardio), No clicks present (Cardio), No murmurs present (Cardio), No rub (Cardio) and Peripheral pulses 2+ throughout RATE: tachycardic RHYTHM: regular rhythm HEART SOUNDS: S1 normal heart sound present and S2 normal heart sound present PERIPHERAL PULSES: Peripheral pulses 2+ throughout GI: COMMON NORMALS: Normal to inspection, nondistended, normoactive bowel sounds present, Soft to palpation, non-tender, No hepatosplenomegaly present, no masses and no bruits PALPATION: Yes Soft to palpation and Yes No hepatosplenomegaly present : COMMON NORMALS: Yes no CVA tenderness, Yes normal external appearance, Yes normal appearance of the vagina, Yes normal appearance of the cervix, Yes normal bimanual exam, Yes No adnexal tenderness and Yes no masses BLADDER/KIDNEY EXAM: Yes no CVA tenderness BIMANUAL EXAM - VAGINA & UTERUS: Yes normal bimanual exam Back/Pelvis: COMMON NORMALS: no CVA tenderness, thoracic and lumbar spine normal to inspection, no thoracic nor lumbar tenderness, thoraco-lumbar ROM normal and straight leg raise negative bilaterally Extremity: COMMON NORMALS: normal to inspection, full ROM, capillary refill normal, no joint enlargement, no clubbing, cyanosis or edema, no calf tenderness and no pedal edema Neuro: COMMON NORMALS: patient oriented x3 SENSORIUM/ORIENTATION: Yes alert MENINGEAL SIGNS: Yes no meningeal signs Course Reevaluation(s): Reevaluation #1: Patient doing well no complaints. Blood pressure 128/84 heart rate 66 patient had spontaneous resolution of tachycardia. Incidental finding of UTI. Patient be started on antibiotics. Patient is encouraged to continue all home medications follow-up with primary care physician and cardiology as needed. Time: 14:16 Vital Signs: Vital signs: Vital Signs Temperature 97.8 F 12/12/20 12:49 Pulse Rate 65 12/12/20 13:49 Respiratory Rate 16 12/12/20 13:49 Blood Pressure 105/73 12/12/20 13:49 Pulse Oximetry 93 12/12/20 13:49 MDM - Chest Pain MDM Narrative: Medical decision making narrative: This patient is a 70-year-old female with a history of sinus tachycardia presents to the emergency department for palpitations shortness of breath. Patient states she has felt nauseous for the past couple days but did not take her morning medications which included metoprolol and flecainide for SVT. Patient states around 11 she started having some SVT symptoms and palpitations and at that time she did take her medications. Upon arrival in the emergency department patient had a sinus tachycardic rhythm on EKG with a heart rate of 137. And the rate would get into the around 140. P.o. tablets and IV and lab draw. Patient's heart rate spontaneously converted now is a sinus rhythm with a heart rate of 70. Patient states she normally takes her medications first thing in the morning but did not this morning because of nausea did not take them till about an hour ago. We will do medical evaluation treat as needed we will continue to monitor the patient's heart rate. Patient doing well no complaints. Blood pressure 128/84 heart rate 66 patient had spontaneous resolution of tachycardia. Incidental finding of UTI. Patient be started on antibiotics. Patient is encouraged to continue all home medications follow-up with primary care physician and cardiology as needed. Lab Data: Labs: Lab Results 12/12/20 12/12/20 12/12/20 Range/Units 12:15 12:15 12:15 WBC 9.0 (4.0-10.0) 10^3/ uL RBC 5.33 H (4.1-5.3) 10^6/u L Hgb 13.6 (11.5-15.3) g/dL Hct 43.3 (37.0-47.0) % MCV 81.2 (81-99) fL MCH 25.5 L (28.0-34.0) pg MCHC 31.4 (30.0-36.0) g/dL RDW 15.3 H (12.1-15.1) % Plt Count 488 H (130-400) 10^3/c mm MPV 9.1 (7.4-10.4) fL Neut % (Auto) 74.9 % Lymph % (Auto) 13.2 % [place] % (Auto) 8.8 % Eos % (Auto) 1.7 % Baso % (Auto) 0.8 % Neut # (Auto) 6.74 (1.8-7.7) 10^3/u L Lymph # (Auto) 1.2 (0.8-4.8) 10^3/u L [place] # (Auto) 0.8 (0.2-0.9) 10^3/u L Eos # (Auto) 0.2 (0.0-0.8) 10^3/u L Baso # (Auto) 0.1 (0.0-0.1) 10^3/u L Nucleated RBC % (a uto) 0 % Nucleated RBCs # 0.0 /100WBC PT 15.00 H (12.1-14.9) SECO NDS INR 1.15 (0.8-1.2) APTT 32.5 (23.9-36.7) SECO NDS Sodium 137 (136-145) mmol/L Potassium 3.9 (3.5-5.1) mmol/L Chloride 98 (98-107) mmol/L Carbon Dioxide 22 (22-29) mmol/L Anion Gap 20.9 H (5-19) BUN 7 L (8-23) mg/dL Creatinine 0.8 (0.5-0.9) mg/dL GFR Calculation 70.9 L (90-130) mL/min Glucose 120 H (65-115) mg/dL Calculated Osmolal ity 283 L (285-295) mOsm/k g Calcium 8.7 (8.5-10.5) mg/dL Total Bilirubin 0.3 (0.15-1.2) mg/dL AST 12 (0-32) U/L ALT 12 (0-33) U/L Alkaline Phosphata se 108 H (35-105) IU/L Troponin T Baselin e (0-10) ng/L NT-Pro-B Natriuret Pep 291 H (0-125) pg/mL Total Protein 7.0 (6.6-8.7) g/dL Albumin 3.5 (3.5-5.2) g/dL Globulin 3.5 (1.3-4.6) g/dL Urine Color (Yellow) Urine Appearance (CLEAR) Urine pH (5-7) Ur Specific Gravit y (1.005-1.030) Urine Protein (Negative) Urine Glucose (UA) (Normal) Urine Ketones (Negative) Urine Blood (Negative) Urine Nitrate (Negative) Urine Bilirubin (Negative) Urine Urobilinogen (Negative) mg/dL Ur Leukocyte Carol ase (Negative) Urine RBC (0-2) /hpf Urine WBC (0-5) /hpf Ur Squamous Epith Cells (0-5) /hpf Amorphous Sediment Urine Bacteria (NONE) /hpf 12/12/20 12/12/20 Range/Units 12:15 13:30 WBC (4.0-10.0) 10^3/ uL RBC (4.1-5.3) 10^6/u L Hgb (11.5-15.3) g/dL Hct (37.0-47.0) % MCV (81-99) fL MCH (28.0-34.0) pg MCHC (30.0-36.0) g/dL RDW (12.1-15.1) % Plt Count (130-400) 10^3/c mm MPV (7.4-10.4) fL Neut % (Auto) % Lymph % (Auto) % [place] % (Auto) % Eos % (Auto) % Baso % (Auto) % Neut # (Auto) (1.8-7.7) 10^3/u L Lymph # (Auto) (0.8-4.8) 10^3/u L [place] # (Auto) (0.2-0.9) 10^3/u L Eos # (Auto) (0.0-0.8) 10^3/u L Baso # (Auto) (0.0-0.1) 10^3/u L Nucleated RBC % (a uto) % Nucleated RBCs # /100WBC PT (12.1-14.9) SECO NDS INR (0.8-1.2) APTT (23.9-36.7) SECO NDS Sodium (136-145) mmol/L Potassium (3.5-5.1) mmol/L Chloride (98-107) mmol/L Carbon Dioxide (22-29) mmol/L Anion Gap (5-19) BUN (8-23) mg/dL Creatinine (0.5-0.9) mg/dL GFR Calculation (90-130) mL/min Glucose (65-115) mg/dL Calculated Osmolal ity (285-295) mOsm/k g Calcium (8.5-10.5) mg/dL Total Bilirubin (0.15-1.2) mg/dL AST (0-32) U/L ALT (0-33) U/L Alkaline Phosphata se (35-105) IU/L Troponin T Baselin e 6 (0-10) ng/L NT-Pro-B Natriuret Pep (0-125) pg/mL Total Protein (6.6-8.7) g/dL Albumin (3.5-5.2) g/dL Globulin (1.3-4.6) g/dL Urine Color Yellow (Yellow) Urine Appearance Clear (CLEAR) Urine pH 7 (5-7) Ur Specific Gravit y 1.010 (1.005-1.030) Urine Protein 1+ H (Negative) Urine Glucose (UA) Norm (Normal) Urine Ketones 1+ H (Negative) Urine Blood 2+ H (Negative) Urine Nitrate Negative (Negative) Urine Bilirubin Neg (Negative) Urine Urobilinogen Neg (Negative) mg/dL Ur Leukocyte Carol ase 1+ H (Negative) Urine RBC 10-15 H (0-2) /hpf Urine WBC 0-4 H (0-5) /hpf Ur Squamous Epith Cells 0-4 H (0-5) /hpf Amorphous Sediment Not Reportable Urine Bacteria 4+ H (NONE) /hpf EKG Data^: EKG 1: Attestation: I personally reviewed and interpreted this EKG as follows: EKG interpretation date: 12/12/20 EKG interpretation time: 12:06 Prior EKG tracings: available for review Ischemic changes: non-specific ST-T wave changes Interpretation: Sinus tachycardia heart rate 137 moderate interventricular conduction delay. Nonspecific EKG changes. Discharge Plan Discharge Patient Disposition: Home Clinical Impression: Paroxysmal sinus tachycardia, Nausea, Palpitations, UTI (urinary tract infection) Condition: Stable Prescriptions: New cephalexin 500 mg capsule 500 mg PO BID 7 Days Qty: 14 RF: 0 No Action tizanidine 4 mg tablet 4 mg PO TID PRN (Reason: muscle spasticity) Qty: 90 RF: 1 Hold Instructions: Resume on 12/20/20. hold while taking ciprofloxacin docusate sodium [Colace] 100 mg capsule 100 mg PO DAILY RF: 0 Adult Probiotic 3 billion cell capsule 3,000 mmu cells PO DAILY RF: 0 aspirin [Adult Low Dose Aspirin] 81 mg tablet,delayed release (DR/EC) 81 mg PO DAILY 30 Days Qty: 30 RF: 3 ibuprofen 800 mg tablet 800 mg PO TID PRN (Reason: fever or pain) RF: 0 levothyroxine 112 mcg capsule 112 mcg PO DAILY RF: 0 flecainide 50 mg tablet 50 mg PO Q12H 30 Days Qty: 60 RF: 5 metoprolol tartrate 50 mg tablet 50 mg PO BID 30 Days Qty: 60 RF: 5 hydrocodone-acetaminophen 10-325 mg tablet 1 tab PO TID PRN (Reason: pain) 30 Days Qty: 90 RF: 0 Lumigan 0.01 % drops 2 drop ophthalmic (eye) BEDTIME RF: 0 furosemide [Lasix] 20 mg tablet 20 mg PO DAILY PRN (Reason: edema) Qty: 30 RF: 2 loratadine 10 mg capsule 10 mg PO DAILY Qty: 90 RF: 2 esomeprazole magnesium [Nexium] 40 mg capsule,delayed release(DR/EC) 40 mg PO DAILY Qty: 30 RF: 5 montelukast 10 mg tablet 10 mg PO DAILY Qty: 30 RF: 5 solifenacin [Vesicare] 10 mg tablet 10 mg PO DAILY Qty: 30 RF: 5 allopurinol 100 mg tablet 100 mg PO DAILY Qty: 30 RF: 0 potassium chloride 10 mEq tablet,ER particles/crystals 10 meq PO DAILY Qty: 30 RF: 0 ciprofloxacin HCl 500 mg tablet 500 mg PO Q12H Qty: 20 RF: 0 metronidazole [Flagyl] 500 mg tablet 500 mg PO Q8H 10 Days Qty: 30 RF: 0 hydrocortisone [Anusol-HC] 2.5 % cream with perineal applicator 1 applic RI Q8H PRN (Reason: hemorrhoids) 21 Days RF: 0 ondansetron HCl 4 mg tablet 4 mg PO Q4H RF: 0 Discharge Orders: Discharge ED (Routine); Ordered 12/12/20 Ordered By: Edison Rosenthal Referrals: Dandre Mcintyre MD [Primary Care Provider] - Discharge Diet: Advance as tolerated Discharge Activity: Resume usual activity Patient Instructions: Opioid Safety Activity Restrictions/Additional Instructions: Encourage p.o. fluids. Take medications as instructed. Continue all home medications as scheduled. Follow-up with primary care physician or PCP cardiology as needed. Return to the emergency department symptoms fail to improve or worsen. Coding Level of Care Code ED Rock Crusher Operator for Chg Fwd Exam Comprehensive
[2020-12-12 12:22] LABS: Basophils # 0.1 10^3/uL (0.0-0.1); Basophils % 0.8 %; Eosinophils # 0.2 10^3/uL (0.0-0.8); Eosinophils % 1.7 %; Hematocrit 43.3 % (37.0-47.0); Hemoglobin 13.6 g/dL (11.5-15.3); Lymphocytes # 1.2 10^3/uL (0.8-4.8); Lymphocytes % 13.2 %; Mean Corpuscular HGB Conc 31.4 g/dL (30.0-36.0); Mean Corpuscular Hemoglobin 25.5 pg (28.0-34.0); Mean Corpuscular Volume 81.2 fL (81-99); Mean Platelet Volume 9.1 fL (7.4-10.4); Monocytes # 0.8 10^3/uL (0.2-0.9); Monocytes % 8.8 %; Neutrophils # 6.74 10^3/uL (1.8-7.7); Neutrophils % 74.9 %; Nucleated Red Blood Cells % 0 %; Platelet Count 488 10^3/cmm (130-400); Red Blood Count 5.33 10^6/uL (4.1-5.3); Red Cell Distribution Width 15.3 % (12.1-15.1)
[2020-12-12 12:42] LABS: INR 1.15 (0.8-1.2)
[2020-12-12 12:43] LABS: Partial Thromboplastin Time 32.5 SECONDS (23.9-36.7)
[2020-12-12 12:49] VITALS: BP 120/86; PULSE 74; RESP 18; TEMP 36.6; O2SAT 98
[2020-12-12 12:52] LABS: Troponin(5th) Baseline 6 ng/L (0-10)
[2020-12-12 12:54] LABS: Alanine Aminotransferase 12 U/L (0-33); Albumin Level 3.5 g/dL (3.5-5.2); Alkaline Phosphatase 108 IU/L (35-105); Anion Gap 20.9 (5-19); Aspartate Amino Transferase 12 U/L (0-32); Blood Urea Nitrogen 7 mg/dL (8-23); Calcium 8.7 mg/dL (8.5-10.5); Carbon Dioxide 22 mmol/L (22-29); Chloride 98 mmol/L (98-107); Creatinine Clr Calc Pharmacy 69.5526; Globulin 3.5 g/dL (1.3-4.6); Glomerular Filtration Rate 70.9 mL/min (90-130); Glucose 120 mg/dL (65-115); NT Pro B Type Natriuretic Pept 291 pg/mL (0-125); Osmolality Calculated 283 mOsm/kg (285-295); Potassium 3.9 mmol/L (3.5-5.1); Sodium 137 mmol/L (136-145); Total Bilirubin 0.3 mg/dL (0.15-1.2)
[2020-12-12 13:49] VITALS: BP 105/73; PULSE 65; RESP 16; O2SAT 93
[2020-12-12 14:00] VITALS: BP 110/76; PULSE 67; RESP 16; TEMP 36.6; O2SAT 93
[2020-12-12 14:11] LABS: Add Urine Microscopic? YES; Bilirubin Urine Neg (Negative); Blood Urine 2+ (Negative); Glucose Urine UA Norm (Normal); Ketones Urine 1+ (Negative); Leukocyte Esterase Urine 1+ (Negative); Nitrate Urine Negative (Negative); Protein Urine 1+ (Negative); Urine Appearance Clear (CLEAR); Urine Color Yellow (Yellow); Urobilinogen Urine Neg (Negative); pH Urine 7 (5-7)
[2020-12-12 14:12] LABS: Add Urine Culture? Yes; Bacteria Urine 4+ /hpf; Squamous Epithelial Cell Urine 0-4 /hpf (0-5); WBC Urine 0-4 /hpf (0-5)
[2020-12-12 14:15] VITALS: BP 110/76; PULSE 67; RESP 16; TEMP 36.6; O2SAT 93
[2020-12-12 14:23] VITALS: BP 109/77; PULSE 65; RESP 20; O2SAT 96
--- NOTE | 2020-12-30 14:50 | DCPLANNER ---
Patient had a follow up appointment scheduled for 12.22.[address] Ulloa - appointment was cancelled.
== END 2020-12-12 14:20 | disposition home or self-care (01) ==
PROVIDERS: Emergency Provider Emergency Medicine; PCP Family Medicine
DX: I47.1 Supraventricular tachycardia (principal); R00.2 Palpitations; R11.0 Nausea; N39.0 Urinary tract infection, site not specified; Z79.82 Long term (current) use of aspirin; I10 Essential (primary) hypertension; E78.5 Hyperlipidemia, unspecified; E11.9 Type 2 diabetes mellitus without complications; Z85.3 Personal history of malignant neoplasm of breast
CPT/HCPCS: 71045; 80053; 81001; 83880; 84484; 85025; 85610; 85730; 87086; 93005; 99283

== ENCOUNTER 2020-12-17 10:36 | Emergency (ER) | payer MEDICARE, MEDICAID, SELFPAY ==
[2020-12-17 10:46] VITALS: BP 99/65; PULSE 73; RESP 13; O2SAT 94; BMI 28.2
[2020-12-17 11:04] VITALS: BP 99/65; PULSE 75; RESP 13; O2SAT 95
--- NOTE | 2020-12-17 11:07 | ECG_ITS ---
[facility] ED Test Date: 2020-12-17 Pat Name: Nicolette Smallwood Department: Room: Gender: Female Ict Managers: : 1950 Requested By: Yosef Courtney Order Number: [id number] Alma MD: Sabi Laguna M.D. Measurements Intervals [place] Rate: 70 P: 80 DC: 191 QRS: -10 QRSD: 112 T: 51 QT: 424 QTc: 460 Interpretive Statements SINUS RHYTHM MODERATE INTRAVENTRICULAR CONDUCTION DELAY [110+ ms QRS DURATION] Compared to ECG 12/12/2020 12:06:47 Sinus tachycardia no longer present Electronically Signed On 12-22-2020 9:39:39 CDT by Sabi Laguna M.D. [id number]
--- NOTE | 2020-12-17 11:08 | XRR_ITS ---
PROCEDURE INFORMATION: Exam: XR Chest Exam date and time: 12/17/2020 11:08 AM Age: 70 years old Clinical indication: Dyspnea/cough TECHNIQUE: Imaging protocol: XR of the chest. Views: 1 view. COMPARISON: CR XR chest 1V portable [id number] 12/12/2020 12:15 PM FINDINGS: Lungs: No pneumonia or pulmonary edema. Calcified right hilar lymph nodes from prior granulomatous disease. Pleural spaces: No pleural effusion or pneumothorax. Heart/Mediastinum: The cardiac silhouette is not enlarged. The mediastinal contours are normal. Bones/joints: There are multilevel bridging osteophytes in the spine. XR/XR chest 1V portable [id number] IMPRESSION: No acute finding.
--- NOTE | 2020-12-17 11:16 | W.ED.GENADLT ---
HPI - General Adult General: Chief complaint: General Medical Stated complaint: RAPID HEART RATE Time Seen by Provider: 12/17/20 10:42 History of Present Illness: HPI narrative: 70-year-old female presents emergency room via EMS. At home she was having heart rates into the 180s. She has had this problem before and actually was even here earlier this week with similar symptoms.Additionally 1 week ago she was seen and had a CT of the abdomen done that showed colitis. There was no clear evidence of diverticulitis. She was started on oral antibiotics and continues to take both. EMS found her to be in SVT when he first arrived she converted on the first dose of adenosine. Onset (ago): minute(s) Location: chest Radiation: non-radiation Severity: mild Relieving factors: medication Exacerbating factors: none Associated symptoms: Reports decreased appetite and palpitations; Deny chest pain, confusion, cough, diaphoresis, dyspnea, fevers/chills, headache(s), malaise, nausea, rash, seizures, short of breath, syncope, vomiting or weakness Treatments prior to arrival: none Review of Systems Const: Denies: malaise or diaphoresis ENMT: Denies: throat pain, ear or mastoid pain, nasal discharge or nasal congestion Card: Reports: palpitations; Denies: chest pain or syncope Resp: Denies: dyspnea GI: Denies: nausea or vomiting : Denies: flank pain, difficulty voiding, dysuria, urinary frequency or urinary urgency Skin/Breast: Denies: rash Neuro: Denies: headache(s) or confusion PFS ED PFSH: Medical History Abnormal cardiovascular stress test Abnormal mammogram Acute bilateral knee pain Acute neck pain Arthritis of knee, left Benign essential HTN Bilateral foot pain Bladder incontinence Bloody diarrhea Change in bowel habit Constipation Diverticular disease Dyslipidemia Elevated blood pressure reading Encounter for long-term use of opiate analgesic Heart murmur Hemorrhoids History of DVT (deep vein thrombosis) History of gout History of shingles Hx of diabetes mellitus HX: breast cancer Hypothyroidism Leg swelling Lumbar paraspinal muscle spasm Pain amplification syndrome Polyneuropathy, unspecified Restless legs syndrome Retrolisthesis of vertebrae Shigellosis, unspecified Spinal stenosis, lumbar region with neurogenic claudication Supraventricular tachycardia Surgical History H/O colonoscopy H/O: hysterectomy History of lumpectomy of left breast Hx of arthroscopy of knee Hx of cataract surgery Family History Mother Diabetes Family/Other Diabetes maternal aunt, nephew Thyroid condition cousin Breast cancer maternal aunt, diagnosed in her 70's or 80's Father Throat cancer Other Cancer Denies family history of Colon cancer Ovarian cancer Clotting disorder Heart disease Hyperlipidemia Anesthesia complication Bleeding disorder Hypertension Uterine cancer Stroke Social History Smoking and tobacco status: never smoked Alcohol intake: never History of recent travel: No Physical Exam Const: COMMON NORMALS: no acute distress GENERAL APPEARANCE: cooperative and comfortable HENMT: COMMON NORMALS: normocephalic, atraumatic and hearing grossly normal bilaterally HEAD & SCALP: normocephalic and atraumatic Neck/C-Spine: COMMON NORMALS: no JVD Resp: COMMON NORMALS: normal respiratory effort, No retractions, No use of accessory muscles and clear to auscultation bilaterally AUSCULTATION: clear to auscultation bilaterally Cardio: COMMON NORMALS: no JVD, regular rate, regular rhythm and No murmurs present (Cardio) RATE: regular rate RHYTHM: regular rhythm GI: COMMON NORMALS: Soft to palpation and No hepatosplenomegaly present AUSCULTATION: Yes normoactive bowel sounds PALPATION: Yes Soft to palpation, No Tenderness to palpation present (GI), No Guarding due to palpation present (GI) and Yes No hepatosplenomegaly present Extremity: COMMON NORMALS: normal to inspection, capillary refill normal, no clubbing, cyanosis or edema, no calf tenderness and no pedal edema Skin: COMMON NORMALS: no rashes or lesions noted GENERAL SKIN EXAM: no rashes or lesions noted Course Vital Signs: Vital signs: Vital Signs Pulse Rate 75 12/17/20 11:04 Respiratory Rate 13 12/17/20 11:04 Blood Pressure 99/65 12/17/20 11:04 Pulse Oximetry 95 12/17/20 11:04 MDM - General Adult MDM Narrative: Medical decision making narrative: Reviewed EKG. Initial EKG in the ER showed a sinus rhythm with no acute ST changes noted patient has been monitored for a time she continues to be mildly bradycardic and asymptomatic. We will go ahead and discharge home continue previously prescribed medications return if has problems follow-up with cardiology next week. Lab Data: Labs: Lab Results 12/17/20 12/17/20 12/17/20 Range/Units 11:35 11:35 11:35 WBC 7.9 (4.0-10.0) 10^3/ uL RBC 4.38 (4.1-5.3) 10^6/u L Hgb 11.3 L (11.5-15.3) g/dL Hct 35.4 L (37.0-47.0) % MCV 80.8 L (81-99) fL MCH 25.8 L (28.0-34.0) pg MCHC 31.9 (30.0-36.0) g/dL RDW 15.7 H (12.1-15.1) % Plt Count 392 (130-400) 10^3/c mm MPV 8.9 (7.4-10.4) fL Neut % (Auto) 78.4 % Lymph % (Auto) 10.5 % [place] % (Auto) 8.6 % Eos % (Auto) 1.3 % Baso % (Auto) 0.6 % Neut # (Auto) 6.17 (1.8-7.7) 10^3/u L Lymph # (Auto) 0.8 (0.8-4.8) 10^3/u L [place] # (Auto) 0.7 (0.2-0.9) 10^3/u L Eos # (Auto) 0.1 (0.0-0.8) 10^3/u L Baso # (Auto) 0.1 (0.0-0.1) 10^3/u L Nucleated RBC % (a uto) 0 % Nucleated RBCs # 0.0 /100WBC Sodium 140 (136-145) mmol/L Potassium 3.8 (3.5-5.1) mmol/L Chloride 108 H (98-107) mmol/L Carbon Dioxide 23 (22-29) mmol/L Anion Gap 12.8 (5-19) BUN 8 (8-23) mg/dL Creatinine 0.8 (0.5-0.9) mg/dL GFR Calculation 70.9 L (90-130) mL/min Glucose 83 (65-115) mg/dL Calculated Osmolal ity 287 (285-295) mOsm/k g Calcium 7.4 L (8.5-10.5) mg/dL Total Bilirubin 0.2 (0.15-1.2) mg/dL AST 8 (0-32) U/L ALT < 5 (0-33) U/L Alkaline Phosphata se 68 (35-105) IU/L Troponin T Baselin e 10 (0-10) ng/L Total Protein 5.1 L (6.6-8.7) g/dL Albumin 2.6 L (3.5-5.2) g/dL Globulin 2.5 (1.3-4.6) g/dL Discharge Plan Discharge Patient Disposition: Home Clinical Impression: Supraventricular tachycardia Condition: Stable Prescriptions: No Action tizanidine 4 mg tablet 4 mg PO TID PRN (Reason: muscle spasticity) Qty: 90 RF: 1 Hold Instructions: Resume on 12/20/20. hold while taking ciprofloxacin docusate sodium [Colace] 100 mg capsule 100 mg PO DAILY PRN (Reason: Constipation) RF: 0 Adult Probiotic 3 billion cell capsule 3,000 mmu cells PO DAILY RF: 0 aspirin [Adult Low Dose Aspirin] 81 mg tablet,delayed release (DR/EC) 81 mg PO DAILY 30 Days Qty: 30 RF: 3 ibuprofen 800 mg tablet 800 mg PO TID PRN (Reason: fever or pain) RF: 0 levothyroxine 112 mcg capsule 112 mcg PO DAILY RF: 0 flecainide 50 mg tablet 50 mg PO Q12H 30 Days Qty: 60 RF: 5 metoprolol tartrate 50 mg tablet 50 mg PO BID 30 Days Qty: 60 RF: 5 hydrocodone-acetaminophen 10-325 mg tablet 1 tab PO TID PRN (Reason: pain) 30 Days Qty: 90 RF: 0 Lumigan 0.01 % drops 2 drop ophthalmic (eye) BEDTIME RF: 0 furosemide [Lasix] 20 mg tablet 20 mg PO DAILY PRN (Reason: edema) Qty: 30 RF: 2 loratadine 10 mg capsule 10 mg PO DAILY Qty: 90 RF: 2 esomeprazole magnesium [Nexium] 40 mg capsule,delayed release(DR/EC) 40 mg PO DAILY Qty: 30 RF: 5 montelukast 10 mg tablet 10 mg PO DAILY Qty: 30 RF: 5 solifenacin [Vesicare] 10 mg tablet 10 mg PO DAILY Qty: 30 RF: 5 allopurinol 100 mg tablet 100 mg PO DAILY Qty: 30 RF: 0 potassium chloride 10 mEq tablet,ER particles/crystals 10 meq PO DAILY Qty: 30 RF: 0 ciprofloxacin HCl 500 mg tablet 500 mg PO Q12H Qty: 20 RF: 0 metronidazole [Flagyl] 500 mg tablet 500 mg PO Q8H 10 Days Qty: 30 RF: 0 hydrocortisone [Anusol-HC] 2.5 % cream with perineal applicator 1 applic [place] Q8H PRN (Reason: hemorrhoids) 21 Days RF: 0 ondansetron HCl 4 mg tablet 4 mg PO Q4H PRN (Reason: Nausea) RF: 0 cephalexin 500 mg capsule 500 mg PO BID 7 Days Qty: 14 RF: 0 Discharge Orders: Discharge ED (Routine); Ordered 12/17/20 Ordered By: Yosef Mullen Referrals: Dandre Mcintyre MD [Primary Care Provider] - Patient Instructions: Opioid Safety Activity Restrictions/Additional Instructions: Return to the emergency room if you have any difficulty or recurrence of symptoms. Highly recommend that you follow-up with your day care aide within the next week. Coding Level of Care Code ED Disease And Insect Control Boss for Rodriguezg Fwd Exam Comprehensive
[2020-12-17 11:49] LABS: Basophils # 0.1 10^3/uL (0.0-0.1); Basophils % 0.6 %; Eosinophils # 0.1 10^3/uL (0.0-0.8); Eosinophils % 1.3 %; Hematocrit 35.4 % (37.0-47.0); Hemoglobin 11.3 g/dL (11.5-15.3); Lymphocytes # 0.8 10^3/uL (0.8-4.8); Lymphocytes % 10.5 %; Mean Corpuscular HGB Conc 31.9 g/dL (30.0-36.0); Mean Corpuscular Hemoglobin 25.8 pg (28.0-34.0); Mean Corpuscular Volume 80.8 fL (81-99); Mean Platelet Volume 8.9 fL (7.4-10.4); Monocytes # 0.7 10^3/uL (0.2-0.9); Monocytes % 8.6 %; Neutrophils # 6.17 10^3/uL (1.8-7.7); Neutrophils % 78.4 %; Nucleated Red Blood Cells % 0 %; Platelet Count 392 10^3/cmm (130-400); Red Blood Count 4.38 10^6/uL (4.1-5.3); Red Cell Distribution Width 15.7 % (12.1-15.1); White Blood Count 7.9 10^3/uL (4.0-10.0)
[2020-12-17 12:16] LABS: Troponin(5th) Baseline 10 ng/L (0-10)
[2020-12-17 12:18] LABS: Alanine Aminotransferase < 5 U/L (0-33); Albumin Level 2.6 g/dL (3.5-5.2); Alkaline Phosphatase 68 IU/L (35-105); Anion Gap 12.8 (5-19); Aspartate Amino Transferase 8 U/L (0-32); Blood Urea Nitrogen 8 mg/dL (8-23); Calcium 7.4 mg/dL (8.5-10.5); Carbon Dioxide 23 mmol/L (22-29); Chloride 108 mmol/L (98-107); Creatinine Clr Calc Pharmacy 69.5526; Globulin 2.5 g/dL (1.3-4.6); Glomerular Filtration Rate 70.9 mL/min (90-130); Glucose 83 mg/dL (65-115); Osmolality Calculated 287 mOsm/kg (285-295); Potassium 3.8 mmol/L (3.5-5.1); Sodium 140 mmol/L (136-145); Total Bilirubin 0.2 mg/dL (0.15-1.2); Total Protein 5.1 g/dL (6.6-8.7)
--- NOTE | 2020-12-17 13:07 | ECG_ITS ---
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 Measurements Intervals [place] Rate: 62 P: 72 NM: 193 QRS: -12 QRSD: 109 T: 29 QT: 448 QTc: 457 Interpretive Statements SINUS RHYTHM WARNING: DATA QUALITY MAY AFFECT INTERPRETATION Compared to ECG 12/17/2020 11:21:05 Intraventricular conduction delay no longer present Electronically Signed On 12-22-2020 10:07:12 CDT by Sabi Laguna M.D. [id number]
[2020-12-17 14:32] VITALS: PULSE 73; RESP 15
== END 2020-12-17 14:33 | disposition home or self-care (01) ==
PROVIDERS: Emergency Provider Family Medicine; PCP Family Medicine
DX: I47.1 Supraventricular tachycardia (principal); Z79.82 Long term (current) use of aspirin; I10 Essential (primary) hypertension; E78.5 Hyperlipidemia, unspecified; Z85.3 Personal history of malignant neoplasm of breast; E11.42 Type 2 diabetes mellitus with diabetic polyneuropathy
CPT/HCPCS: 71045; 80053; 84484; 85025; 93005; 99283

== ENCOUNTER → 2020-12-23 13:02 | Outpatient (BNVA) | payer MEDICARE, MEDICAID, SELFPAY | PROVIDERS: PCP Family Medicine; Visit Provider Anesthesiology | DX: G89.29 Other chronic pain (principal); M48.062 Spinal stenosis, lumbar region with neurogenic claudication; M54.2 Cervicalgia; M43.6 Torticollis; M43.10 Spondylolisthesis, site unspecified; Z79.891 Long term (current) use of opiate analgesic; Z87.891 Personal history of nicotine dependence | CPT/HCPCS: 99214 ==

== ENCOUNTER → 2021-02-01 14:35 | Outpatient (BNVA) | payer MEDICARE, MEDICAID, SELFPAY | PROVIDERS: PCP Family Medicine; Visit Provider Urology | DX: N39.0 Urinary tract infection, site not specified (principal) | CPT/HCPCS: 81003 ==

== ENCOUNTER 2021-02-13 13:48 | Outpatient (CLI) | payer MEDICARE, MEDICAID, SELFPAY ==
[2021-02-13 14:48] LABS: Free T4 Free Thyroxine 1.14 ng/dL (0.82-1.77)
[2021-02-17 18:37] LABS: TSH Receptor Binding Antibody 1.23 IU/L (< OR = 2.00)
== END 2021-02-13 13:49 | disposition home or self-care (01) ==
LOC: LAB 13:53
PROVIDERS: PCP Family Medicine; Visit Provider Internal Medicine
DX: E03.9 Hypothyroidism, unspecified (principal)
CPT/HCPCS: 36415; 83516; 84439; 84443

== ENCOUNTER → 2021-03-01 13:03 | Outpatient (BNVA) | payer MEDICARE, MEDICAID, SELFPAY | PROVIDERS: PCP Family Medicine; Visit Provider Anesthesiology | DX: G89.29 Other chronic pain (principal); M48.062 Spinal stenosis, lumbar region with neurogenic claudication; M17.0 Bilateral primary osteoarthritis of knee; M43.10 Spondylolisthesis, site unspecified; M62.830 Muscle spasm of back; Z79.899 Other long term (current) drug therapy; Z79.891 Long term (current) use of opiate analgesic; Z87.891 Personal history of nicotine dependence | CPT/HCPCS: 99214 ==

== ENCOUNTER → 2021-06-01 10:50 | Outpatient (BNVA) | payer MEDICARE, MEDICAID, SELFPAY | PROVIDERS: PCP Family Medicine; Visit Provider Anesthesiology | DX: M79.671 Pain in right foot (principal); M79.672 Pain in left foot; M43.10 Spondylolisthesis, site unspecified; Z79.891 Long term (current) use of opiate analgesic | CPT/HCPCS: 99214 ==

== ENCOUNTER → 2021-06-08 16:44 | Outpatient (BNVA) | payer MEDICARE, MEDICAID, SELFPAY | PROVIDERS: PCP Family Medicine; Visit Provider Nurse Practitioner Family | DX: N39.0 Urinary tract infection, site not specified (principal) | CPT/HCPCS: 81003; 87077; 87086; 87184 ==

== ENCOUNTER → 2021-06-21 16:11 | Outpatient (BNVA) | payer MEDICARE, MEDICAID, SELFPAY | PROVIDERS: PCP Family Medicine; Visit Provider Nurse Practitioner Family | DX: N39.0 Urinary tract infection, site not specified (principal) | CPT/HCPCS: 81003; 87086 ==

== ENCOUNTER → 2021-07-17 10:58 | Outpatient (BNVA) | payer MEDICARE, MEDICAID, SELFPAY | PROVIDERS: PCP Family Medicine; Visit Provider Anesthesiology Pain Medicine | DX: G89.29 Other chronic pain (principal); M54.2 Cervicalgia; M54.50 Low back pain, unspecified; M79.604 Pain in right leg; M79.605 Pain in left leg; Z79.891 Long term (current) use of opiate analgesic; Z87.891 Personal history of nicotine dependence | CPT/HCPCS: 99205; 99215 ==

== ENCOUNTER → 2021-08-02 16:33 | Outpatient (BNVA) | payer MEDICARE, MEDICAID, SELFPAY | PROVIDERS: PCP Family Medicine; Visit Provider Nurse Practitioner Family | DX: B37.3 Candidiasis of vulva and vagina (principal); Z79.899 Other long term (current) drug therapy | CPT/HCPCS: 81003; 87086 ==

== ENCOUNTER → 2021-08-14 10:59 | Outpatient (BNVA) | payer MEDICARE, MEDICAID, SELFPAY | PROVIDERS: PCP Family Medicine; Visit Provider Anesthesiology Pain Medicine | DX: G89.29 Other chronic pain (principal); M54.50 Low back pain, unspecified; M54.2 Cervicalgia; Z87.891 Personal history of nicotine dependence; Z79.891 Long term (current) use of opiate analgesic | CPT/HCPCS: 99214 ==

== ENCOUNTER → 2021-09-11 10:45 | Outpatient (BNVA) | payer MEDICARE, MEDICAID, SELFPAY | PROVIDERS: PCP Family Medicine; Visit Provider Anesthesiology Pain Medicine | DX: G89.29 Other chronic pain (principal); M54.2 Cervicalgia; M54.50 Low back pain, unspecified; M79.604 Pain in right leg; M79.605 Pain in left leg; Z79.891 Long term (current) use of opiate analgesic; Z87.891 Personal history of nicotine dependence | CPT/HCPCS: 99214 ==

== ENCOUNTER → 2021-09-18 13:49 | Outpatient (BNVA) | payer MEDICARE, MEDICAID, SELFPAY | PROVIDERS: PCP Family Medicine; Visit Provider Internal Medicine Cardiovascular Disease | DX: I47.1 Supraventricular tachycardia (principal); I10 Essential (primary) hypertension; Z86.718 Personal history of other venous thrombosis and embolism; M79.89 Other specified soft tissue disorders; Z87.891 Personal history of nicotine dependence | CPT/HCPCS: 99213; 99214 ==

== ENCOUNTER → 2021-09-26 13:20 | Outpatient (BNVA) | payer MEDICARE, MEDICAID, SELFPAY | PROVIDERS: PCP Family Medicine; Visit Provider Urology | DX: A09 Infectious gastroenteritis and colitis, unspecified (principal); N30.20 Other chronic cystitis without hematuria; N39.0 Urinary tract infection, site not specified; N94.9 Unspecified condition associated with female genital organs and menstrual cycle; N89.8 Other specified noninflammatory disorders of vagina | CPT/HCPCS: 52000; 81003; 87493; 99213 ==

== ENCOUNTER 2021-10-12 14:47 | Outpatient (CLI) | payer MEDICARE, MEDICAID, SELFPAY ==
--- NOTE | 2021-10-12 14:55 | MM_ITS ---
WS: [id number] BILATERAL 3D TOMOSYNTHESIS DIGITAL DIAGNOSTIC MAMMOGRAPHY WITH CAD CLINICAL INFORMATION: HX OF BREAST CA COMPARISON: May 11, 2020 TECHNIQUE: Bilateral CC, MLO, and ML views. FINDINGS: Scattered fibroglandular densities bilaterally. Lumpectomy with parenchymal fibrosis LEFT breast. Punctate and lucent centered calcifications. Vascul ar calcifications. No suspicious focal mass, asymmetry, calcifications, or architectural distortion. No evidence of alba gnancy. MM/[place] [id number] IMPRESSION: BI-RADS: 2-Benign FOLLOW UP: 1 Year Follow-up Recommend return to annual diagnostic mammography.
== END 2021-10-12 14:48 | disposition home or self-care (01) ==
LOC: RAD 14:52
PROVIDERS: PCP Family Medicine; Visit Provider Family Medicine
DX: Z12.31 Encounter for screening mammogram for malignant neoplasm of breast (principal); Z85.3 Personal history of malignant neoplasm of breast
CPT/HCPCS: 77062

== ENCOUNTER → 2021-10-16 11:17 | Outpatient (BNVA) | payer MEDICARE, MEDICAID, SELFPAY | PROVIDERS: PCP Family Medicine; Visit Provider Anesthesiology Pain Medicine | DX: G89.29 Other chronic pain (principal); M54.2 Cervicalgia; M54.50 Low back pain, unspecified; M79.604 Pain in right leg; M79.605 Pain in left leg; Z79.891 Long term (current) use of opiate analgesic; Z87.891 Personal history of nicotine dependence | CPT/HCPCS: 99214 ==

== ENCOUNTER → 2021-10-19 14:22 | Outpatient (BNVA) | payer MEDICARE, MEDICAID, SELFPAY | PROVIDERS: PCP Family Medicine; Visit Provider Family Medicine | DX: A09 Infectious gastroenteritis and colitis, unspecified (principal) | CPT/HCPCS: 87493 ==

== ENCOUNTER → 2021-11-14 14:58 | Outpatient (BNVA) | payer MEDICARE, MEDICAID, SELFPAY | PROVIDERS: PCP Family Medicine; Referring Provider Urology; Visit Provider Obstetrics & Gynecology | DX: N89.8 Other specified noninflammatory disorders of vagina (principal) | CPT/HCPCS: 87070; 87205 ==

== ENCOUNTER → 2021-11-23 11:40 | Outpatient (BNVA) | payer MEDICARE, MEDICAID, SELFPAY | PROVIDERS: PCP Family Medicine; Visit Provider Specialist | DX: G89.29 Other chronic pain (principal); M54.50 Low back pain, unspecified; M54.2 Cervicalgia; Z87.891 Personal history of nicotine dependence; Z79.891 Long term (current) use of opiate analgesic; M17.0 Bilateral primary osteoarthritis of knee; M25.562 Pain in left knee; M25.561 Pain in right knee | CPT/HCPCS: 20610; 99213; J1100; J2795; J3301 ==

== ENCOUNTER → 2021-12-25 16:28 | Outpatient (BNVA) | payer MEDICARE, MEDICAID, SELFPAY | PROVIDERS: PCP Family Medicine; Visit Provider Family Medicine | DX: I10 Essential (primary) hypertension (principal); K51.90 Ulcerative colitis, unspecified, without complications; E11.9 Type 2 diabetes mellitus without complications; Z87.891 Personal history of nicotine dependence | CPT/HCPCS: 80053; 83036; 85025 ==

== ENCOUNTER → 2021-12-28 13:13 | Outpatient (BNVA) | payer MEDICARE, MEDICAID, SELFPAY | PROVIDERS: PCP Family Medicine; Visit Provider Anesthesiology Pain Medicine | DX: M54.50 Low back pain, unspecified (principal); M79.604 Pain in right leg; M79.605 Pain in left leg; Z87.891 Personal history of nicotine dependence; Z79.891 Long term (current) use of opiate analgesic; G89.29 Other chronic pain; M43.6 Torticollis; M54.2 Cervicalgia | CPT/HCPCS: 99214 ==

== ENCOUNTER → 2022-01-25 12:33 | Outpatient (BNVA) | payer MEDICARE, MEDICAID, SELFPAY | PROVIDERS: PCP Family Medicine; Visit Provider Anesthesiology Pain Medicine | DX: G89.29 Other chronic pain (principal); M54.50 Low back pain, unspecified; M54.2 Cervicalgia; M79.604 Pain in right leg; M79.605 Pain in left leg; Z87.891 Personal history of nicotine dependence | CPT/HCPCS: 99214 ==

== ENCOUNTER → 2022-02-22 13:03 | Outpatient (BNVA) | payer MEDICARE, MEDICAID, SELFPAY | PROVIDERS: PCP Family Medicine; Visit Provider Anesthesiology Pain Medicine | DX: G89.29 Other chronic pain (principal); M54.50 Low back pain, unspecified; M79.604 Pain in right leg; M79.605 Pain in left leg; M54.2 Cervicalgia; Z87.891 Personal history of nicotine dependence | CPT/HCPCS: 99214 ==

== ENCOUNTER → 2022-03-01 11:20 | Outpatient (BNVA) | payer MEDICARE, MEDICAID, SELFPAY | PROVIDERS: PCP Family Medicine; Visit Provider Specialist | DX: M17.0 Bilateral primary osteoarthritis of knee (principal); Z71.89 Other specified counseling | CPT/HCPCS: 20610; J7318 ==

== ENCOUNTER → 2022-03-22 12:57 | Outpatient (BNVA) | payer MEDICARE, MEDICAID, SELFPAY | PROVIDERS: PCP Family Medicine; Visit Provider Anesthesiology Pain Medicine | DX: G89.29 Other chronic pain (principal); M54.2 Cervicalgia; M54.9 Dorsalgia, unspecified; M43.6 Torticollis; M79.604 Pain in right leg; M79.605 Pain in left leg; Z87.891 Personal history of nicotine dependence | CPT/HCPCS: 99214 ==

== ENCOUNTER → 2022-04-19 10:47 | Outpatient (BNVA) | payer MEDICARE, MEDICAID, SELFPAY | PROVIDERS: PCP Family Medicine; Visit Provider Anesthesiology Pain Medicine | DX: G89.29 Other chronic pain (principal); M54.50 Low back pain, unspecified; M43.6 Torticollis; M54.2 Cervicalgia; M25.561 Pain in right knee; M25.562 Pain in left knee | CPT/HCPCS: 99214 ==

== ENCOUNTER → 2022-05-01 15:22 | Outpatient (BNVA) | payer MEDICARE, MEDICAID, SELFPAY | PROVIDERS: PCP Family Medicine; Visit Provider Internal Medicine | DX: E03.9 Hypothyroidism, unspecified (principal); I47.1 Supraventricular tachycardia; Z79.890 Hormone replacement therapy | CPT/HCPCS: 84439; 84443; 99214 ==

== ENCOUNTER → 2022-05-17 11:07 | Outpatient (BNVA) | payer MEDICARE, MEDICAID, SELFPAY | PROVIDERS: PCP Family Medicine; Visit Provider Anesthesiology Pain Medicine | DX: G89.29 Other chronic pain (principal); M54.2 Cervicalgia; M54.50 Low back pain, unspecified; M79.604 Pain in right leg; M79.605 Pain in left leg; M43.6 Torticollis | CPT/HCPCS: 99214 ==

== ENCOUNTER → 2022-05-31 11:15 | Outpatient (BNVA) | payer MEDICARE, MEDICAID, SELFPAY | PROVIDERS: PCP Family Medicine; Visit Provider Specialist | DX: M17.0 Bilateral primary osteoarthritis of knee (principal); Z71.89 Other specified counseling | CPT/HCPCS: 20610; J1100; J2795; J3301 ==

== ENCOUNTER → 2022-06-25 11:15 | Outpatient (BNVA) | payer MEDICARE, MEDICAID, SELFPAY | PROVIDERS: PCP Family Medicine; Visit Provider Anesthesiology Pain Medicine | DX: G89.29 Other chronic pain (principal); M54.50 Low back pain, unspecified | CPT/HCPCS: 99213; 99214 ==

== ENCOUNTER → 2022-08-01 09:23 | Outpatient (BNVA) | payer MEDICARE, MEDICAID, SELFPAY | PROVIDERS: PCP Family Medicine; Visit Provider Anesthesiology Pain Medicine | DX: G89.29 Other chronic pain (principal); M54.50 Low back pain, unspecified; M79.604 Pain in right leg; M79.605 Pain in left leg; M54.2 Cervicalgia | CPT/HCPCS: 99214 ==

== ENCOUNTER → 2022-08-02 15:45 | Outpatient (BNVA) | payer MEDICARE, MEDICAID, SELFPAY | PROVIDERS: PCP Family Medicine; Visit Provider Family Medicine | DX: N39.0 Urinary tract infection, site not specified (principal) | CPT/HCPCS: 81003; 87086 ==

== ENCOUNTER → 2022-08-27 10:40 | Outpatient (BNVA) | payer MEDICARE, MEDICAID, SELFPAY | PROVIDERS: PCP Family Medicine; Visit Provider Anesthesiology Pain Medicine | DX: G89.29 Other chronic pain (principal); M54.2 Cervicalgia; M54.50 Low back pain, unspecified | CPT/HCPCS: 99214 ==

== ENCOUNTER → 2022-09-17 11:20 | Outpatient (BNVA) | payer MEDICARE, MEDICAID, SELFPAY | PROVIDERS: PCP Family Medicine; Visit Provider Specialist | DX: M17.0 Bilateral primary osteoarthritis of knee (principal); Z71.89 Other specified counseling | CPT/HCPCS: 20610; 73560; 73565; 99213; J7326 ==

== ENCOUNTER → 2022-10-02 13:58 | Outpatient (BNVA) | payer MEDICARE, MEDICAID, SELFPAY | PROVIDERS: PCP Family Medicine; Visit Provider Internal Medicine Cardiovascular Disease | DX: I47.1 Supraventricular tachycardia (principal); I10 Essential (primary) hypertension; E78.5 Hyperlipidemia, unspecified; E03.9 Hypothyroidism, unspecified; R94.39 Abnormal result of other cardiovascular function study; Z87.891 Personal history of nicotine dependence | CPT/HCPCS: 99214 ==

== ENCOUNTER → 2022-10-11 11:11 | Outpatient (BNVA) | payer MEDICARE, MEDICAID, SELFPAY | PROVIDERS: PCP Family Medicine; Visit Provider Family Medicine | DX: Z00.00 Encounter for general adult medical examination without abnormal findings (principal); Z79.891 Long term (current) use of opiate analgesic; E03.9 Hypothyroidism, unspecified; D64.9 Anemia, unspecified | CPT/HCPCS: 80053; 80061; 83036; 84443; 85025 ==

== ENCOUNTER → 2022-10-23 11:17 | Outpatient (BNVA) | payer MEDICARE, MEDICAID, SELFPAY | PROVIDERS: PCP Family Medicine; Visit Provider Anesthesiology Pain Medicine | DX: M54.50 Low back pain, unspecified (principal); G89.29 Other chronic pain; M54.2 Cervicalgia | CPT/HCPCS: 99213; 99214 ==

== ENCOUNTER 2022-10-26 14:22 | Outpatient (CLI) | payer MEDICARE, MEDICAID, SELFPAY ==
--- NOTE | 2022-10-26 14:26 | MM_ITS ---
WS: [id number] BILATERAL 3D TOMOSYNTHESIS DIGITAL DIAGNOSTIC MAMMOGRAPHY WITH CAD CLINICAL INFORMATION: ANNUAL - HX BR CA HISTORY: History of LEFT breast cancer COMPARISON: TECHNIQUE: Bilateral CC, MLO, and ML views. FINDINGS: Scattered fibroglandular densities bilaterally. Punctate and lucent centered calcifications. Vascular calcifications. Prior lumpectomy LEFT breast with parenchymal scarring. No suspicious focal mass, asymmetry, calcifications, or architectural distortion. No evidence of alba gnancy. MM/[place] [id number] IMPRESSION: BI-RADS: 2-Benign FOLLOW UP: 1 Year Follow-up Recommend return to annual diagnostic mammography.
--- NOTE | 2022-10-26 14:30 | XR_ITS ---
WS: [id number] DEXA (DUAL ENERGY X-RAY ABSORPTIOMETRY) Bone mineral density was performed using a [employer] machine. HISTORY: screening COMPARISON: 12/10/2014 Lumbar spine BMD (L1-L4): 1.319 g/cm2 T score: 1.2 Z score: 1.9 Total hip BMD: Left: 0.768 g/cm2. T score: -1.9 Z score: -1.1 Right: 0.804 g/cm2. T score: -1.6 Z score: -0.8 10 year probability of a major osteoporotic fracture is 12.7%. Compared to the prior study from 12/10/2014. Lumbar spine bone mineral density has decrease by 13.8%. Bilateral hips bone mineral density has decrease by 26.1%. XR/XR DEXA axial skeleton* [id number] IMPRESSION: OSTEOPENIA based upon the WHO classification for females. Significant decrease in bone mineral density since the prior study.
== END 2022-10-26 14:23 | disposition home or self-care (01) ==
PROVIDERS: PCP Family Medicine; Visit Provider Family Medicine
DX: Z00.00 Encounter for general adult medical examination without abnormal findings (principal); Z85.3 Personal history of malignant neoplasm of breast; R92.1 Mammographic calcification found on diagnostic imaging of breast; Z13.820 Encounter for screening for osteoporosis; M85.80 Other specified disorders of bone density and structure, unspecified site
CPT/HCPCS: 77062; 77080; G0279

== ENCOUNTER → 2022-11-29 10:55 | Outpatient (BNVA) | payer MEDICARE, MEDICAID, SELFPAY | PROVIDERS: PCP Family Medicine; Visit Provider Anesthesiology Pain Medicine | DX: G89.29 Other chronic pain (principal); M48.02 Spinal stenosis, cervical region; M47.816 Spondylosis without myelopathy or radiculopathy, lumbar region; M48.061 Spinal stenosis, lumbar region without neurogenic claudication | CPT/HCPCS: 99213 ==

== ENCOUNTER → 2022-12-20 14:14 | Outpatient (BNVA) | payer MEDICARE, MEDICAID, SELFPAY | PROVIDERS: PCP Family Medicine; Visit Provider Specialist | DX: M17.0 Bilateral primary osteoarthritis of knee (principal); Z71.89 Other specified counseling | CPT/HCPCS: 20610; J1100; J2795; J3301 ==

== ENCOUNTER → 2023-01-08 09:58 | Outpatient (BNVA) | payer MEDICARE, MEDICAID, SELFPAY | PROVIDERS: PCP Family Medicine; Visit Provider Anesthesiology Pain Medicine | DX: M54.2 Cervicalgia (principal); M54.9 Dorsalgia, unspecified; G89.29 Other chronic pain | CPT/HCPCS: 99214 ==

== ENCOUNTER → 2023-02-07 09:31 | Outpatient (BNVA) | payer MEDICARE, MEDICAID, SELFPAY | PROVIDERS: PCP Family Medicine; Visit Provider Anesthesiology Pain Medicine | DX: G89.29 Other chronic pain; M48.02 Spinal stenosis, cervical region; M47.816 Spondylosis without myelopathy or radiculopathy, lumbar region; M48.061 Spinal stenosis, lumbar region without neurogenic claudication | CPT/HCPCS: 99213 ==

== ENCOUNTER → 2023-03-07 09:47 | Outpatient (BNVA) | payer MEDICARE, MEDICAID, SELFPAY | PROVIDERS: PCP Family Medicine; Visit Provider Anesthesiology Pain Medicine | DX: G89.29 Other chronic pain; M47.816 Spondylosis without myelopathy or radiculopathy, lumbar region; M48.061 Spinal stenosis, lumbar region without neurogenic claudication; M43.16 Spondylolisthesis, lumbar region | CPT/HCPCS: 99213 ==

== ENCOUNTER → 2023-03-12 13:23 | Outpatient (BNVA) | payer MEDICARE, MEDICAID, SELFPAY | PROVIDERS: PCP Family Medicine; Visit Provider Family Medicine | DX: R30.0 Dysuria (principal); N39.0 Urinary tract infection, site not specified | CPT/HCPCS: 81000; 87077; 87086; 87184 ==

== ENCOUNTER → 2023-03-26 10:17 | Outpatient (BNVA) | payer MEDICARE, MEDICAID, SELFPAY | PROVIDERS: PCP Family Medicine; Visit Provider Anesthesiology Pain Medicine | DX: G89.29 Other chronic pain; Z79.899 Other long term (current) drug therapy; M48.02 Spinal stenosis, cervical region; M47.816 Spondylosis without myelopathy or radiculopathy, lumbar region; M48.061 Spinal stenosis, lumbar region without neurogenic claudication; K50.90 Crohn's disease, unspecified, without complications | CPT/HCPCS: 99214 ==

== ENCOUNTER → 2023-04-11 10:27 | Outpatient (BNVA) | payer MEDICARE, MEDICAID, SELFPAY | PROVIDERS: PCP Family Medicine; Visit Provider Specialist | DX: M17.0 Bilateral primary osteoarthritis of knee (principal) | CPT/HCPCS: 20610; J7326 ==

== ENCOUNTER → 2023-04-25 09:22 | Outpatient (BNVA) | payer MEDICARE, MEDICAID, SELFPAY | PROVIDERS: PCP Family Medicine; Visit Provider Anesthesiology Pain Medicine | DX: G89.29 Other chronic pain; Z79.899 Other long term (current) drug therapy; M48.061 Spinal stenosis, lumbar region without neurogenic claudication; M47.816 Spondylosis without myelopathy or radiculopathy, lumbar region; M48.02 Spinal stenosis, cervical region; I10 Essential (primary) hypertension; E03.9 Hypothyroidism, unspecified; I47.10 Supraventricular tachycardia, unspecified; D64.9 Anemia, unspecified | CPT/HCPCS: 80053; 84443; 85025; 99214 ==

== ENCOUNTER → 2023-04-30 11:28 | Outpatient (BNVA) | payer MEDICARE, MEDICAID, SELFPAY | PROVIDERS: PCP Family Medicine; Visit Provider Internal Medicine | DX: E03.9 Hypothyroidism, unspecified (principal); I10 Essential (primary) hypertension; Z79.890 Hormone replacement therapy | CPT/HCPCS: 99214 ==

== ENCOUNTER → 2023-06-06 12:55 | Outpatient (BNVA) | payer MEDICARE, MEDICAID, SELFPAY | PROVIDERS: PCP Family Medicine; Visit Provider Anesthesiology Pain Medicine | DX: G89.29 Other chronic pain; Z79.899 Other long term (current) drug therapy; M48.02 Spinal stenosis, cervical region; M47.816 Spondylosis without myelopathy or radiculopathy, lumbar region; M48.061 Spinal stenosis, lumbar region without neurogenic claudication | CPT/HCPCS: 99213 ==

== ENCOUNTER → 2023-07-02 10:58 | Outpatient (BNVA) | payer MEDICARE, MEDICAID, SELFPAY | PROVIDERS: PCP Family Medicine; Visit Provider Internal Medicine | DX: E03.9 Hypothyroidism, unspecified (principal); I10 Essential (primary) hypertension; I47.10 Supraventricular tachycardia, unspecified; Z79.890 Hormone replacement therapy | CPT/HCPCS: 99214 ==

== ENCOUNTER → 2023-07-04 12:38 | Outpatient (BNVA) | payer MEDICARE, MEDICAID, SELFPAY | PROVIDERS: PCP Family Medicine; Visit Provider Anesthesiology Pain Medicine | DX: M54.16 Radiculopathy, lumbar region (principal); G89.29 Other chronic pain; Z79.899 Other long term (current) drug therapy; M48.02 Spinal stenosis, cervical region | CPT/HCPCS: 99214 ==

== ENCOUNTER → 2023-07-12 12:51 | Outpatient (BNVA) | payer MEDICARE, MEDICAID, SELFPAY | PROVIDERS: PCP Family Medicine; Visit Provider Family Medicine | DX: E03.9 Hypothyroidism, unspecified (principal) | CPT/HCPCS: 84439; 84443 ==

== ENCOUNTER → 2023-08-01 13:16 | Outpatient (BNVA) | payer MEDICARE, MEDICAID, SELFPAY | PROVIDERS: PCP Family Medicine; Visit Provider Anesthesiology Pain Medicine | DX: M54.2 Cervicalgia (principal); M54.9 Dorsalgia, unspecified; G89.29 Other chronic pain; Z79.899 Other long term (current) drug therapy | CPT/HCPCS: 99214 ==

== ENCOUNTER → 2023-08-02 10:34 | Outpatient (BNVA) | payer MEDICARE, MEDICAID, SELFPAY | PROVIDERS: PCP Family Medicine; Visit Provider Specialist | DX: M17.0 Bilateral primary osteoarthritis of knee (principal) | CPT/HCPCS: 20610; 99213; J1100; J2795; J3301 ==

== ENCOUNTER → 2023-08-29 13:03 | Outpatient (BNVA) | payer MEDICARE, MEDICAID, SELFPAY | PROVIDERS: PCP Family Medicine; Visit Provider Anesthesiology Pain Medicine | DX: G89.29 Other chronic pain; M43.6 Torticollis; Z79.899 Other long term (current) drug therapy; M48.02 Spinal stenosis, cervical region | CPT/HCPCS: 99214 ==

== ENCOUNTER → 2023-09-26 13:52 | Outpatient (BNVA) | payer MEDICARE, MEDICAID, SELFPAY | PROVIDERS: PCP Family Medicine; Visit Provider Anesthesiology Pain Medicine | DX: M47.816 Spondylosis without myelopathy or radiculopathy, lumbar region (principal) | CPT/HCPCS: 64635; 64636; J1010 ==

== ENCOUNTER → 2023-10-08 14:26 | Outpatient (BNVA) | payer MEDICARE, MEDICAID, SELFPAY | PROVIDERS: PCP Family Medicine; Visit Provider Family Medicine | DX: E03.9 Hypothyroidism, unspecified (principal) | CPT/HCPCS: 84439; 84443 ==

== ENCOUNTER → 2023-10-10 11:39 | Outpatient (BNVA) | payer MEDICARE, MEDICAID, SELFPAY | PROVIDERS: PCP Family Medicine; Visit Provider Internal Medicine | DX: E03.9 Hypothyroidism, unspecified (principal); I10 Essential (primary) hypertension; Z79.890 Hormone replacement therapy | CPT/HCPCS: 99214 ==

== ENCOUNTER → 2023-10-17 13:50 | Outpatient (BNVA) | payer MEDICARE, MEDICAID, SELFPAY | PROVIDERS: PCP Family Medicine; Visit Provider Anesthesiology Pain Medicine | DX: M47.816 Spondylosis without myelopathy or radiculopathy, lumbar region (principal); M54.2 Cervicalgia; G89.29 Other chronic pain; I47.10 Supraventricular tachycardia, unspecified; R94.39 Abnormal result of other cardiovascular function study; I10 Essential (primary) hypertension; E78.5 Hyperlipidemia, unspecified; Z86.718 Personal history of other venous thrombosis and embolism; Z87.891 Personal history of nicotine dependence | CPT/HCPCS: 64635; 64636; 99213; 99214; J1010 ==

== ENCOUNTER → 2023-10-22 13:00 | Outpatient (BNVA) | payer MEDICARE, MEDICAID, SELFPAY | PROVIDERS: PCP Family Medicine; Visit Provider Anesthesiology Pain Medicine | DX: M17.12 Unilateral primary osteoarthritis, left knee (principal); M25.561 Pain in right knee; G89.29 Other chronic pain; M48.02 Spinal stenosis, cervical region; M48.061 Spinal stenosis, lumbar region without neurogenic claudication; Z79.899 Other long term (current) drug therapy | CPT/HCPCS: 99214 ==

== ENCOUNTER → 2023-11-07 15:43 | Outpatient (BNVA) | payer MEDICARE, MEDICAID, SELFPAY | PROVIDERS: PCP Family Medicine; Visit Provider Family Medicine | DX: I10 Essential (primary) hypertension (principal); E03.9 Hypothyroidism, unspecified; D64.9 Anemia, unspecified; I47.10 Supraventricular tachycardia, unspecified | CPT/HCPCS: 80053; 85025 ==

== ENCOUNTER → 2023-11-08 10:58 | Outpatient (BNVA) | payer MEDICARE, MEDICAID, SELFPAY | PROVIDERS: PCP Family Medicine; Visit Provider Specialist | DX: M17.0 Bilateral primary osteoarthritis of knee (principal) | CPT/HCPCS: 20610; J7318 ==

== ENCOUNTER → 2023-11-12 14:10 | Outpatient (BNVA) | payer MEDICARE, MEDICAID, SELFPAY | PROVIDERS: PCP Family Medicine; Visit Provider Internal Medicine Cardiovascular Disease | DX: I10 Essential (primary) hypertension (principal); E78.5 Hyperlipidemia, unspecified; Z86.718 Personal history of other venous thrombosis and embolism; Z87.891 Personal history of nicotine dependence | CPT/HCPCS: 99214 ==

== ENCOUNTER 2023-12-31 12:15 | Outpatient (CLI) | payer MEDICARE, MEDICAID, SELFPAY ==
--- NOTE | 2023-12-31 12:30 | MM_ITS ---
WS: [id number] DIAGNOSTIC BILATERAL DIGITAL BREAST TOMOSYNTHESIS MAMMOGRAPHY WITH CAD HISTORY: hx of breast cancer COMPARISON: 10/26/2022, 10/12/2021, 05/11/2022 TECHNIQUE: Bilateral craniocaudad, mediolateral oblique, and mediolateral views are submitted with to mosynthesis and SM. Computer aided detection utilized. Breast composition: There are scattered areas of fibroglandular density. Prior lumpectomy LEFT breast . Parenchymal scarring and dystrophic calcifications at the lumpectomy site. Additional vascular calc ifications in each breast. No new mass or distortion. MM/[place] [id number] IMPRESSION: BI-RADS: 2-Benign FOLLOW UP: 1 Year Follow-up
== END 2023-12-31 12:16 | disposition home or self-care (01) ==
LOC: RAD 12:15
PROVIDERS: PCP Family Medicine; Visit Provider Family Medicine
DX: Z85.3 Personal history of malignant neoplasm of breast (principal); Z12.31 Encounter for screening mammogram for malignant neoplasm of breast; R92.323 Mammographic fibroglandular density, bilateral breasts; R92.1 Mammographic calcification found on diagnostic imaging of breast
CPT/HCPCS: 77062; G0279

== ENCOUNTER → 2024-01-15 15:44 | Outpatient (BNVA) | payer MEDICARE, MEDICAID, SELFPAY | PROVIDERS: PCP Family Medicine; Visit Provider Family Medicine | DX: E03.9 Hypothyroidism, unspecified (principal) | CPT/HCPCS: 84439; 84443 ==

== ENCOUNTER → 2024-01-17 11:23 | Outpatient (BNVA) | payer MEDICARE, MEDICAID, SELFPAY | PROVIDERS: PCP Family Medicine; Visit Provider Internal Medicine | DX: E03.9 Hypothyroidism, unspecified (principal); I10 Essential (primary) hypertension; Z79.890 Hormone replacement therapy | CPT/HCPCS: 99214 ==

== ENCOUNTER → 2024-02-21 09:52 | Outpatient (BNVA) | payer MEDICARE, MEDICAID, SELFPAY | PROVIDERS: PCP Family Medicine; Visit Provider Specialist | DX: M17.0 Bilateral primary osteoarthritis of knee (principal); Z71.89 Other specified counseling | CPT/HCPCS: 20610; J1100; J2795; J3301 ==

== ENCOUNTER 2024-07-10 12:00 | Outpatient (CLI) | payer MEDICARE, MEDICAID, SELFPAY ==
[2024-07-10 13:13] LABS: Thyroid Stimulating Hormone 1.48 uIU/mL (0.27-4.20)
== END 2024-07-10 12:01 | disposition home or self-care (01) ==
LOC: LAB 12:01
PROVIDERS: PCP Family Medicine; Visit Provider Internal Medicine
DX: M17.0 Bilateral primary osteoarthritis of knee (principal); E03.9 Hypothyroidism, unspecified; Z71.89 Other specified counseling
CPT/HCPCS: 20610; 36415; 84439; 84443; J7326

== ENCOUNTER → 2024-07-30 14:21 | Outpatient (BNVA) | payer MEDICARE, MEDICAID, SELFPAY | PROVIDERS: PCP Family Medicine; Visit Provider Internal Medicine Cardiovascular Disease | DX: R07.9 Chest pain, unspecified (principal); R00.1 Bradycardia, unspecified; I47.10 Supraventricular tachycardia, unspecified; I10 Essential (primary) hypertension; E78.5 Hyperlipidemia, unspecified; Z86.718 Personal history of other venous thrombosis and embolism; Z79.899 Other long term (current) drug therapy | CPT/HCPCS: 93005; 99214 ==

== ENCOUNTER → 2024-09-24 13:11 | Outpatient (BNVA) | payer MEDICARE, MEDICAID, SELFPAY | PROVIDERS: PCP Family Medicine; Visit Provider Family Medicine | DX: N76.0 Acute vaginitis (principal); B96.89 Other specified bacterial agents as the cause of diseases classified elsewhere; Z79.891 Long term (current) use of opiate analgesic | CPT/HCPCS: 81000; 87086 ==

== ENCOUNTER → 2024-10-09 10:53 | Outpatient (BNVA) | payer MEDICARE, MEDICAID, SELFPAY | PROVIDERS: PCP Family Medicine; Visit Provider Specialist | DX: M17.12 Unilateral primary osteoarthritis, left knee (principal) | CPT/HCPCS: 20610; J1100; J2795; J3301; J9999 ==

== ENCOUNTER → 2024-10-23 09:28 | Outpatient (BNVA) | payer MEDICARE, MEDICAID, SELFPAY | PROVIDERS: PCP Family Medicine; Visit Provider Specialist | DX: M17.11 Unilateral primary osteoarthritis, right knee (principal) | CPT/HCPCS: 20610; J1100; J2795; J3301; J9999 ==

== ENCOUNTER → 2024-11-03 14:49 | Outpatient (BNVA) | payer MEDICARE, MEDICAID, SELFPAY | PROVIDERS: PCP Family Medicine; Visit Provider Family Medicine | DX: K50.90 Crohn's disease, unspecified, without complications (principal); F32.A Depression, unspecified; I10 Essential (primary) hypertension; E03.9 Hypothyroidism, unspecified; Z79.891 Long term (current) use of opiate analgesic | CPT/HCPCS: 80053; 80061; 84443; 85025; 86140 ==

== ENCOUNTER → 2025-01-08 11:14 | Outpatient (BNVA) | payer OTHER, MEDICAID, SELFPAY | PROVIDERS: PCP Family Medicine; Visit Provider Specialist | DX: M17.12 Unilateral primary osteoarthritis, left knee (principal); M17.11 Unilateral primary osteoarthritis, right knee | CPT/HCPCS: 20605; 20610; J7326 ==

== ENCOUNTER 2025-01-27 13:32 | Outpatient (CLI) | payer OTHER, MEDICAID, SELFPAY ==
[2025-01-27 16:07] LABS: Hematocrit 38.6 % (36-47); Hemoglobin 11.90 g/dL (11.27-16.99); Mean Corpuscular HGB Conc 30.8 g/dL (30-55); Mean Corpuscular Hemoglobin 24.7 pg (27-33); Mean Corpuscular Volume 80.2 fl (85-98); Nucleated Red Blood Cells % 0 %; Platelet Count 260 10^3/cmm (157-399); Red Blood Count 4.81 10^6/uL (3.85-5.65); White Blood Count 5.73 10^3/uL (3.29-11.43)
[2025-01-27 16:10] LABS: Glucose Urine UA Negative (Normal); Nitrate Urine Positive (Negative); Specific Gravity, Urine 1.023 (1.005-1.030)
[2025-01-27 16:15] LABS: Add Urine Microscopic? YES
[2025-01-27 16:31] LABS: UA Slide Review UA Slide Review Perf
[2025-01-27 16:39] LABS: Alanine Aminotransferase 11 U/L (0-33); Albumin Level 4.3 g/dL (3.5-5.2); Alkaline Phosphatase 99 U/L (35-105); Anion Gap 16.1 (5-19); Aspartate Amino Transferase 17 U/L (0-32); Blood Urea Nitrogen 12 mg/dL (8-23); Calcium 8.9 mg/dL (8.5-10.5); Carbon Dioxide 26 mmol/L (22-29); Chloride 104 mmol/L (98-107); Globulin 3.5 g/dL (1.3-4.6); Glucose 80 mg/dL (65-115); Osmolality Calculated 293 mOsm/kg (285-295); Potassium 4.1 mmol/L (3.5-5.1); Sodium 142 mmol/L (136-145); Total Protein 7.8 g/dL (6.6-8.7)
== END 2025-01-27 13:33 | disposition home or self-care (01) ==
LOC: ORTOACUTE 15:00
PROVIDERS: PCP Family Medicine; Visit Provider Specialist
DX: M17.11 Unilateral primary osteoarthritis, right knee (principal); Z01.818 Encounter for other preprocedural examination
CPT/HCPCS: 36415; 73560; 73565; 80053; 81001; 85025; 87077; 87086; 87186; 99214

== ENCOUNTER 2025-02-02 16:12 | Outpatient (CLI) | payer OTHER, MEDICAID, SELFPAY ==
--- NOTE | 2025-02-02 16:30 | CT_ITS ---
WS: [id number] CT RIGHT knee, noncontrast HISTORY: M17.11 - Unilateral primary osteoarthritis, right knee TECHNIQUE: Protocol for [facility] total knee replacement has been obtained. This includes axial imaging through the RIGHT hip, RIGHT knee and RIGHT ankle. DLP: 1049.17 mGy.cm COMPARISON: Radiograph 01/27/2025 Hips: Mild narrowing of the SI joints. Mild narrowing of the hip joints. Mild acetabular osteophytic ridging. No bone destruction. RIGHT knee: Severe tricompartment joint space narrowing with osteophytosis. Small to moderate suprapatellar joint effusion. No fracture. RIGHT ankle: Negative. CT/CT knee RT [facility] [id number] IMPRESSION: CT imaging provided for [facility] robotic total knee replacement.
== END 2025-02-02 16:13 | disposition home or self-care (01) ==
LOC: RAD 16:12
PROVIDERS: PCP Family Medicine; Visit Provider Specialist
DX: M17.11 Unilateral primary osteoarthritis, right knee (principal); M25.761 Osteophyte, right knee; M25.461 Effusion, right knee
CPT/HCPCS: 73700

== ENCOUNTER → 2025-02-08 13:07 | Outpatient (BNVA) | payer OTHER, MEDICAID, SELFPAY | PROVIDERS: PCP Family Medicine; Visit Provider Family Medicine | DX: Z01.818 Encounter for other preprocedural examination (principal); N39.0 Urinary tract infection, site not specified | CPT/HCPCS: 87086 ==

== ENCOUNTER → 2025-02-09 11:56 | Outpatient (BNVA) | payer OTHER, MEDICAID, SELFPAY | PROVIDERS: PCP Family Medicine; Visit Provider Family Medicine | DX: N39.0 Urinary tract infection, site not specified (principal) | CPT/HCPCS: 81000 ==

== ENCOUNTER 2025-02-11 13:59 | Observation (INO) | payer OTHER, MEDICAID, SELFPAY ==
[2025-02-11] VITALS (19 sets, daily range): BP systolic 91–153; BP diastolic 40–99; PULSE 51–73; RESP 16–18; TEMP 36.1–37; O2SAT 90–99; BMI 35.5; BMI 35.8
--- NOTE | 2025-02-11 07:27 | XRR_ITS ---
PROCEDURE INFORMATION: Exam: XR Right Knee Exam date and time: 02/11/2025 01:33 PM Age: 74 years old Clinical indication: Device placement; Joint replacement hardware; Prior surgery; Surgery date: Post-operative (0-2 days); Surgery type: Status post right total knee arthroplasty TECHNIQUE: Imaging protocol: Radiologic exam of the right knee. Views: 1 or 2 views. COMPARISON: CT knee RT [facility] [id number] 02/02/2025 04:32 PM FINDINGS: Bones/joints: Right knee prosthesis. No acute fracture. Alignment is normal. Soft tissues: Air in the soft tissues and joint space consistent with recent surgical intervention. XR/XR knee RT 1-2V [id number] IMPRESSION: Postop right knee prosthesis.
[2025-02-11 09:17] LABS: Glucose Urine UA Negative (Normal); Nitrate Urine Negative (Negative); Specific Gravity, Urine 1.028 (1.005-1.030)
[2025-02-11 09:37] LABS: Add Urine Microscopic? YES
--- NOTE | 2025-02-11 09:41 | ANES.PREANE2 ---
Pre-Anesthetic Assessment Height/Weight: Height 5 ft 6 in Weight 220 lb Temp Pulse Resp BP Pulse Ox O2 Del Method 97.0 F L 69 17 153/93 96 Room Air 02/11/25 09:21 02/11/25 09:21 02/11/25 09:21 02/11/25 09:21 02/11/25 09:21 02/11/25 09:21 Preop Diagnosis: Knee arthritis Operation Date: 02/11/25 10:05 Proposed Procedures p RIGHT Yared Robot Total Knee Arthroplasty(Right) - Francisca Capellan MD Was Beta Bel taken within 24 hours: N/A Was Clonidine taken within 24 hours: N/A Last intake: Intake Last Liquid Date 02/10/25 Last Liquid Time 22:00 Last Solid Date 02/10/25 Last Solid Time 22:00 Social No alcohol and No tobacco Exam alert, oriented x 3, clear to auscultation bilaterally and regular rate & rhythm Airway Submandibular: within normal limits Cervical ROM: within normal limits Mallampati: Class II Dentition: false Anesthetic Plan ASA status: 3 Anesthesia: General Other: No prior issues with anesthesia NPO since yesterday evening History of hypothyroidism on Synthroid Hypertension on metoprolol Crohn's disease Prior DVT in the . States that it was then her ankle. Was never placed on any medication for this and no issue since Lumbar spinal stenosis with neurogenic claudication. Patient states that she gets back pain most days Patient had a positive UA 02/04/2025. Placed on antibiotics at that time. Repeat UA today appears fairly clean Plan for general anesthesia Medications/Allergies Home Medications ?Medication ?Instructions ?Recorded ?Confirmed ?Last Taken ?Type bimatoprost 0.01 % eye drops 2 drop ophthalmic (eye) BEDTIME 08/07/19 02/10/25 02/10/25 History (Lumigan) lactobacillus combination no.8 3 3,000 mmu cells PO DAILY 04/20/20 02/10/25 01/11/25 History billion cell capsule (Adult Probiotic) furosemide 20 mg tablet (Lasix) 20 mg PO DAILY PRN edema #30 tabs 04/28/20 02/10/25 Unknown Rx mesalamine 1.2 gram tablet,delayed 4.8 g PO DAILY 06/01/21 02/10/25 02/10/25 History release ondansetron 4 mg disintegrating 4 mg PO Q6H PRN nausea and 03/07/22 02/10/25 Unknown Rx tablet vomiting #20 tabs tizanidine 4 mg tablet 4 mg PO TID PRN muscle spasticity 08/29/23 02/10/25 Unknown Rx #90 tabs cane #1 ea 09/24/24 02/10/25 Unknown Rx hydrocodone 10 mg-acetaminophen 1 tab PO TID PRN pain 30 days #90 02/01/25 02/10/25 02/10/25 Rx 325 mg tablet tabs flecainide 50 mg tablet 50 mg PO .QHS 02/04/25 02/10/25 02/10/25 History nitrofurantoin 100 mg PO Q12H 5 days #10 caps 02/08/25 02/10/25 02/10/25 Rx monohydrate/macrocrystals 100 mg capsule (Macrobid) allopurinol 100 mg tablet 100 mg PO DAILY 02/10/25 02/10/25 02/10/25 History esomeprazole magnesium 40 mg 40 mg PO DAILY 02/10/25 02/10/25 02/10/25 History capsule,delayed release levothyroxine 112 mcg tablet 112 mcg PO DAILY 02/10/25 02/11/25 02/11/25 History loratadine 10 mg tablet 10 mg PO DAILY 02/10/25 02/10/25 12/12/24 History metoprolol tartrate 25 mg tablet 25 mg PO DAILY 02/10/25 02/11/25 02/11/25 History montelukast 10 mg tablet 10 mg PO DAILY 02/10/25 02/10/25 02/10/25 History potassium chloride 10 mEq 10 meq PO DAILY PRN take with Lasix 02/10/25 02/10/25 Unknown History tablet,extended release(part/cryst) solifenacin 10 mg tablet 10 mg PO DAILY 02/10/25 02/11/25 02/11/25 History Allergies Allergy/AdvReac Type Severity Reaction Status Date / Time hylan G-F 20 (From Synvisc) Allergy Unknown myalgia Verified 02/10/25 13:11 fluoxetine (From Prozac) Allergy bad dreams Verified 02/10/25 13:11 pneumococcal 7-valent Allergy ALGY-Joint Verified 02/10/25 13:11 conjugate to Pain metronidazole (From Flagyl) AdvReac Intermediate nausea Verified 02/10/25 13:11 meloxicam (From Mobic) AdvReac myalgia Verified 02/10/25 13:11 [facility] Anesthesia Medical History Crohn disease Ulcerative colitis History of Clostridium difficile colitis Chronic neck and back pain Abnormal cardiovascular stress test Heart murmur Leg swelling History of DVT (deep vein thrombosis) Elevated blood pressure reading Supraventricular tachycardia Constipation Change in bowel habit Hemorrhoids Abnormal mammogram History of gout Dyslipidemia Benign essential HTN Hypothyroidism Bloody diarrhea History of shingles Hx of diabetes mellitus HX: breast cancer Pain amplification syndrome Bladder incontinence Restless legs syndrome Polyneuropathy, unspecified Shigellosis, unspecified Diverticular disease Acute bilateral knee pain Arthritis of knee, left Lumbar paraspinal muscle spasm Retrolisthesis of vertebrae Spinal stenosis, lumbar region with neurogenic claudication Bilateral foot pain Acute neck pain Encounter for long-term use of opiate analgesic Surgical History H/O colonoscopy H/O: hysterectomy History of lumpectomy of left breast Hx of cataract surgery Hx of arthroscopy of knee Family History Mother Diabetes Family/Other Diabetes maternal aunt, nephew Thyroid disease cousin Breast cancer maternal aunt, diagnosed in her 70's or 80's Father Throat cancer Other Cancer Denies family history of Colon cancer Ovarian cancer Clotting disorder Heart disease Hyperlipidemia Anesthesia complication Bleeding disorder Hypertension Uterine cancer Stroke Social History Smoking and tobacco/nicotine status: never used tobacco/nicotine Second hand smoke exposure: No Alcohol intake: never Substance/Drug Use: never Data Anesthesia Urine 02/11/25 Range/Units 09:08 Urine Color Dark yellow A (Yellow) Urine Appearance Clear (CLEAR) Urine pH 5.0 (5-7) Ur Specific [place] 1.028 (1.005-1.030) Urine Protein Trace A (Negative) Urine Glucose (UA) Negative (Normal) Urine Ketones Trace (Negative) Urine Nitrate Negative (Negative) Urine Bilirubin Negative (Negative) Ur Leukocyte Esterase Trace A (Negative) Urine RBC 0-4 H (0-2) /hpf Urine WBC 5-10 H (0-5) /hpf Cardiac Studies: Echocardiogram Ultrasound 03/23/20 Sestamibi Stress Test (Cardiology) 04/15/20 Cardiac Event Monitor 02/24/20
[2025-02-11] MEDS: acetaminophen 1,000 MG/100 ML PIGGYBACK 400 MG IV ×2 (10:01→17:36)
--- NOTE | 2025-02-11 10:02 | P.HPUD_ITS ---
Surgery/Procedure H&P Update DATE OF PROCEDURE: February 11, 2025 DATE H&P PERFORMED: 01/27/25 H&P UPDATE INFORMATION: I have reviewed H&P completed within last 30 days, I have examined patient prior to procedure, No changes to prior documentation, H&P is in [facility] EMR on date indicated and Risks and benefits of the procedure reviewed PLANNED PROCEDURE: Operation Date: 02/11/25 10:05 Proposed Procedures p RIGHT Yared Robot Total Knee Arthroplasty(Right) - Francisca Capellan MD Related Problem List Diagnoses 1. Primary osteoarthritis of right knee:
[2025-02-11] MEDS: ceFAZolin 2,000 mg SDV 2000 MG IVP ×2 (10:32→17:34)
[2025-02-11] MEDS: tranexamic acid 1,000 mg/10mL SDV 1000 MG IV (10:57)
[2025-02-11] MEDS: BUPivacaine 0.5% INJ 30 mL 20 ML XX (11:25)
[2025-02-11] MEDS: BUPivacaine liposome 13.3 mg/mL SDV 20 mL 266 MG XX (11:25)
[2025-02-11] MEDS: ceFAZolin 1,000 mg SDV 2000 MG IRRIGATION (11:29)
--- NOTE | 2025-02-11 13:26 | P.OP_ITS ---
Operative Report Date of procedure: February 11, 2025 Pre-op diagnosis: Primary osteoarthritis right knee Post-op diagnosis: Primary osteoarthritis right knee Post-op findings: Severe degenerative osteoarthritis with large osteophytes and complete denudement of bone. Slight flexion contracture Procedure done: Right total knee arthroplasty with Yared guidance Implants: The Julian total knee system with a size 6 triathlon beaded cruciate retaining femur right, a triathlon titanium tibial component size 5 beaded, a triathlon X3 tibial bearing CS insert size 5 x 12 mm and a beaded triathlon titanium asymmetric patella size 38 x 11 mm Specimens removed/disposition: Bone, disposed of Pathology: None Surgeon: Francisca Capellan MD Thermal Cutting Tracer Machine Operator: Elva Hahn, nurse practitioner, who services were required for positioning, retraction, completion of the surgical procedure, and closure Anesthesia: General (Intubated, ASA 3) Estimated blood loss (mL): 450 Tourniquet time (min): 0 (Not utilized) IV fluids (mL): 1,500 Urine output (mL): 250 Complications: None Findings: Severe degenerative osteoarthritis of the right knee with large osteophytes and complete denudement of cartilage Condition: stable Disposition: PACU (Plan admit to floor for postoperative rehabilitation and pain management) Brief History: This 74-year-old woman has been a patient of the orthopedic clinic for an extended period of time. She had multiple injections including viscosupplementation and cortisone injections. As these be began to become less effective, the patient gave consideration to total knee arthroplasty. Most recently, she has decided that she has significant enough limitations in her activities of daily living that she wishes to proceed with total knee arthroplasty. She decided to have her right total knee first, and this was scheduled for her. Risks and complications were discussed in the office. Consents were signed and questions were answered. Procedure: The patient was brought to the operating theater, and after undergoing general anesthesia, intubated, ASA 3, the right lower extremity was prepped with Dura-Prep and draped in usual fashion following placement of a tourniquet high on the leg. The leg was then draped free.? Tourniquet was not elevated throughout the surgical procedure. Prior to commencement of the procedure, a surgical pause was performed, and at the time of the surgical pause, we confirmed the site and side of surgery. Additionally, we confirmed the appropriate and timely administration of preoperative antibiotics, Ancef 2 g.? The availability of equipment was confirmed, and the patient's identity was verbalized as well. Following the surgical pause, an incision was made centering over the patella continuing proximally and distally as necessary to allow access to the knee joint. Prior to incision, assessment was made of the patient's leg, and there was noted to be a slight flexion contracture with minimal varus deformity. Dissection continued through skin and soft tissues using a scalpel. Hemostasis was obtained using electrocautery. The skin incision was followed by a median parapatellar arthrotomy. The leg was extended and the patella was able to be displaced laterally.? Appropriate arrays and markers were placed in appropriate position for use of the Yared.? Preoperative planning had been accomplished and was discussed in detail with the [facility] account representative.? Intraoperative mapping of the femur and tibia was accomplished after the arrays were placed.? Internal m arkers were also placed.? Once we had accomplished the Yared mapping, we began the appropriate resections for placement of the prosthesis.? The plan was for a cruciate retaining uncemented right total knee arthroplasty. Retraction was established using manual retraction by manager surgical and also the Yared leg positioner and retractors.? The knee was evaluated.? There was minimal flexion contracture and only slight varus deformity. Osteophytes were removed. Further assessment of the balance of the knee was accomplished following osteophyte removal. Appropriate bone resection was accomplished using the Yared.? The femur was sized to a size 6.? Following femoral cuts, attention was directed to the tibia.? Osteophytes were removed prior to this portion of the procedure.? We had performed a medial release at the beginning of the procedure to allow for placement of the array.? Proximal tibia was evaluated, and it was felt that appropriate size for the tibia was a size 5.? The size 5 tray was noted to fit nicely with good coverage.? Rim fit was accomplished with the size 5. A trial reduction was accomplished after osteophytes as well as the medial and lateral menisci had been removed.? We had removed the anterior cruciate ligament at the beginning of the case and preserved the posterior cruciate ligament.? Trial reduction was accomplished with a size 6 femoral cruciate retaining component, a size 5 tibial tray and a size 5 CS tibial bearing insert which was 9 mm thickness. There was felt to be too much laxity with the knee in extension, and trial reduction was then accomplished with the 11 mm insert. There was still minimal laxity, and we decided to proceed with a 12 mm insert as the final implant. With this configuration of a size 6 femur, a size 5 tibia with a 12 mm insert, the knee was noted to be well-balanced. Alignment was felt to be appropriate as well.? Trial components were removed after the femur had been drilled.? Prior to removal of the tibial tray which had been pinned in position with appropriate rotation as determined by the Yared plan, we broached the tibia.? Subsequently, the 4 drill holes were made for the prosthetic component.? All trial components were removed, and the wound was irrigated.? Plans were made for insertion of the prosthetic components.? Prior to this, the patella was manually prepared.? After resection of the articular surface with the jigging system, it was measured and measured a 38 mm patella.? We resected approximately 11 mm of patella.? Patellar height was restored with the patellar component. Once again, the wound was irrigated. The Tritanium tibia was impacted into position.? The beaded femur was then impacted into position in a cementless fashion. The CS tibial insert was placed prior to placement of the femoral component. The patella was pressed into position with a patellar clamp.? The knee was then copiously irrigated with betadine and saline and suctioned dry. Attention was then directed to closure. Closure was accomplished with 0 Vicryl in the fascial tissues.? The suture line of 0 Vicryl was supplemented with strata fix #1, with a running suture from proximal to distal and a second runnin g stitch from distal to proximal.? This was followed by Surgiflo and vancomycin powder.? Following this, a 2-0 Monocryl was used in the subcutaneous tissues, and the skin was closed with 3-0 Strata fix.? Care was taken to assure an excellent subcutaneous as well as skin closure.? A sterile dressing was then placed consisting of Dermabond Prineo, OpSite, ABD, sterile soft roll, and an Ronnie wrap including over the foot. The patient was returned the Recovery Room in a satisfactory condition. X-rays were obtained and reviewed there.? The patient will be discharged to the floor for postoperative rehabilitation and pain management. Related Problem List Diagnoses 1. Primary osteoarthritis of right knee:
[2025-02-11] MEDS: fentaNYL 50 mcg/mL INJ 2mL IVP ×2 (13:35→13:45)
--- NOTE | 2025-02-11 14:09 | ANE.PACU2 ---
Inpatient post-anesthesia follow up: Airway intact: Yes Vital signs: Temperature 97.5 F Pulse Rate 56 Respiratory Rate 16 Blood Pressure 132/84 Pulse Oximetry 93 Oxygen Delivery Me thod Room Air Oxygen Flow Rate 10 Fraction of Inspir ed Oxygen Hydration adequate: Yes Nausea and vomiting: No Pain level: 1 Mental status: Baseline
[2025-02-11] MEDS: oxyCODONE 5 mg IR Tab/Cap PO ×2 (15:03→20:31)
[2025-02-11] MEDS: mupirocin oint 22 gm 1 APPLIC NASAL (17:34)
[2025-02-11] MEDS: chlorhexidine gluconate 0.12% Btl 473 mL 30 ML MUCOUS MEM ×2 (17:35→23:44)
[2025-02-11] MEDS: nitrofurantoin SR (BID) 100 mg Capsule PO (17:35)
[2025-02-11] MEDS: sennosides-docusate Tablet 2 TAB PO (17:35)
[2025-02-11] MEDS: tranexamic acid 1,000 MG/100 ML PREMIX 600 MG IV (18:07)
[2025-02-11] MEDS: FLECAINIDE 50 MG TABLET PO (20:31)
[2025-02-12] VITALS (10 sets, daily range): BP systolic 105–144; BP diastolic 62–79; PULSE 60–69; RESP 16–18; TEMP 36.6–36.9; O2SAT 91–93
[2025-02-12] MEDS: oxyCODONE 5 mg IR Tab/Cap PO ×4 (00:40→16:14)
[2025-02-12] MEDS: acetaminophen 1,000 MG/100 ML PIGGYBACK 400 MG IV ×2 (02:34→09:57)
[2025-02-12] MEDS: nitrofurantoin SR (BID) 100 mg Capsule PO ×2 (02:35→14:49)
[2025-02-12] MEDS: ceFAZolin 2,000 mg SDV 2000 MG IVP ×2 (02:36→09:51)
[2025-02-12 04:43] LABS: Hematocrit 28.6 % (36-47); Hemoglobin 8.70 g/dL (11.27-16.99); Mean Corpuscular HGB Conc 30.4 g/dL (30-55); Mean Corpuscular Hemoglobin 24.3 pg (27-33); Mean Corpuscular Volume 79.9 fl (85-98); Nucleated Red Blood Cells % 0 %; Platelet Count 192 10^3/cmm (157-399); Red Blood Count 3.58 10^6/uL (3.85-5.65); White Blood Count 7.87 10^3/uL (3.29-11.43)
[2025-02-12 04:59] LABS: Anion Gap 16.4 (5-19); Blood Urea Nitrogen 16 mg/dL (8-23); Calcium 8.0 mg/dL (8.5-10.5); Carbon Dioxide 21 mmol/L (22-29); Chloride 106 mmol/L (98-107); Creatinine Clr Calc Pharmacy 65.6744; Glucose 138 mg/dL (65-115); Osmolality Calculated 291 mOsm/kg (285-295); Potassium 4.4 mmol/L (3.5-5.1); Sodium 139 mmol/L (136-145)
[2025-02-12] MEDS: sennosides-docusate Tablet 2 TAB PO ×2 (05:46→16:15)
[2025-02-12] MEDS: multivitamin therapeutic Tablet 1 TAB PO (05:47)
[2025-02-12] MEDS: mupirocin oint 22 gm 1 APPLIC NASAL ×2 (05:49→16:17)
[2025-02-12] MEDS: chlorhexidine gluconate 0.12% Btl 473 mL 30 ML MUCOUS MEM ×3 (05:49→16:18)
--- NOTE | 2025-02-12 12:23 | P.DS_ITS ---
Discharge Providers Date of Admission: 02/11/25 13:59 Date of Discharge: February 12, 2025 Attending Provider at Admission: Francisca Capellan MD Attending Provider at Discharge: Francisca Capellan MD Primary Care Provider: Dandre Mcintyre MD Diagnoses at Discharge Discharge Diagnosis 1. Primary osteoarthritis of right knee: 2. Status post total right knee replacement not using cement: Reason for Visit Reason for Visit: M17.11 Brief History: This 74-year-old woman has been a patient of the orthopedic clinic for an extended period of time. She had multiple injections including viscosupplementation and cortisone injections. As these be began to become less effective, the patient gave consideration to total knee arthroplasty. Most recently, she has decided that she has significant enough limitations in her activities of daily living that she wishes to proceed with total knee arthroplasty. She decided to have her right total knee first, and this was scheduled for her. Risks and complications were discussed in the office. Consents were signed and questions were answered. Hospital Course Hospital Course Patient was admitted under observation status following same-day surgery for left total knee arthroplasty. She did well with physical therapy. She was felt to be independent and safe for discharge to home. On the day of discharge, postop day 1, the patient's large outer dressing was removed. OpSite was dry an d intact. There was no evidence of DVT. There was minimal ecchymosis. There is no significant swelling. Patient was discharged home with home health to follow-up with me in the office as scheduled. Physical Exam Const: COMMON NORMALS: no acute distress, average body habitus, patient orient ed x3 and alert GENERAL APPEARANCE: cooperative and comfortable ORIENTATION/CONSCIOUSNESS: Yes awake HENMT: COMMON NORMALS: normocephalic and atraumatic HEAD & SCALP: normocephalic and atraumatic Eye: GENERAL EYE: appearance normal, both eyes and all related structures Chest: COMMONS NORMALS: normal inspection of the chest Resp: COMMON NORMALS: normal respiratory effort EFFORT & INSPECTION: Yes able to speak in complete sentences and Yes symmetric chest movement Extremity: RIGHT LOWER EXTREMITY: Yes knee joint (Dressing dry and intact, large outer dressing removed) Right knee: Yes palpation (Minimal to no discomfor t), Yes ROM (Not evaluated) and Yes neurovascular exam (Intact distally with no evidence of DVT) Neuro: COMMON NORMALS: patient oriented x3 SENSORIUM/ORIENTATION: Yes alert Psych: COMMON NORMALS: mental status grossly normal APPEARANCE: Yes grossly normal ATTITUDE: Yes calm and Yes engaged ATTENTION/CONCENTRATION: Yes attention grossly intact Skin: COMMON NORMALS: no rashes or lesions noted GENERAL SKIN EXAM: no rashes or lesions noted Urinary Catheter Management: Anderson: Cath Placed During This Visit: yes, but has since been removed by the nurse Reason for Continuing Indwelling Catheter: Decision to DC Catheter Urinary Catheter Date of Insertion: 02/11/25 Urinary Catheter Time of Insertion: 09:21 Date Urinary Catheter Removed: 02/12/25 Time Urinary Catheter Discontinued: 06:00 Discharge Data Studies Completed and Pending Completed Studies During Hospitalization Category Date Time Status XR knee RT 1-2V 18759 Routine Exams 02/11/25 07:27 Completed Radiology Impressions Knee X-Ray 02/11/25 07:27 IMPRESSION: Postop right knee prosthesis. Laboratory Results WBC 7.87 10^3/uL (3.29-11.43) 02/12/25 04:24 RBC 3.58 10^6/uL (3.85-5.65) L 02/12/25 04:24 Hgb 8.70 g/dL (11.27-16.99) L 02/12/25 04:24 Hct 28.6 % (36-47) L 02/12/25 04:24 MCV 79.9 fl (85-98) L 02/12/25 04:24 MCH 24.3 pg (27-33) L 02/12/25 04:24 MCHC 30.4 g/dL (30-55) 02/12/25 04:24 RDW 17.0 % (12.1-15.1) H 02/12/25 04:24 Plt Count 192 10^3/cmm (157-399) 02/12/25 04:24 MPV 9.8 fL (7.4-10.4) 02/12/25 04:24 Neut % (Auto) 82.1 % 02/12/25 04:24 Lymph % (Auto) 10.3 % 02/12/25 04:24 Laurel % (Auto) 6.9 % 02/12/25 04:24 Eos % (Auto) 0.1 % 02/12/25 04:24 Baso % (Auto) 0.3 % 02/12/25 04:24 Neut # (Auto) 6.47 10^3/uL (1.8-7.7) 02/12/25 04:24 Lymph # (Auto) 0.8 10^3/uL (0.8-4.8) 02/12/25 04:24 Laurel # (Auto) 0.5 10^3/uL (0.2-0.9) 02/12/25 04:24 Eos # (Auto) 0.0 10^3/uL (0.0-0.8) 02/12/25 04:24 Baso # (Auto) 0.0 10^3/uL (0.0-0.1) 02/12/25 04:24 Nucleated RBC % (auto) 0 % 02/12/25 04:24 Nucleated RBCs # 0.0 /100WBC 02/12/25 04:24 Sodium 139 mmol/L (136-145) 02/12/25 04:24 Potassium 4.4 mmol/L (3.5-5.1) 02/12/25 04:24 Chloride 106 mmol/L (98-107) 02/12/25 04:24 Carbon Dioxide 21 mmol/L (22-29) L 02/12/25 04:24 Anion Gap 16.4 (5-19) 02/12/25 04:24 BUN 16 mg/dL (8-23) 02/12/25 04:24 Creatinine 0.9 mg/dL (0.5-0.9) 02/12/25 04:24 GFR Calculation Not Reportable 02/12/25 04:24 Glucose 138 mg/dL (65-115) H 02/12/25 04:24 Calculated Osmolality 291 mOsm/kg (285-295) 02/12/25 04:24 Calcium 8.0 mg/dL (8.5-10.5) L 02/12/25 04:24 Urine Color Dark yellow (Yellow) A 02/11/25 09:08 Urine Appearance Clear (CLEAR) 02/11/25 09:08 Urine pH 5.0 (5-7) 02/11/25 09:08 Ur Specific [place] 1.028 (1.005-1.030) 02/11/25 09:08 Urine Protein Trace (Negative) A 02/11/25 09:08 Urine Glucose (UA) Negative (Normal) 02/11/25 09:08 Urine Ketones Trace (Negative) 02/11/25 09:08 Urine Blood Negative (Negative) 02/11/25 09:08 Urine Nitrate Negative (Negative) 02/11/25 09:08 Urine Bilirubin Negative (Negative) 02/11/25 09:08 Urine Urobilinogen 1.0 mg/dL (Negative) 02/11/25 09:08 Ur Leukocyte Esterase Trace (Negative) A 02/11/25 09:08 Urine RBC 0-4 /hpf (0-2) H 02/11/25 09:08 Urine WBC 5-10 /hpf (0-5) H 02/11/25 09:08 Ur Squamous Epith Cells 5-10 /hpf (0-5) H 02/11/25 09:08 Amorphous Sediment Not Reportable 02/11/25 09:08 Urine Bacteria None /hpf (NONE) 02/11/25 09:08 Urine Mucus Trace /hpf 02/11/25 09:08 Vitals Last Vital Signs Temp 97.8 F 02/12/25 11:21 Pulse 68 02/12/25 11:21 Resp 16 02/12/25 11:21 BP 144/79 02/12/25 11:21 Pulse Ox 92 02/12/25 11:21 O2 Del Method Room Air 02/12/25 11:21 O2 Flow Rate 10 02/11/25 13:50 Discharge Plan Discharge Patient Disposition: Home Health Service Condition: Stable Prescriptions: New acetaminophen 500 mg Tablet 1,000 mg PO Q8H 15 Days Qty: 0 0RF aspirin 325 mg Tablet,Delayed Release (Dr/Ec) 325 mg PO DAILY 30 Days Qty: 30 0RF celecoxib 200 mg Capsule 200 mg PO Q12H 30 Days Qty: 60 0RF oxycodone 5 mg Tablet 5 mg PO Q4H PRN (Reason: Moderate To Severe Pain) 7 Days Qty: 40 0RF Continued Adult Probiotic 3 billion cell capsule 3,000 mmu cells PO DAILY Rx Instructions: administer with a meal mesalamine 1.2 gram tablet,delayed release (DR/EC) 4.8 g PO DAILY Lumigan 0.01 % drops 2 drop ophthalmic (eye) BEDTIME Rx Instructions: right eye tizanidine 4 mg tablet 4 mg PO TID PRN (Reason: muscle spasticity) Qty: 90 1RF (DME) cane See Rx Instructions .Route .MEDSUPPLY Qty: 1 0RF Rx Instructions: As directed flecainide 50 mg tablet 50 mg PO .QHS furosemide [Lasix] 20 mg tablet 20 mg PO DAILY PRN (Reason: edema) Qty: 30 2RF ondansetron 4 mg tablet,disintegrating 4 mg PO Q6H PRN (Reason: nausea and vomiting) Qty: 20 11RF hydrocodone-acetaminophen 10-325 mg tablet 1 tab PO TID PRN (Reason: pain) 30 Days Qty: 90 0RF nitrofurantoin monohyd/m-cryst [Macrobid] 100 mg capsule 100 mg PO Q12H 5 Days Qty: 10 0RF Rx Instructions: must administer with a meal/food allopurinol 100 mg tablet 100 mg PO DAILY Rx Instructions: TAKE 1 TABLET BY MOUTH DAILY esomeprazole magnesium 40 mg capsule,delayed release(DR/EC) 40 mg PO DAILY Rx Instructions: TAKE 1 CAPSULE BY MOUTH DAILY montelukast 10 mg tablet 10 mg PO DAILY Rx Instructions: TAKE 1 TABLET BY MOUTH DAILY loratadine 10 mg tablet 10 mg PO DAILY Rx Instructions: TAKE ONE TABLET BY MOUTH EVERY DAY levothyroxine 112 mcg tablet 112 mcg PO DAILY potassium chloride 10 mEq tablet,ER particles/crystals 10 meq PO DAILY PRN (Reason: take with Lasix) Rx Instructions: TAKE 1 TABLET BY MOUTH DAILY metoprolol tartrate 25 mg tablet 25 mg PO DAILY Rx Instructions: TAKE 1 TABLET BY MOUTH TWO TIMES A DAY * IF SYMPTOMATIC YOU MAY INCREASE TO 2 TABLETS TWO TIMES A DAY * solifenacin 10 mg tablet 10 mg PO DAILY Rx Instructions: TAKE 1 TABLET BY MOUTH DAILY Discharge Order = DC NOW: Discharge Order (Routine); Ordered 02/12/25 Ordered By: Francisca Capellan Other Ambulatory Orders: DME: Albert (Order) Location: None Selected Ordered By: Francisca Capellan Referrals: Francisca Capellan MD [Physician, Orthopedics] - 02/24/25 2:45 pm Discharge Diet: Advance as tolerated and Usual diet Discharge Activity: Increase activity as tolerated, Limit activity as instructed, Use walker/crutches as instructed and As per PT/OT instructions Patient Instructions: Aspirin (By mouth), Oxycodone, Rapid Release (By mouth), Celecoxib (By mouth), Acute Wound Care (DC), Total Knee Replacement (GEN), Joint Replacement Stoplight, Opioid Safety, Post Anesthesia Care, Patient Portal & Felice Instructions Activity Restrictions/Additional Instructions: Weight-bear as tolerated. Range of motion, strengthening, gait training per physical therapy. You may shower and get your dressing wet, but if it lifts up off your knee please remove it. Do not place your knee in standing water. Otherwise, you may leave the dressing in place until you are seen in the office. Ice to right knee. Elevation. Discharge Attestations Time Spent in Discharge Care*: greater than 30 min Specific Discharge Activities: educating patient, documenting/other paperwork and evaluating patient/reviewing data Quality Metrics Clinical Quality Measures [ No reported AMI, CVA or VTE this stay] Coding Level of Care Code Acute Code for Chg Fwd Diagnoses Primary osteoarthritis of right knee M17.11 Status post total right knee replacement not using cement Z96.651
[2025-02-12] MEDS: HYDROcodone-acetaminophen 10-325 mg Tablet 1 TAB PO (12:33)
== END 2025-02-12 17:00 | disposition home health service (06) ==
LOC: MEDSURG 14:00
PROVIDERS: Admitting Provider Specialist; PCP Family Medicine; Visit Provider Specialist
PROC: 8E0Y0CZ Robotic Assisted Procedure of Lower Extremity, Open Approach (ICD-10-PCS; CPT 27447; principal; 2025-02-11 10:05)
DX: M17.11 Unilateral primary osteoarthritis, right knee (principal); M25.761 Osteophyte, right knee; K21.9 Gastro-esophageal reflux disease without esophagitis; E03.9 Hypothyroidism, unspecified; I10 Essential (primary) hypertension; K50.90 Crohn's disease, unspecified, without complications; Z86.718 Personal history of other venous thrombosis and embolism; Z79.891 Long term (current) use of opiate analgesic; E11.9 Type 2 diabetes mellitus without complications; Z85.3 Personal history of malignant neoplasm of breast; I47.10 Supraventricular tachycardia, unspecified; R01.1 Cardiac murmur, unspecified
CPT/HCPCS: 27447; 20985; 36415; 51702; 73560; 80048; 81001; 85025; 97110; 97116; 97161; 97167; A4216; C1776; G0378; J0131; J0666; J0690; J1100; J1171; J2405; J2704; J3010; J3373; J3490; J7030; J9999

== ENCOUNTER → 2025-02-24 14:43 | Outpatient (BNVA) | payer OTHER, MEDICAID, SELFPAY | PROVIDERS: PCP Family Medicine; Visit Provider Specialist | DX: Z98.890 Other specified postprocedural states (principal); Z96.651 Presence of right artificial knee joint | CPT/HCPCS: 73560; 73565; 99024 ==

== ENCOUNTER 2025-03-13 05:00 | Outpatient (RCR) | payer MEDICAID, MEDICARE, SELFPAY | END 2025-04-11 23:59 | disposition home or self-care (01) | LOC: SPT 05:00 | PROVIDERS: PCP Family Medicine; Visit Provider Specialist | DX: Z96.651 Presence of right artificial knee joint (principal) | CPT/HCPCS: 97110; 97161 ==

== ENCOUNTER → 2025-03-22 13:13 | Outpatient (BNVA) | payer OTHER, MEDICAID, SELFPAY | PROVIDERS: PCP Family Medicine; Visit Provider Specialist | DX: Z98.890 Other specified postprocedural states (principal); Z96.651 Presence of right artificial knee joint | CPT/HCPCS: 73560; 73565; 99024 ==

== ENCOUNTER 2025-04-12 05:00 | Outpatient (RCR) | payer MEDICARE, MEDICAID, SELFPAY | END 2025-05-12 23:59 | disposition home or self-care (01) | LOC: SPT 05:00 | PROVIDERS: PCP Family Medicine; Visit Provider Specialist | DX: Z47.1 Aftercare following joint replacement surgery (principal); Z96.651 Presence of right artificial knee joint | CPT/HCPCS: 97110 ==

== ENCOUNTER → 2025-04-16 11:06 | Outpatient (BNVA) | payer MEDICARE, MEDICAID, SELFPAY | PROVIDERS: PCP Family Medicine; Visit Provider Specialist | DX: M17.12 Unilateral primary osteoarthritis, left knee (principal) | CPT/HCPCS: 20610; J1100; J2795; J3301; J9999 ==

== ENCOUNTER → 2025-04-26 13:24 | Outpatient (BNVA) | payer MEDICARE, MEDICAID, SELFPAY | PROVIDERS: PCP Family Medicine; Visit Provider Family Medicine | DX: I10 Essential (primary) hypertension (principal); E03.9 Hypothyroidism, unspecified; Z79.899 Other long term (current) drug therapy; Z79.891 Long term (current) use of opiate analgesic | CPT/HCPCS: 80053; 84443; 85025 ==